=== PATIENT | female | born 1945 | race Caucasian/White ===

== ENCOUNTER 2017-08-26 16:10 | Inpatient (IN) | payer MEDICARE ==
[~2017-08-26] VITALS: Ht 165.1 cm; Wt 76.7 kg
[~2017-08-26 16:10] MED LIST: LATA0.00 EACH EYE; LEVO.025 PO; NIFE1TAB85 PO; VITA-13 PO
[2017-08-26 16:11] VITALS: BP 182/97; PULSE 111; RESP 18; TEMP 98.2; O2SAT 99
[2017-08-26] MEDS ORDERED: LEVO25TA4 PO (17:09)
[2017-08-26] MEDS ORDERED: NIFE30TA61 PO (17:10)
[2017-08-26] MEDS ORDERED: CHOL100025 CHEW (17:10)
[2017-08-26] MEDS ORDERED: LATA0.002 EACH EYE (17:10)
--- NOTE | 2017-08-26 17:45 | PD ---
HPI Chief Complaint: Abnormal Results Time Seen by Provider: 17:16 Travel History International Travel<30 days: No Contact w/Intl Traveler<30days: No Traveled to known affect area: No History of Present Illness HPI 72yo F with PMH of breast cancer said she was sent from her PMD DR. Herman to be admitted. Said she has been having headache for 3 weeks that is associated with expressive aphasia. Said she had a CT brain yesterday and then an MRI brain at [facility] today and it showed that she has a mass in her brain. Pt had double mastectomy in end of 2015 and had been cancer free until probably now. Denies any fever, chest pain, sob, n/v, abdominal pain, focal weakness or numbness. PFSH Past Medical History Arthritis: Yes Cancer: Yes (BILAT) Cardiovascular Problems: No High Cholesterol: Yes Diabetes: No Diminished Hearing: No Endocrine: Yes Glaucoma: No Genitourinary: No Hepatitis: No Hiatal Hernia: No Hypertension: Yes Immune Disorder: No Medical other: No Musculoskeletal: Yes (ARTHRITIS) Neurologic: No Psychiatric: No Reproductive: No Respiratory: No Radiation Therapy: Yes Thyroid Disease: Yes Tetanus Vaccination: < 5 Years Influenza Vaccination: No Menopausal: Yes : 3 Para: 2 Miscarriage: 1 : 0 Past Surgical History Abdominal Surgery: No AICD: No Cardiac Surgery: No Ear Surgery: No Endocrine Surgery: Yes (PARTIAL THYROIDECTOMY, PARATHYROIDECTOMY) Eye Surgery: Yes (BILAT EYE CATARACT) Genitourinary Surgery: No Gynecologic Surgery: Yes (LUMPECTOMY LEFT BREAST/HYSTERECTOMY) Hysterectomy: Yes Joint Replacement: No Oral Surgery: No Pacemaker: No Thoracic Surgery: No Social History Alcohol Use: No Tobacco Use: No Substance Use: No Allergies-Medications (Allergen,Severity, Reaction): Coded Allergies: No Known Allergies (Verified Allergy, Unknown, 08/26/17) Reported Meds & Prescriptions Reported Meds & Active Scripts Active Reported Latanoprost Opth Drops (Latanoprost) 0.005% Drops 1 Drop EACH EYE HS Refrigerate until opened. Vitamin D3 (Cholecalciferol) 1,000 Unit Chew 1,000 Units CHEW DAILY Nifedipine ER 24 HR (Nifedipine) 30 Mg Tab 30 Mg PO DAILY Levothyroxine (Levothyroxine Sodium) 25 Mcg Tab 25 Mcg PO DAILY Review of Systems Except as stated in HPI: all other systems reviewed are Neg Physical Exam Narrative GENERAL: 72yo F not in distress. SKIN: Focused skin assessment warm/dry. HEAD: Atraumatic. Normocephalic. EYES: Pupils equal and round at 3mm bilaterally. EOMI. ENT: No nasal bleeding or discharge. Mucous membranes pink and moist. NECK: Trachea midline. No JVD. CARDIOVASCULAR: Regular rate and rhythm. No murmur appreciated. RESPIRATORY: No accessory muscle use. Clear to auscultation. Breath sounds equal bilaterally. GASTROINTESTINAL: Abdomen soft, non-tender, nondistended. MUSCULOSKELETAL: No obvious deformities. No clubbing. No cyanosis. No edema. NEUROLOGICAL: Awake and alert. No obvious cranial nerve deficits. Motor grossly within normal limits. Sensation intact. Expressive aphasia. Data Data Last Documented VS Vital Signs Date Time Temp Pulse Resp B/P (MAP) Pulse Ox O2 Delivery O2 Flow Rate FiO2 08/26/17 18:50 74 18 188/86 (120) 97 Room Air 08/26/17 16:11 98.2 Orders Orders Complete Blood Count With Diff (08/26/17 17:41) Basic Metabolic Panel (Bmp) (08/26/17 17:41) Prothrombin Time / Inr (Pt) (08/26/17 17:41) Act Partial Throm Time (Ptt) (08/26/17 17:41) Type And Screen (08/26/17 17:41) Dexamethasone Inj (Decadron Inj) (08/27/17 00:00) Consult Neurosurgery (08/26/17 ) Consult Medical Oncology (08/26/17 ) (Hub Use Only)Inp Phy Cons/Ref (08/26/17 ) (Hub Use Only)In Phy Cons/Ref (08/26/17 ) Potassium Chloride (Kcl) (08/26/17 19:00) Admit Order (Ed Use Only) (08/26/17 18:53) Admit To Inpatient (08/26/17 ) Code Status (08/26/17 18:54) Vital Signs (Adult) MELISSA.Q1H (08/26/17 18:54) Activity Bed Rest (08/26/17 18:54) Elevate Head Of Bed (08/26/17 18:54) Neuro Checks . ORDERED (08/26/17 18:54) Intake + Output Q1H (08/26/17 18:54) Sodium Chlor 0.9% 1000 Ml Inj (Ns 1000 M (08/26/17 18:54) Sodium Chloride 0.9% Flush (Ns Flush) (08/26/17 19:00) Sodium Chloride 0.9% Flush (Ns Flush) (08/26/17 21:00) Acetaminophen (Tylenol) (08/26/17 19:00) Acetamin-Hydrocod 325-5 Mg ([place] 5-325 (08/26/17 19:00) Ondansetron Inj (Zofran Inj) (08/26/17 19:00) Albuterol Neb (Albuterol Neb) (08/26/17 19:00) Complete Blood Count With Diff (08/27/17 04:00) Comprehensive Metabolic Panel (08/27/17 04:00) Act Partial Throm Time (Ptt) (08/27/17 04:00) Prothrombin Time / Inr (Pt) (08/27/17 04:00) Magnesium (Mg) (08/27/17 04:00) Phosphorus (Po4) (08/27/17 04:00) Lactic Acid (08/27/17 04:00) Chest, Single Ap (08/27/17 ) Electrocardiogram (08/26/17 ) Resp Incentive Spirometry (08/26/17 ) Resp Oxygen Andre C Titrat 1-4 L (08/26/17 ) Pt Request For Service (08/26/17 18:54) [employer] Helper / Telemetry MELISSA.Q8H (08/26/17 18:54) Scd Bilateral/Knee High MELISSA.BID (08/26/17 18:54) Pharmacologic Contraindication (08/26/17 18:54) ^ Initiate Protocol (08/26/17 18:54) Instruction (08/26/17 18:54) [facility] Information (08/26/17 19:00) Chlorhexidine 2% Cloth (Chlorhexidine 2% (08/27/17 04:00) Chlorhexidine 2% Cloth (Chlorhexidine 2% (08/26/17 19:00) Mrsa Pcr Surveillance (08/26/17 18:54) Docusate Sodium-Senna (Renita-Colace) (08/26/17 21:00) Magnesium Hydroxide Liq (Milk Of Magnesi (08/26/17 19:00) Sennosides (Senokot) (08/26/17 19:00) Bisacodyl Supp (Dulcolax Supp) (08/26/17 19:00) Lactulose Liq (Lactulose Liq) (08/26/17 19:00) Inpatient Certification (08/26/17 ) Morphine Inj (Morphine Inj) (08/26/17 19:15) Labs Laboratory Tests Test 08/26/17 17:45 White Blood Count 8.1 TH/MM3 Red Blood Count 4.53 MIL/MM3 Hemoglobin 13.7 GM/DL Hematocrit 39.6 % Mean Corpuscular Volume 87.4 FL Mean Corpuscular Hemoglobin 30.2 PG Mean Corpuscular Hemoglobin Concent 34.6 % Red Cell Distribution Width 14.9 % Platelet Count 332 TH/MM3 Mean Platelet Volume 7.5 FL Neutrophils (%) (Auto) 74.5 % Lymphocytes (%) (Auto) 16.4 % Monocytes (%) (Auto) 7.9 % Eosinophils (%) (Auto) 0.8 % Basophils (%) (Auto) 0.4 % Neutrophils # (Auto) 6.0 TH/MM3 Lymphocytes # (Auto) 1.3 TH/MM3 Monocytes # (Auto) 0.6 TH/MM3 Eosinophils # (Auto) 0.1 TH/MM3 Basophils # (Auto) 0.0 TH/MM3 CBC Comment DIFF FINAL Differential Comment Prothrombin Time 9.8 SEC Prothromb Time International Ratio 1.0 RATIO Activated Partial Thromboplast Time 26.9 SEC Blood Urea Nitrogen 13 MG/DL Creatinine 0.79 MG/DL Random Glucose 108 MG/DL Calcium Level 9.2 MG/DL Sodium Level 138 MEQ/L Potassium Level 3.3 MEQ/L Chloride Level 102 MEQ/L Carbon Dioxide Level 27.0 MEQ/L Anion Gap 9 MEQ/L Estimat Glomerular Filtration Rate 72 ML/MIN [facility] Medical Decision Making Medical Screen Exam Complete: Yes Emergency Medical Condition: Yes Differential Diagnosis Metastatic disease vs. primary brain tumor Narrative Course 72yo F was sent here by PMD for admission after MRI brain today showed vasogenic edema and possible metastatic disease. Discussed with Dr. Mayorga, our neurosurgeon dental receptionist and he recommends decadron Q6hr, admission to [facility], and consult him and oncology. Decadron ordered as well as oncology consult and neurosurgery consult. Labs reviewed, unremarkable except mild hypokalemia which is replaced orally. Discussed with Dr. Arthur and accepted to his service. Critical Care Narrative Aggregate critical care was 35 minutes. Time to perform other separately billable procedures was not included in the critical care time. My time did not include minutes spent treating any other patients simultaneously or on activities that did not directly contribute to the patient's treatment. The services I provided to this patient were to treat and/or prevent clinically significant deterioration that could result in: cardiovascular collapse or . I provided critical care services requiring my management, as noted below: Chart data review, documentation time, medication orders and management, vital sign assessments/reviewing monitoring data, ordering and reviewing lab tests, ordering and interpreting/reviewing x-rays and diagnostic studies, care of the patient and discussion of the patient with the admitting physicians. Diagnosis Primary Impression: Mass of temporoparietal region of brain Admitting Information Admitting Physician Requests: Barbara Steinberg DO Aug 26, 2017 17:45
[2017-08-26 18:09] LABS: BASOPHIL % 0.4 % (0.0-2.0); EOSINOPHIL # 0.1 TH/MM3 (0-0.4); EOSINOPHIL % 0.8 % (0.0-4.0); HEMATOCRIT 39.6 % (35.0-46.0); HEMOGLOBIN 13.7 GM/DL (11.6-15.3); LYMPH % 16.4 % (9.0-44.0); LYMPHOCYTE # 1.3 TH/MM3 (1.0-4.8); MEAN CELL VOLUME 87.4 FL (80.0-100.0); MEAN CORPUSCULAR HEMOGLOBIN 30.2 PG (27.0-34.0); MEAN CORPUSCULAR HGB CONC 34.6 % (32.0-36.0); MEAN PLATELET VOLUME 7.5 FL (7.0-11.0); MONO % 7.9 % (0.0-8.0); MONOCYTE # 0.6 TH/MM3 (0-0.9); NEUT % 74.5 % (16.0-70.0); PLATELET COUNT 332 TH/MM3 (150-450); RED BLOOD COUNT 4.53 MIL/MM3 (4.00-5.30); RED CELL DISTRIBUTION WIDTH 14.9 % (11.6-17.2); WHITE BLOOD COUNT 8.1 TH/MM3 (4.0-11.0)
[2017-08-26 18:19] LABS: PROTHROMBIN TIME - PATIENT 9.8 SEC (9.8-11.6)
[2017-08-26 18:41] LABS: CALCIUM 9.2 MG/DL (8.5-10.1); CREATININE 0.79 MG/DL (0.50-1.00)
[2017-08-26 18:50] VITALS: BP 188/86; PULSE 74; RESP 18; O2SAT 97
[2017-08-26] MEDS ORDERED: RESP: ALBUTEROL 2.5 MG/3 ML NEB (PRN) INH (19:00)
[2017-08-26] MEDS ORDERED: LACTULOSE SYRUP 20 GM/30 ML CUP PO PRN (19:00)
[2017-08-26] MEDS ORDERED: GLUCAGON 1 MG/ML VIAL OTHER PRN (19:00)
[2017-08-26] MEDS ORDERED: SENNOSIDES 8.6 MG TAB PO PRN (19:00)
[2017-08-26] MEDS ORDERED: BISACODYL 10 MG SUPP RECTAL PRN (19:00)
[2017-08-26] MEDS ORDERED: SODIUM CHLORIDE 0.9% FLUSH 10 ML FLUSH IV FLUSH PRN (19:00)
[2017-08-26] MEDS ORDERED: POTASSIUM CHLORIDE 20 MEQ CONTROLLED RELEASE TAB PO ONE ×2 (19:00→21:00)
[2017-08-26] MEDS ORDERED: MAGNESIUM HYDROXIDE SUSP 30 ML CUP PO PRN (19:00)
[2017-08-26] MEDS ORDERED: DEXTROSE 50% IN WATER 50 ML VIAL(D50) IV PUSH PRN (19:00)
[2017-08-26] MEDS ORDERED: ONDANSETRON HCL 4 MG/2 ML VIAL IV PUSH PRN (19:00)
[2017-08-26] MEDS ORDERED: MISCELLANEOUS NURSING INFORMATION XX SCH (19:00)
[2017-08-26] MEDS ORDERED: CHLORHEXIDINE GLUCONATE 2 % 1 PACK (2 CLOTHS) TOP PRN (19:00)
--- NOTE | 2017-08-26 19:07 | HHI.HP ---
[facility] Service Critical Care Medicine Primary Care Physician Simeon Herrmann Jr, MD Admission Diagnosis Vasogenic edema Diagnosis: (1) Mass of temporoparietal region of brain Diagnosis: Principal (2) History of breast cancer in female Diagnosis: Principal (3) Hypothyroidism Diagnosis: Principal (4) Dyslipidemia Diagnosis: Secondary (5) Hypertension Diagnosis: Secondary (6) Hypokalemia Diagnosis: Principal (7) Elevated IOP Diagnosis: Secondary Chief Complaint: Presented from [place] via for brain mass Travel History International Travel<30 Days: No Contact w/Intl Traveler <30 Da: No Traveled to Known Affected Are: No History of Present Illness This is a 72-year-old female. Date of admission 08/26/2017. 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 She has a history of hypercalcemia status post partial parathyroidectomy. Patient presents to [facility] as a direct admit from doctor's office after an abnormal MRI. Patient has been experiencing headaches/occipitally based without vision changes for the past month. She has had gait imbalance disorder. She denies any seizure activity. She has not followed. She complains of headache as a 3 out of 10. Diffuse. Without radiation. Patient is CT yesterday without contrast and today had an MRI which I was able to review the report of. This revealed views a day continue with cortical enhancement and restricted diffusion in the left temporal occipital lobes. A smaller blister is seen in the left frontal and parietal lobes. Very small punctate hemorrhage in the left posterior parietal lobe. Dr. Mayorga/neurosurgery is contacted. Medicine oncology was consulted. We are asked to admit the patient. Patient received 4 mg dexamethasone IV is currently on levetiracetam 500 mill grams IV twice a day. Patient currently awake and alert with only significant neurological abnormality on examination abnormal finger to nose bilaterally. Review of Systems Constitutional: DENIES: Fatigue, Fever, Weight gain, Weight loss Endocrine: DENIES: Abnorml menstrual pattern Eyes: DENIES: Blurred vision, Double Vision Ears, nose, mouth, throat: DENIES: Throat pain Respiratory: DENIES: Apneas, Shortness of breath Cardiovascular: DENIES: Chest pain Gastrointestinal: DENIES: Nausea, Vomiting Genitourinary: DENIES: Urinary frequency Musculoskeletal: DENIES: Joint pain, Back pain Integumentary: DENIES: Pruritus, Rash Hematologic/lymphatic: DENIES: Bruising Immunologic/allergic: DENIES: Eczema Neurologic: COMPLAINS OF: Abnormal gait, Headache, DENIES: Localized weakness, Paresthesias Psychiatric: COMPLAINS OF: Anxiety, DENIES: Confusion, Mood changes Past Family Social History Allergies: Coded Allergies: No Known Allergies (Verified Adverse Reaction, Unknown, 08/26/17) Past Medical History Elevated IOC Hypertension Dyslipidemia Hypothyroidism History of papillary/intraductal mucinous rest carcinoma Past Surgical History Partial thyroidectomy Hysterectomy Parathyroidectomy Left breast lumpectomy Bilateral mastectomy with reconstruction and implants Reported Medications Latanoprost Opth Drops (Latanoprost) 0.005% Drops 1 Drop EACH EYE HS Refrigerate until opened. Vitamin D3 (Cholecalciferol) 1,000 Unit Chew 1,000 Units CHEW DAILY Nifedipine ER 24 HR (Nifedipine) 30 Mg Tab 30 Mg PO DAILY Levothyroxine (Levothyroxine Sodium) 25 Mcg Tab 25 Mcg PO DAILY Active Ordered Medications Reviewed in EMR Family History Father with colon cancer. Mother with NUCLE[employer] PLANT OPERATOR lymphoma. Social History Quit tobacco in her early 20s. No alcohol use. No illicit drug use. Physical Exam Vital Signs Vital Signs Date Time Temp Pulse Resp B/P (MAP) Pulse Ox O2 Delivery O2 Flow Rate FiO2 08/26/17 18:50 74 18 188/86 (120) 97 Room Air 08/26/17 17:04 Room Air 08/26/17 16:11 98.2 111 18 182/97 (125) 99 Room Air Physical Exam GENERAL: 72-year-old female currently resting in bed in no acute distress SKIN: Warm and dry. HEAD: Atraumatic. Normocephalic. EYES: Pupils equal and round. No scleral icterus. No injection or drainage. ENT: No nasal bleeding or discharge. Mucous membranes pink and moist. NECK: Trachea midline. No JVD. CARDIOVASCULAR: Regular rate and rhythm. S1, S2. No S4. Without murmur RESPIRATORY: No accessory muscle use. Clear to auscultation. Breath sounds equal bilaterally. GASTROINTESTINAL: Abdomen soft, non-tender, nondistended. Active bowel sounds appreciated. Positive Pfannenstiel scar in abdomen. MUSCULOSKELETAL: Extremities without noted in peripheral edema. No obvious deformities. NEUROLOGICAL: Awake and alert. Renal nerves II through XII grossly intact. Strength is equal symmetric bilaterally. Normal sensation. Abnormal finger- nose bilateral. Laboratory Laboratory Tests Test 08/26/17 17:45 White Blood Count 8.1 Red Blood Count 4.53 Hemoglobin 13.7 Hematocrit 39.6 Mean Corpuscular Volume 87.4 Mean Corpuscular Hemoglobin 30.2 Mean Corpuscular Hemoglobin Concent 34.6 Red Cell Distribution Width 14.9 Platelet Count 332 Mean Platelet Volume 7.5 Neutrophils (%) (Auto) 74.5 Lymphocytes (%) (Auto) 16.4 Monocytes (%) (Auto) 7.9 Eosinophils (%) (Auto) 0.8 Basophils (%) (Auto) 0.4 Neutrophils # (Auto) 6.0 Lymphocytes # (Auto) 1.3 Monocytes # (Auto) 0.6 Eosinophils # (Auto) 0.1 Basophils # (Auto) 0.0 CBC Comment DIFF FINAL Differential Comment Prothrombin Time 9.8 Prothromb Time International Ratio 1.0 Activated Partial Thromboplast Time 26.9 Blood Urea Nitrogen 13 Creatinine 0.79 Random Glucose 108 Calcium Level 9.2 Sodium Level 138 Potassium Level 3.3 Chloride Level 102 Carbon Dioxide Level 27.0 Anion Gap 9 Estimat Glomerular Filtration Rate 72 Result Diagram: 08/26/17 1745 08/26/17 1745 Imaging MRI brain - vasogenic edema associated with cortical enhancement and restricted diffusion identified in the left temporal occipital lobes. Smaller cortically based areas of enhancement seen in the left frontal and parietal lobes. Very small punctate hemorrhage in the left posterior parietal lobe. Septic Shock Reassessment Septic shock perfusion: reassessment completed Caprini VTE Risk Assessment Caprini VTE Risk Assessment: Mod/High Risk (score >= 2) VTE Pharm Contraindication: Active bleeding Caprini Risk Assessment Model Point Value = 1 Point Value = 2 Point Value = 3 Point Value = 5 Age 41-60 Minor surgery BMI > 25 kg/m2 Swollen legs Varicose veins or History of unexplained or recurrent spontaneous Oral contraceptives or hormone replacement Sepsis (< 1 month) Serious lung disease, including pneumonia (< 1 month) Abnormal pulmonary function Acute myocardial infarction Congestive heart failure (< 1 month) History of inflammatory bowel disease Medical patient at bed rest Age 61-74 Arthroscopic surgery Major open surgery (> 45 min) Laparoscopic surgery (> 45 min) Malignancy Confined to bed (> 72 hours) Immobilizing plaster cast Central venous access Age >= 75 History of VTE Family history of VTE Factor V Leiden Prothrombin [id number] Lupus anticoagulant Anticardiolipin antibodies Elevated serum homocysteine Heparin-induced thrombocytopenia Other congenital or acquired thrombophilia Stroke (< 1 month) Elective arthroplasty Hip, pelvis, or leg fracture Acute spinal cord injury (< 1 month) Prophylaxis Regimen Total Risk Factor Score Risk Level Prophylaxis Regimen 0-1 Low Early ambulation 2 Moderate Order ONE of the following: *Sequential Compression Device (SCD) *Heparin 5000 units SQ BID 3-4 Higher Order ONE of the following medications: *Heparin 5000 units SQ TID *Enoxaparin/Lovenox 40 mg SQ daily (WT < 150 kg, CrCl > 30 mL/min) *Enoxaparin/Lovenox 30 mg SQ daily (WT < 150 kg, CrCl > 10-29 mL/min) *Enoxaparin/Lovenox 30 mg SQ BID (WT < 150 kg, CrCl > 30 mL/min) AND/OR *Sequential Compression Device (SCD) 5 or more Highest Order ONE of the following medications: *Heparin 5000 units SQ TID (Preferred with Epidurals) *Enoxaparin/Lovenox 40 mg SQ daily (WT < 150 kg, CrCl > 30 mL/min) *Enoxaparin/Lovenox 30 mg SQ daily (WT < 150 kg, CrCl > 10-29 mL/min) *Enoxaparin/Lovenox 30 mg SQ BID (WT < 150 kg, CrCl > 30 mL/min) AND *Sequential Compression Device (SCD) Assessment and Plan Assessment and Plan Neuro/Psych: Left frontal parietal/temporal occipital lobe vasogenic edema/masses - likely breast cancer metastatic disease Small punctate hemorrhage left posterior parietal lobe p Elevated IOC MRI brain 08/26 at 20 mics revealed vasogenic edema associated with cortical has been restricted diffusion in the left temporal occipital. Small cortical-based areas of enhancement seen in the left frontal and parietal lobes. Very small punctate hemorrhage in the left posteroparietal lobe. Currently on dexamethasone 4 mg IV every 6 hours and levetiracetam 500 mill grams IV twice a day Seizure precautions Neurosurgery consultation - Dr. Mayorga Oncology consultation Continue latanoprost .005% 1 drop each eye at night CV: Hypertension Dyslipidemia Continue nifedipine 30 mg by mouth daily/home medication As needed labetalol 10 mg every hour/hydralazine 10 mg every hour to keep systolic blood pressure less than 160 Follow-up on EKG Currently not on lipid-lowering agents On normal saline at 84 cc an hour Resp: Nasal cannula if indicated for saturations greater than equal to 92% Incentive spirometry while awake Chest x-ray for a.m. ordered GI: Nothing by mouth after midnight. Pantoprazole 40 mg daily for GI prophylaxis Docusate sodium/senna 1 tablet twice a day for bowel regimen : No indication for Guerrero catheter Endo: Hypothyroidism History of parathyroidectomy 2009 Continue levothyroxine 25 mcg by mouth daily. Check a.m. TSH Sliding-scale insulin with Novulin R with Accu-Cheks to maintain euglycemia/low regimen before meals at bedtime Renal: Creatinine currently within normal limits Monitor urine output Accurate I's and O's Heme: History of intraductal/papillary and mucinous breast carcinoma status post bilateral mastectomy with reconstruction and implant placement CBC and coags within normal limits Oncology consultation ID: Monitor for infection MSK: Osteoarthritis Continue cholecalciferol 1000 units daily PT evaluate and treat FEN: Access - Utilize peripheral IV. Central line if indicated Prophylaxis - GI -pantoprazole 40 mg by mouth daily - DVT - SCDs/holding pharmacological prophylaxis the brain/small punctuate left posteroparietal lobe hemorrhage. Level II admission Code Status Full code Discussed Condition With Dr. Lopez/ED physician. Patient. Care plan discussed and all questions answered. Problem Qualifiers (1) Hypothyroidism: Qualified Codes: E03.9 - Hypothyroidism, unspecified (2) Hypertension: Qualified Codes: I10 - Essential (primary) hypertension (3) Elevated IOP: Qualified Codes: H40.053 - Ocular hypertension, bilateral BigPrudencio tavera MD Aug 26, 2017 19:07
[2017-08-26 19:23] VITALS: BP 178/87; PULSE 75; RESP 16; O2SAT 95
[2017-08-26] MEDS: SODIUM CHLOR 0.9% 1000 ML INJ 1,000 ML IV SCH (20:10)
[2017-08-26] MEDS: INSULIN NovoLIN REGULAR SUPPLEMENTAL SCALE SQ SCH (21:00)
[2017-08-26] MEDS: DOCUSATE SODIUM 50 MG/SENNA 8.6 MG TAB PO SCH (21:00)
[2017-08-26] MEDS: SODIUM CHLORIDE 0.9% FLUSH 10 ML FLUSH IV FLUSH SCH (21:00)
[2017-08-26 22:00] VITALS: BP 187/81; PULSE 81; RESP 20; TEMP 98.6; O2SAT 96
[2017-08-26] MEDS: levETIRAcetam INJ 500 MG in SODIUM CHLORIDE 0.9% INJ 100 ML IV SCH (22:13)
[2017-08-26] MEDS: hydrALAZINE HCL 20 MG/ML VIAL IV PUSH PRN (22:14)
--- NOTE | 2017-08-26 22:39 | PD.CONS ---
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 She presented with expressive aphasia and was snt to [facility] from doctor's office after an abnormal MRI. Patient has been experiencing headaches/occipitally based without vision changes for the past month. She has had gait imbalance disorder. She denies any seizure activity. No tongue bitting. No incontinence of stool or urine. She complains of headache as a 3 out of 10. Diffuse. Without radiation. Patient is CT yesterday without contrast and today had an MRI which showed cortical enhancement and restricted diffusion in the left temporal occipital lobes. A smaller blister is seen in the left frontal and parietal lobes. A small punctate hemorrhage in the left posterior parietal lobe. Neurosurgical consultation was requested Past Family Social History Allergies: Coded Allergies: No Known Allergies (Verified Allergy, Unknown, 08/26/17) Physical Exam Vital Signs Vital Signs Date Time Temp Pulse Resp B/P (MAP) Pulse Ox O2 Delivery O2 Flow Rate FiO2 08/26/17 21:16 08/26/17 19:24 81 17 95 Room Air 08/26/17 19:23 75 16 178/87 (117) 95 Room Air 08/26/17 18:50 74 18 188/86 (120) 97 Room Air 08/26/17 17:04 Room Air 08/26/17 16:11 98.2 111 18 182/97 (125) 99 Room Air Physical Exam The patient is alert, awake and oriented to time, place and person. Speech shows mild expressive aphasia. Higher cognitive functions are normal. Cranial nerve examination demonstrates the pupils to be equal, round, and reactive to light. Extra-ocular movements are intact. Facial motor and sensory function are normal and symmetrical. Gross hearing is intact, bilaterally. The uvula is midline and elevates symmetrically with the soft palate. Sternocleidomastoid and trapezius muscles have normal and symmetrical strength. Other cranial nerves are intact. Neck is soft and supple. Cervical spine has a full range of motion in anterior flexion, extension, lateral bending, and rotation without pain. There is no tenderness to palpation to the spinous processes or paraspinal muscles. Muscle testing reveals normal bulk and tone overall without rigidity, spasticity , fasciculations, or atrophy. Muscle strength is 5/5 in all muscle groups of both upper extremities including deltoid, biceps, triceps, brachioradialis, wrist extension and stained glass glazier helper. In the lower extremities, strength is 5/5 in both iliopsoas, quadriceps, hamstrings, plantar flexion, dorsiflexion, and extensor hallicus longus. Sensory examination is intact to light touch and sharp/dull discrimination in both the upper and lower extremities, symmetrically. Deep tendon reflexes are 2+ and symmetrical in the biceps, triceps, and brachioradialis, bilaterally, in the upper extremities. In the lower extremities , the patellar and Achilles are 2+, bilaterally. There is a bilateral plantar flexion response. Hoffmanns sign is negative. There is no clonus or other abnormal reflexes noted. Cerebellar examination is intact to [id number] test, rapid rhythmic alternating motion. There is no dysmetria, dysdiadochokinesia, truncal ataxia, or tremor. Laboratory Laboratory Tests Test 08/26/17 17:45 08/26/17 21:45 White Blood Count 8.1 Red Blood Count 4.53 Hemoglobin 13.7 Hematocrit 39.6 Mean Corpuscular Volume 87.4 Mean Corpuscular Hemoglobin 30.2 Mean Corpuscular Hemoglobin Concent 34.6 Red Cell Distribution Width 14.9 Platelet Count 332 Mean Platelet Volume 7.5 Neutrophils (%) (Auto) 74.5 Lymphocytes (%) (Auto) 16.4 Monocytes (%) (Auto) 7.9 Eosinophils (%) (Auto) 0.8 Basophils (%) (Auto) 0.4 Neutrophils # (Auto) 6.0 Lymphocytes # (Auto) 1.3 Monocytes # (Auto) 0.6 Eosinophils # (Auto) 0.1 Basophils # (Auto) 0.0 CBC Comment DIFF FINAL Differential Comment Prothrombin Time 9.8 Prothromb Time International Ratio 1.0 Activated Partial Thromboplast Time 26.9 Blood Urea Nitrogen 13 Creatinine 0.79 Random Glucose 108 Calcium Level 9.2 Sodium Level 138 Potassium Level 3.3 Chloride Level 102 Carbon Dioxide Level 27.0 Anion Gap 9 Estimat Glomerular Filtration Rate 72 Result Diagram: 08/26/17174408/26/171744 Assessment and Plan Assessment and Plan Caprini VTE Risk Assessment Caprini VTE Risk Assessment Caprini VTE Risk Assessment: Mod/High Risk (score >= 2) VTE Pharm Contraindication: Hemorrhage Caprini Risk Assessment Model Point Value = 1 Point Value = 2 Point Value = 3 Point Value = 5 Age 41-60 Minor surgery BMI > 25 kg/m2 Swollen legs Varicose veins or History of unexplained or recurrent spontaneous Oral contraceptives or hormone replacement Sepsis (< 1 month) Serious lung disease, including pneumonia (< 1 month) Abnormal pulmonary function Acute myocardial infarction Congestive heart failure (< 1 month) History of inflammatory bowel disease Medical patient at bed rest Age 61-74 Arthroscopic surgery Major open surgery (> 45 min) Laparoscopic surgery (> 45 min) Malignancy Confined to bed (> 72 hours) Immobilizing plaster cast Central venous access Age >= 75 History of VTE Family history of VTE Factor V Leiden Prothrombin [id number] Lupus anticoagulant Anticardiolipin antibodies Elevated serum homocysteine Heparin-induced thrombocytopenia Other congenital or acquired thrombophilia Stroke (< 1 month) Elective arthroplasty Hip, pelvis, or leg fracture Acute spinal cord injury (< 1 month) Prophylaxis Regimen Total Risk Factor Score Risk Level Prophylaxis Regimen 0-1 Low Early ambulation 2 Moderate Order ONE of the following: *Sequential Compression Device (SCD) *Heparin 5000 units SQ BID 3-4 Higher Order ONE of the following medications: *Heparin 5000 units SQ TID *Enoxaparin/Lovenox 40 mg SQ daily (WT < 150 kg, CrCl > 30 mL/min) *Enoxaparin/Lovenox 30 mg SQ daily (WT < 150 kg, CrCl > 10-29 mL/min) *Enoxaparin/Lovenox 30 mg SQ BID (WT < 150 kg, CrCl > 30 mL/min) AND/OR *Sequential Compression Device (SCD) 5 or more Highest Order ONE of the following medications: *Heparin 5000 units SQ TID (Preferred with Epidurals) *Enoxaparin/Lovenox 40 mg SQ daily (WT < 150 kg, CrCl > 30 mL/min) *Enoxaparin/Lovenox 30 mg SQ daily (WT < 150 kg, CrCl > 10-29 mL/min) *Enoxaparin/Lovenox 30 mg SQ BID (WT < 150 kg, CrCl > 30 mL/min) AND *Sequential Compression Device (SCD) Attending Statement Continue neuro checks in a serial fashion. Cannot rule out meningeal carcinomatosis/lymphomatosis/fungal infection. Recommend to obtain a lumbar puncture. Send cerebrospinal fluid for routine analysis as well as cytology Hypertension Continue nifedipine 30 mg by mouth daily/home medication As needed labetalol 10 mg every hour/hydralazine 10 mg every hour to keep systolic blood pressure less than 160 Follow-up on EKG Dyslipidemia. Currently not on lipid-lowering agents. Monitor Hypothyroidism History of parathyroidectomy 2009 Continue levothyroxine 25 mcg by mouth daily. Check a.m. TSH History of intraductal/papillary and mucinous breast carcinoma status post bilateral mastectomy with reconstruction and implant placement Consult oncology's. Her prior oncologist, has retired acetaminophen/cooling blanket as needed for temperature greater than 100.4 Pulmonary. Nasal cannula if indicated for saturations greater than equal to 92% Incentive spirometry while awake, aggressive pulmonary toilette, nasotracheal suction, and breathing treatments with nebulizers. Nutrition. NPO Renal. monitor closely urine output, BUN and creatinine Guerrero. Monitor intake and output. Monitor electrolytes and replace as indicated per ICU electrolyte replacement protocol. ENDO: Monitor bedside glucose and initiate low-dose insulin sliding scale as indicated for glucose greater than 180 central venous line Protonix for stress ulcer prophylaxis Caleb alcocer and SCD's for DVT prophylaxis. Johann Mayorga MD Aug 26, 2017 22:39
[2017-08-26] MEDS ORDERED: NIFEdipine 30 MG SUSTAINED RELEASE TAB PO ONE (23:00)
[2017-08-26] MEDS: LATANOPROST 0.005% OPHT SOLN 2.5 ML BTL EACH EYE SCH (23:00)
[2017-08-26] MEDS: DEXAMETHASONE SOD PHOS 4 MG/ML VIAL IV PUSH SCH (23:01)
[2017-08-27] VITALS (11 sets, daily range): BP systolic 117–139; BP diastolic 59–66; PULSE 68–105; RESP 15–17; TEMP 98.1–98.7; O2SAT 90–96
[2017-08-27] MEDS: CHLORHEXIDINE GLUCONATE 2 % 1 PACK (2 CLOTHS) TOP SCH (04:00)
[2017-08-27] MEDS: ACETAMINOPHEN/HYDROcodone 325 MG/5 MG TAB PO PRN (04:35)
--- NOTE | 2017-08-27 05:32 | RADRPT ---
EXAM DATE/TIME: 08/27/2017 04:12 [place] COMPARISON: No previous studies available for comparison. INDICATIONS : Short of breath. MEDICAL HISTORY : Hypertension. SURGICAL HISTORY : Hysterectomy. ENCOUNTER: Initial ACUITY: 1 day PAIN SCORE: Non-responsive. LOCATION: Bilateral chest FINDINGS: Single AP view of the chest. The lungs are clear. Cardiomediastinal silhouette within normal limits. No evidence of pleural effusion or pneumothorax. CONCLUSION: No acute cardiopulmonary disease identified. Rajan Holcomb MD on August 27, 2017 at 5:26 Board Certified Radiologist. This report was verified electronically.
[2017-08-27] MEDS: LEVOTHYROXINE SODIUM 25 MCG TAB PO SCH (05:37)
[2017-08-27] MEDS: DEXAMETHASONE SOD PHOS 4 MG/ML VIAL IV PUSH SCH ×3 (05:37→17:34)
[2017-08-27 05:54] LABS: AUTOMATED NEUTROPHIL # 6.7 TH/MM3 (1.8-7.7); BASOPHIL % 0.2 % (0.0-2.0); HEMOGLOBIN 12.3 GM/DL (11.6-15.3); LYMPH % 6.4 % (9.0-44.0); LYMPHOCYTE # 0.5 TH/MM3 (1.0-4.8); MEAN CORPUSCULAR HGB CONC 33.3 % (32.0-36.0); MEAN PLATELET VOLUME 7.1 FL (7.0-11.0); MONO % 1.1 % (0.0-8.0); MONOCYTE # 0.1 TH/MM3 (0-0.9); NEUT % 92.3 % (16.0-70.0); PLATELET COUNT 317 TH/MM3 (150-450); RED BLOOD COUNT 4.25 MIL/MM3 (4.00-5.30); RED CELL DISTRIBUTION WIDTH 14.8 % (11.6-17.2); WHITE BLOOD COUNT 7.3 TH/MM3 (4.0-11.0)
[2017-08-27 06:43] LABS: ALBUMIN 3.8 GM/DL (3.4-5.0); ALKALINE PHOSPHATASE 95 U/L (45-117); ALT (GPT) 18 U/L (10-53); AST (GOT) 12 U/L (15-37); BICARBONATE 26.9 MEQ/L (21.0-32.0); BLOOD UREA NITROGEN 14 MG/DL (7-18); CALCIUM 9.1 MG/DL (8.5-10.1); CHLORIDE 107 MEQ/L (98-107); CREATININE 0.87 MG/DL (0.50-1.00); GLOMERULAR FILTRATION RATE 64 ML/MIN (>89); GLUCOSE,RANDOM 152 MG/DL (74-106); MAGNESIUM 2.3 MG/DL (1.5-2.5); PHOSPHORUS 2.2 MG/DL (2.5-4.9); SODIUM (NA) 140 MEQ/L (136-145); TOTAL BILIRUBIN ADULT 0.5 MG/DL (0.2-1.0); TOTAL PROTEIN 7.6 GM/DL (6.4-8.2)
[2017-08-27] MEDS: INSULIN NovoLIN REGULAR SUPPLEMENTAL SCALE SQ SCH ×4 (08:00→20:33)
[2017-08-27] MEDS: SODIUM CHLOR 0.9% 1000 ML INJ 1,000 ML IV SCH ×2 (09:00→09:02)
[2017-08-27] MEDS ORDERED: NIFEdipine 30 MG SUSTAINED RELEASE TAB PO SCH ×2 (09:00→21:00)
[2017-08-27] MEDS: SODIUM CHLORIDE 0.9% FLUSH 10 ML FLUSH IV FLUSH SCH ×2 (09:00→20:03)
[2017-08-27] MEDS: CHOLECALCIFEROL (VIT D3) 1000 UNIT TAB PO SCH (09:04)
[2017-08-27] MEDS: levETIRAcetam INJ 500 MG in SODIUM CHLORIDE 0.9% INJ 100 ML IV SCH ×2 (09:04→20:01)
[2017-08-27] MEDS: PANTOPRAZOLE SOD 40 MG DELAYED RELEASE TAB PO SCH (09:04)
[2017-08-27] MEDS: DOCUSATE SODIUM 50 MG/SENNA 8.6 MG TAB PO SCH ×2 (09:04→20:01)
[2017-08-27] MEDS: MORPHINE SULFATE 2 MG/ML INJ IV PUSH PRN ×2 (10:09→12:09)
[2017-08-27] MEDS: LABETALOL HCL 100 MG/20 ML VIAL IV PUSH PRN (10:26)
[2017-08-27] MEDS: hydrALAZINE HCL 20 MG/ML VIAL IV PUSH PRN (10:41)
[2017-08-27] MEDS ORDERED: LORazepam 2 MG/ML VIAL ONE (10:55)
[2017-08-27] MEDS ORDERED: MORPHINE SULFATE 2 MG/ML INJ IV PUSH SCH (11:00)
[2017-08-27] MEDS ORDERED: LORazepam 2 MG/ML VIAL IV PUSH SCH (11:00)
--- NOTE | 2017-08-27 11:32 | PD.PROCEDR ---
Procedure Note Procedure After the risks and benefits were discussed the following procedure was performed: LUMBAR PUNCTURE: The patient was placed in the left lateral decubitus position. The lumbar area of the back was prepped with Chlorhexidine. The L3 -- L4 interspace was infiltrated with 1% lidocaine plain. LP needle was placed in the interspace. Opening pressure 24. Total 16 milliliters of clear CSF were obtained. 10 ml will be send for cytology per Dr. Mayorga request. Patient tolerated procedure well. Blood loss <1ml Ct Acevedo MD Aug 27, 2017 11:32
--- NOTE | 2017-08-27 11:41 | HHI.CCPN ---
Subjective Remarks/Hospital Course This is a 72-year-old female. Date of admission 08/26/2017. 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 She has a history of hypercalcemia status post partial parathyroidectomy. Patient presents to [facility] as a direct admit from doctor's office after an abnormal MRI. Patient has been experiencing headaches/occipitally based without vision changes for the past month. She has had gait imbalance disorder. She denies any seizure activity. She has not followed. She complains of headache as a 3 out of 10. Diffuse. Without radiation. Patient is CT yesterday without contrast and today had an MRI which I was able to review the report of. This revealed cortical enhancement and restricted diffusion in the left temporal occipital lobes. A smaller blister is seen in the left frontal and parietal lobes. Very small punctate hemorrhage in the left posterior parietal lobe. Dr. Mayorga/neurosurgery is contacted. Medicine oncology was consulted. We are asked to admit the patient. Patient received 4 mg dexamethasone IV is currently on levetiracetam 500 mill grams IV twice a day. Patient currently awake and alert with only significant neurological abnormality on examination abnormal finger to nose bilaterally. SUBJ 08/27/17: Patient lying in bed no acute distress. Slightly slurred speech, mild left facial droop, no other focal deficits. Discussed with Dr. Mayorga. He requested lumbar puncture which are performed CSF is clear. Opening pressure is 24. Cytology and further studies requested Objective Vital Signs Date Time Temp Pulse Resp B/P (MAP) Pulse Ox O2 Delivery O2 Flow Rate FiO2 08/27/17 08:27 96 21 08/27/17 06:00 68 08/27/17 05:35 15 08/27/17 04:00 98.4 117/59 (78) 08/26/17 19:24 Room Air Intake and Output 08/27/17 08/27/17 08/28/17 08:00 16:00 00:00 Output Total 900 ml Balance -900 ml Result Diagram: 08/27/17 0544 08/27/17 0544 Imaging MRI brain - vasogenic edema associated with cortical enhancement and restricted diffusion identified in the left temporal occipital lobes. Smaller cortically based areas of enhancement seen in the left frontal and parietal lobes. Very small punctate hemorrhage in the left posterior parietal lobe. Objective Remarks GENERAL: 72-year-old female currently resting in bed in no acute distress SKIN: Warm and dry. HEAD: Atraumatic. Normocephalic. EYES: Pupils equal and round. No scleral icterus. No injection or drainage. ENT: No nasal bleeding or discharge. Mucous membranes pink and moist. NECK: Trachea midline. No JVD. CARDIOVASCULAR: Regular rate and rhythm. S1, S2. No S4. Without murmur RESPIRATORY: No accessory muscle use. Clear to auscultation. Breath sounds equal bilaterally. GASTROINTESTINAL: Abdomen soft, non-tender, nondistended. Active bowel sounds appreciated. Positive Pfannenstiel scar in abdomen. MUSCULOSKELETAL: Extremities without noted in peripheral edema. No obvious deformities. NEUROLOGICAL: Awake and alert. Cranial nerves II through XII grossly intact. Mild R facial droop, slightly slurred speech with some word finding difficulty. Strength is equal symmetric bilaterally. Normal sensation. Abnormal finger- nose bilateral. A/P Assessment and Plan Neuro/Psych: Left frontal parietal/temporal occipital lobe vasogenic edema/masses - likely breast cancer metastatic disease Small punctate hemorrhage left posterior parietal lobe p Elevated C MRI brain 08/26/2017 revealed vasogenic edema associated with cortical has been restricted diffusion in the left temporal occipital. Small cortical-based areas of enhancement seen in the left frontal and parietal lobes. Very small punctate hemorrhage in the left posteroparietal lobe. Currently on dexamethasone 4 mg IV every 6 hours and levetiracetam 500 mill grams IV twice a day Seizure precautions Neurosurgery consultation - Dr. Mukesh BERRY performed -opening pressure 24, cytology and routine studies pending Oncology consultation-Dr. villanueva Continue latanoprost .005% 1 drop each eye at night CV: Hypertension Dyslipidemia Continue nifedipine 30 mg by mouth daily/home medication As needed labetalol 10 mg every hour/hydralazine 10 mg every hour to keep systolic blood pressure less than 160 Follow-up on EKG Currently not on lipid-lowering agents On normal saline at 84 cc an hour Resp: Nasal cannula if indicated for saturations greater than equal to 92% Incentive spirometry while awake Chest x-ray for a.m. ordered GI: Nothing by mouth after midnight. Pantoprazole 40 mg daily for GI prophylaxis Docusate sodium/senna 1 tablet twice a day for bowel regimen : No indication for Guerrero catheter Endo: Hypothyroidism History of parathyroidectomy 2009 Continue levothyroxine 25 mcg by mouth daily. Check a.m. TSH Sliding-scale insulin with Novulin R with Accu-Cheks to maintain euglycemia/low regimen before meals at bedtime Renal: Creatinine currently within normal limits Monitor urine output Accurate I's and O's Heme: History of intraductal/papillary and mucinous breast carcinoma status post bilateral mastectomy with reconstruction and implant placement CBC and coags within normal limits Oncology consultation ID: Monitor for infection MSK: Osteoarthritis Continue cholecalciferol 1000 units daily PT evaluate and treat FEN: Access - Utilize peripheral IV. Central line if indicated Prophylaxis - GI -pantoprazole 40 mg by mouth daily - DVT - SCDs/holding pharmacological prophylaxis the brain/small punctuate left posteroparietal lobe hemorrhage. Level II admission Ct Acevedo MD Aug 27, 2017 11:41
[2017-08-27 12:11] LABS: TOTAL PROTEIN,CSF 58.7 MG/DL (15.0-45.0)
[2017-08-27 12:43] LABS: SUPERNATE COLOR TUBE #1 CLEAR (CLEAR)
[2017-08-27 12:44] LABS: CSF LYMPHOCYTES 0 %; CSF NEUTROPHILS 0 %; RBC TUBE #4 5 /MM3; WBC TUBE #4 0 /MM3 (0-10)
--- NOTE | 2017-08-27 13:05 | EKG ---
Date Performed: 08/26/2017 Time Performed: 19:35:10 PTAGE: 72 years EKG: POOR INITIAL ANTERIOR FORCES, MAY BE NORMAL VARIANT FIRST DEGREE AV BLOCK MINOR NONSPECIFIC SEPTAL T-WAVE CHANGE Compared to previous tracing, the loss of septal force in V2 is new, but may be due to lead placement. T-wave change slightly more prominent in V2, but nonspecific. ABNORMAL ECG PREVIOUS TRACING : 09/22/2013 12.47 DOCTOR: Fernie Corey Interpretating Date/Time 08/27/2017 13:05:11
--- NOTE | 2017-08-27 13:33 | MB ---
cc: JUAN R TAYLOR MD, CAREN MCCOLLUM, JR,VICK BURNS DATE OF CONSULTATION: 08/27/2017 REASON FOR CONSULTATION: Patient with MRI brain findings concerning for multifocal metastatic disease involving the left temporal and occipital lobes of the brain associated with subacute infarcts. PRIMARY CARE PHYSICIAN: Dr. Vick Felix with [facility]. REQUESTING PHYSICIAN: Consult requested by the critical care service. 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 She was recommended followup and observation. She had relapsed disease in January of 2016 when she was found to have left breast well-differentiated ductal carcinoma. On both occasions, her disease was strongly estrogen and progesterone receptor positive and [id number]. CHIEF COMPLAINT: Ms. Holcomb reports having developed increasing difficulty speaking over the past three weeks. She also reports having some pain involving her left cheek and facial bones. She reported the symptoms to her primary care physician and was recommended MRI of the brain with contrast, this was performed on 08/26/2017. Imaging studies revealed vasogenic edema associated with cortical enhancement and restricted diffusion involving the left temporal and occipital lobes. Additional smaller cortical-based areas of enhancement were seen involving the left frontal and parietal lobes. Given the patient's history of breast carcinoma, metastatic disease was thought to be the likely etiology. The patient was referred to [facility] for admission and evaluation by neurosurgery. She was seen by Dr. Mayorga who has requested the patient be evaluated by radiation oncology and medical oncology. PAST MEDICAL HISTORY: 1. Papillary carcinoma involving the left breast diagnosed in 2010. 2. 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 3. Glaucoma. 4. Hypertension. 5. Hypothyroidism. 6. Parathyroid adenoma. PAST SURGICAL HISTORY: 1. Multiple breast biopsies. 2. Lumpectomy with sentinel lymph node biopsy in 2010. 3. Bilateral mastectomy and breast reconstruction in 2015. 4. Parathyroid gland resection in 2009. FAMILY HISTORY: Mother of metastatic malignancy, she describes her mother has having "brain cancer". Her father of colon cancer. SOCIAL HISTORY: The patient is single. She lives at home alone. She has a son who lives in [facility]. She has a daughter who lives in [place]. The daughter is a nurse. The patient is a lifelong nonsmoker. The patient recalls, but is unable to express what her profession was. ALLERGIES: NO KNOWN DRUG ALLERGIES. CURRENT INPATIENT MEDICATIONS: 1. Keppra 500 milligrams IV q. 12 hours. 2. Normal saline 84 mL/hour. 3. Hydrocodone / acetaminophen 5/325 one tablet p.o. q. 4 hours. 4. Tylenol 650 milligrams p.o. q. 6 hours. 5. Vitamin D3 1000 units p.o. daily. 6. Dexamethasone 4 milligrams IV q. 6 hours. 7. Senna / Colace one tablet p.o. twice a day. 8. Hydralazine 10 milligrams IV q. 1 hour as needed for hypertension. 9. Labetalol 10 milligrams IV q. 1 hour as needed for hypertension with systolic over 160 or diastolic over 90. 10. Lactulose 30 mL daily. 11. Latanoprost 0.005% one drop each eye at night. 12. Levothyroxine 25 micrograms p.o. daily. 13. Morphine 2 milligrams IV q. 3 hours as needed for pain. 14. Nifedipine SR 30 mL p.o. daily. 15. Zofran 4 milligrams IV q. 6 hours as needed for nausea and vomiting. 16. Pantoprazole 40 milligrams p.o. daily. REVIEW OF SYSTEMS: A thirteen point review of systems was obtained: CONSTITUTIONAL: Ms. Holcomb reports fatigue, difficulty speaking over the past three weeks. She denies other constitutional complaints; specifically, fevers, chills, night sweats or loss of appetite. HEAD, EYES, EARS, NOSE, THROAT: Denies blurry vision, denies soreness in the throat, denies difficulty swallowing, she reports difficulty expressing her thoughts. She reports left-sided cheek pain / left-sided sinus pain. RESPIRATORY: Denies exertional dyspnea, cough, hemoptysis, pleuritic chest pain CARDIOVASCULAR: Denies angina-like chest pain, PND, orthopnea or palpitations. GI: Denies nausea, vomiting, diarrhea hematochezia, melena. : Denies dysuria, hematuria, urinary incontinence. CODE ENFORCEMENT OFFICER: Please see HPI, the only complaint she reports is difficulty expressing her thoughts and hesitancy in her speech. PHYSICAL EXAMINATION: VITAL SIGNS: Temperature 98.4 degrees Fahrenheit, heart rate ranging between 92-68 beats per minute, blood pressure 117/59, O2 sats 96% on room air. GENERAL APPEARANCE: Ms. Holcomb is an elderly female, she is laying in bed, she appears to be no acute distress, she has obvious expressive aphasia with hesitancy and some frustration at her inability to express herself. HEAD, EYES, EARS, NOSE, THROAT: Head is atraumatic, normocephalic, conjunctive are not pale. The sclerae are anicteric, extraocular muscles intact. Pupils equal, round and reactive to light and accommodation. Oral exam - no pharyngeal erythema. Moist mucous membranes. NECK: No palpable cervical or supraclavicular adenopathy. RESPIRATORY EXAM: Good air movement bilaterally without any added breath sounds. CARDIOVASCULAR: Regular rate and rhythm, S1-S2. No obvious murmurs, gallops. BREAST EXAMINATION: (Performed in the presence of a female nurse cell attendant helper): She is status post bilateral mastectomy with bilateral breast reconstruction. There are no skin changes suggestive of her malignancy and no soft tissue or subcutaneous masses noted. In the left axilla, she does have a 2.5 cm rounded, smooth surfaced and movable mass and this is nontender. ABDOMINAL EXAM: Thin, soft and nontender, nondistended palpable organ enlargement; specifically, no hepatosplenomegaly. Positive bowel sounds. LOWER EXTREMITIES: No pretibial edema. No calf tenderness. CODE ENFORCEMENT OFFICER: She has 5/5 strength over her upper and lower extremities. She does have expressive aphasia. SKIN: No abnormalities appreciated. LABORATORY FINDINGS: Blood work dated 08/27/2017: WBC count 7.3, hemoglobin 12.3 gm/dl, hematocrit 37%, MCV 87, platelet count 317,000, absolute neutrophil count 6.7. Chemistries: Sodium 140, potassium 4.6, chloride 107, bicarb 27, BUN 14, creatinine 0.87, EGFR is 64, random glucose is 152, phosphorus is 2.2, calcium 9.1, magnesium 2.3, total bilirubin 0.5, AST 12, ALT 18, alkaline phosphatase 95, albumin is 3.8 TSH 1.2. Coags dated 08/27/2017: PT 10, INR 1, PTT 27. IMAGING STUDIES: MRI of the brain with IV contrast performed on 08/26/2017 at [facility] indicates vasogenic edema associated with cortical enhancement and restricted diffusion in the left temporal and occipital lobes. Additional smaller cortical-based areas of enhancement are seen in the left frontal and parietal lobes. Considering the patient's history of breast carcinoma, metastatic disease is a primary consideration. The radiographic findings are less likely to represent a subacute infarct with enhancement. Neurosurgical evaluation and short-term follow-up was recommended. Very small punctate hemorrhage in the left posterior parietal lobe. ASSESSMENT: Ms. Holcomb is a very pleasant 72-year-old lady with a history of relapsing left breast invasive ductal carcinoma as well as a history of left breast invasive mucin-producing papillary carcinoma, these were diagnosed in 2015 and 2010, respectively. She underwent primary surgical resection for each of the episodes of recurrence, and after her second recurrence, she underwent bilateral mastectomy with immediate reconstruction using latissimus dorsi flaps. She had not been recommended adjuvant endocrine therapy, and from speaking to the patient it is apparent that she had no routine follow-up with a medical oncologist. She now presents with symptoms of expressive aphasia and has findings involving the left temporal and left occipital lobe of the brain concerning for possible metastatic disease. Infarct or vascular insufficiency is thought to be less likely. I did review the scans personally and found there to be no evidence of a distinct ring-enhancing lesion which would classically be associated with metastatic disease to the brain. If this is metastatic disease, I would suspect this to be a leptomeningeal spread type of presentation. I did talk to the neurosurgical team and reviewed the scans with them. I will await their final recommendations. It would be reasonable to consider a biopsy of the involved area of the temporal / occipital lobes to confirm a diagnosis of metastatic disease. RECOMMENDATIONS: 1. History of breast carcinoma; stage I papillary carcinoma of the left breast in 2010 and a stage I invasive ductal carcinoma (well differentiated) of the left breast diagnosed in 2015. Both lesions were strongly estrogen and progesterone receptor positive and HER-2 non-amplified. She underwent primary surgical resection for each respective episode. She has not been on systemic therapy, i.e., either cytotoxic or endocrine therapy for her breast carcinoma. I would like to stage her systemically with a CT scan of the thorax and abdomen to rule out systemic disease burden or to rule out any other possible primary sites of malignancy which may explain her intracranial findings better. The oncology service will follow along with you. MD KERWIN Oconnor /8:53 AM /12:56 PM
[2017-08-27] MEDS: LATANOPROST 0.005% OPHT SOLN 2.5 ML BTL EACH EYE SCH (20:03)
[2017-08-28] VITALS (11 sets, daily range): BP systolic 113–161; BP diastolic 55–74; PULSE 72–101; RESP 14–18; TEMP 98–98.7; O2SAT 92–97
[2017-08-28] MEDS: DEXAMETHASONE SOD PHOS 4 MG/ML VIAL IV PUSH SCH ×5 (00:38→23:54)
[2017-08-28] MEDS: ACETAMINOPHEN/HYDROcodone 325 MG/5 MG TAB PO PRN (03:44)
[2017-08-28] MEDS: CHLORHEXIDINE GLUCONATE 2 % 1 PACK (2 CLOTHS) TOP SCH (04:00)
[2017-08-28] MEDS: LEVOTHYROXINE SODIUM 25 MCG TAB PO SCH (05:23)
[2017-08-28] MEDS: INSULIN NovoLIN REGULAR SUPPLEMENTAL SCALE SQ SCH ×4 (08:00→21:53)
[2017-08-28] MEDS: levETIRAcetam INJ 500 MG in SODIUM CHLORIDE 0.9% INJ 100 ML IV SCH ×2 (08:17→21:38)
[2017-08-28] MEDS: DOCUSATE SODIUM 50 MG/SENNA 8.6 MG TAB PO SCH ×2 (08:17→21:38)
[2017-08-28] MEDS: CHOLECALCIFEROL (VIT D3) 1000 UNIT TAB PO SCH (08:17)
[2017-08-28] MEDS: PANTOPRAZOLE SOD 40 MG DELAYED RELEASE TAB PO SCH (08:17)
--- NOTE | 2017-08-28 08:51 | PD.ONC.PN ---
Subjective Subjective Remarks Afebrile overnight. Patient eating breakfast next to bed. +expressive aphasia. tells me in broken speech she feels ok today. per nurse, patient is a bit more quiet today then she was yesterday. Objective Data Date Time Temp Pulse Resp B/P (MAP) Pulse Ox O2 Delivery O2 Flow Rate FiO2 08/28/17 08:06 97 21 08/28/17 08:00 94 Room Air 08/28/17 08:00 72 08/28/17 08:00 98.2 72 14 157/74 (101) 94 08/28/17 06:00 78 08/28/17 04:44 15 08/28/17 04:00 98.4 87 16 117/55 (75) 93 08/28/17 04:00 78 08/28/17 02:00 81 08/28/17 00:00 98.7 81 15 113/59 (77) 92 08/28/17 00:00 81 08/27/17 22:00 71 08/27/17 20:00 98.1 93 17 137/65 (89) 92 08/27/17 20:00 93 08/27/17 19:49 90 21 08/27/17 19:00 93 Room Air 08/27/17 16:00 98.4 105 16 139/66 (90) 96 08/27/17 16:00 105 08/27/17 12:14 16 08/27/17 12:00 98.7 97 15 137/62 (87) 93 08/27/17 12:00 97 Result Diagram: 08/27/17 0544 08/27/17 0544 Laboratory Results Laboratory Tests Test 08/27/17 11:21 CSF Volume (Tube 1) 8.0 ML CSF Supernatant Color (tube 1) CLEAR CSF Gross Blood (Tube 1) 0 CSF Volume (Tube 2) 2.0 ML CSF Supernatant Color (tube 2) CLEAR CSF Gross Blood (Tube 2) 0 CSF Volume (Tube 3) 2.1 ML CSF Supernatant Color (tube 3) CLEAR CSF Gross Blood (Tube 3) 0 CSF Volume (Tube 4) 2.2 ML CSF Supernatant Color (tube 4) CLEAR CSF Gross Blood (Tube 4) 0 CSF WBC (Tube 4) 0 /MM3 CSF RBC (Tube 4) 5 /MM3 CSF Neutrophils 0 % CSF Lymphocytes 0 % CSF Glucose 89 MG/DL CSF Lactate Dehydrogenase 30 U/L CSF Lactic Acid 2.2 MMOL/L CSF Total Protein 58.7 MG/DL Culture Results Microbiology Date/Time Source Procedure Growth Status 08/27/17 11:21 Cerebral Spinal Fluid Lumbar Puncture Fungal Smear - Final NO FUNGAL ELEMENTS SEEN. Resulted 08/27/17 11:21 Cerebral Spinal Fluid Lumbar Puncture Fungal Culture Pending Resulted 08/27/17 11:21 Cerebral Spinal Fluid Lumbar Puncture Acid Fast Stain Pending Received 08/27/17 11:21 Cerebral Spinal Fluid Lumbar Puncture Mycobacterial Culture Pending Received 08/27/17 11:21 Cerebral Spinal Fluid Lumbar Puncture Gram Stain - Final Resulted 08/27/17 11:21 Cerebral Spinal Fluid Lumbar Puncture CSF Culture - Preliminary NO GROWTH IN 24 HOURS. Resulted Imaging Studies Last Impressions Chest X-Ray 08/27/17 0000 Signed Impressions: Service Date/Time: Sunday, August 27, 2017 04:12 - CONCLUSION: No acute cardiopulmonary disease identified. Rajan Holcomb MD Administered Medications Medications (Trade) Dose Ordered Sig/Kristal Route PRN Reason Start Time Stop Time Status Last Admin Dose Admin Dexamethasone Sodium Phosphate (Decadron Inj) 4 mg Q6HR IV PUSH 08/27/17 00:00 08/28/17 05:23 Sodium Chloride 1,000 ml @ 84 mls/hr [id number] IV 08/26/17 18:54 08/27/17 09:02 Sodium Chloride (NS Flush) 2 ml BID IV FLUSH 08/26/17 21:00 08/27/17 20:03 Acetaminophen/ Hydrocodone Bitart (Grady 5-325 Mg) 1 tab Q4H PRN PO PAIN SCALE 1 TO 5 08/26/17 19:00 08/28/17 03:44 Morphine Sulfate (Morphine Inj) 2 mg Q3H PRN IV PUSH PAIN SCALE 6 TO 10 08/26/17 19:15 08/27/17 12:09 Ondansetron HCl (Zofran Inj) 4 mg Q6H PRN IV PUSH NAUSEA OR VOMITING 08/26/17 19:00 08/26/17 22:15 Senna/Docusate Sodium (Renita-Colace) 1 tab BID PO 08/26/17 21:00 08/28/17 08:17 Cholecalciferol (Vitamin D3) 1,000 units DAILY PO 08/27/17 09:00 08/28/17 08:17 Latanoprost (Xalatan 0.005% Opth Soln) 1 drop HS EACH EYE 08/26/17 21:00 08/27/17 20:03 Levothyroxine Sodium (Synthroid) 25 mcg DAILY@0600 PO 08/27/17 06:00 08/28/17 05:23 Labetalol HCl (Trandate Inj) 10 mg Q1HR PRN IV PUSH SBP>160, DBP>90, HR>65 08/26/17 19:00 08/27/17 10:26 Hydralazine HCl (Apresoline Inj) 10 mg Q1HR PRN IV PUSH SBP>160, DBP>90 08/26/17 19:00 08/27/17 10:41 Insulin Human Regular (NovoLIN R SUPPLEMENTAL SCALE) 1 ACHS SLIDING SCALE SQ 08/26/17 21:00 08/27/17 20:33 Levetriacetam 500 mg/Sodium Chloride 105 ml @ 420 mls/hr Q12HR IV 08/26/17 21:00 08/28/17 08:17 Pantoprazole Sodium (Protonix) 40 mg DAILY PO 08/27/17 09:00 08/28/17 08:17 Nifedipine (Procardia Xl) 30 mg DAILY@2100 PO 08/27/17 21:00 08/27/17 20:02 Objective Remarks GENERAL: Pleasant elderly female, sitting up in chair next to bed in hospital gown. Half eaten tray of breakfast food in front of her. She appears comfortable and in nad. SKIN: Warm and dry. HEAD: Normocephalic. EYES: No injection or drainage. NECK: Supple, trachea midline. CARDIOVASCULAR: Regular rate and rhythm RESPIRATORY: Breath sounds equal bilaterally. No accessory muscle use. GASTROINTESTINAL: Abdomen soft, non-tender, nondistended. EXTREMITIES: No cyanosis NEUROLOGICAL: awake, alert. able to move all extremities. +expressive aphasia. 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 then followup and observation. --relapsed disease in January of 2016 when she was found to have left breast well- differentiated ductal carcinoma. --On both occasions, her disease was strongly estrogen and progesterone receptor positive and [id number]. --has not been on systemic therapy, i.e., either cytotoxic or endocrine therapy for her breast carcinoma. --will need CT C/A/P for staging and to look for other possible primary lesion Assessment 72y/o female admitted with expressive aphasia x 3 weeks. MRI shows possible brain mets. h/o Papillary carcinoma involving the left breast diagnosed in 2010. invasive well-differentiated ductal carcinoma of the left breast diagnosed in January of 2016. Glaucoma. Hypertension. Hypothyroidism. Parathyroid adenoma. h/o Lumpectomy with sentinel lymph node biopsy in 2010. Bilateral mastectomy and breast reconstruction in 2015. Parathyroid gland resection in 2009. Plan 1. obtain staging CT C/A/P today 2. await LP findings Attending Statement The exam, history, and the medical decision-making described in the above note were completed with the assistance of the mid-level provider. I reviewed and agree with the findings presented. I attest that I had a [id number] encounter with the patient on the same day, and personally performed and documented my assessment and findings in the medical record. Patient seen and examined, vital signs, labs, medications and CT scan chest and abdomen pelvis reviewed independently. Today the patient is able to move her left upper and lower extremity as well as right upper and lower extremity is equally. The family notices some more hesitancy when it comes to speech. They are curious to know the results of her lumbar puncture which was performed on 08/27/2016. Additionally they would like to know the results of the CT chest abdomen and pelvis as soon as the scans have been performed. Subjectively the patient is not able to verbalize any significant complaints. Recommendation: Patient with history of papillary carcinoma of the left breast diagnosed in 2010 , well-differentiated ductal carcinoma of the left breast diagnosed in 2016. Both lesions were stage I and both of them were strongly estrogen and progesterone receptor positive and HER-2 nonamplified. She now has what appears to be leptomeningeal thickening involving the left temporal and left occipital lobes with resultant expressive aphasia. No definite area of metastatic disease identified on imaging scans. Neurosurgery's involved to help identify the etiology of the abnormal radiographic findings. Certainly metastatic malignancy is on the differential diagnosis list though it would be unusual for an individual with a personal history of stage I breast carcinoma on 2 occasions by about 6 years. On independent review of her CT scan chest abdomen and pelvis is no evidence of metastatic disease burden involving the lungs, mediastinum, bony structures or intra-abdominal organs. Etiology other than malignant neoplasm need to be entertained in this situation. She may require an open biopsy. Await results of lumbar puncture cytology. Tere Elizalde Aug 28, 2017 08:51 Bucky Pyle MD Aug 28, 2017 16:16
[2017-08-28] MEDS: SODIUM CHLORIDE 0.9% FLUSH 10 ML FLUSH IV FLUSH SCH ×2 (09:00→21:39)
[2017-08-28] MEDS: hydrALAZINE HCL 20 MG/ML VIAL IV PUSH PRN (09:06)
[2017-08-28] MEDS: LABETALOL HCL 100 MG/20 ML VIAL IV PUSH PRN (09:30)
[2017-08-28] MEDS ORDERED: DIATRIZOATE MEGLUM/DIATRIZOATE SOD 9 ML CUP PO ONE (12:15)
--- NOTE | 2017-08-28 13:07 | HHI.NSPN ---
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 She presented with expressive aphasia and was snt to [facility] from doctor's office after an abnormal MRI. Patient has been experiencing headaches/occipitally based without vision changes for the past month. She has had gait imbalance disorder. She denies any seizure activity. No tongue bitting. No incontinence of stool or urine. She complains of headache as a 3 out of 10. Diffuse. Without radiation. Patient is CT yesterday without contrast and today had an MRI which showed cortical enhancement and restricted diffusion in the left temporal occipital lobes. A smaller blister is seen in the left frontal and parietal lobes. A small punctate hemorrhage in the left posterior parietal lobe. Neurosurgical consultation was requested Labs, Micro, & Vital Signs Results Date Time Temp Pulse Resp B/P (MAP) Pulse Ox O2 Delivery O2 Flow Rate FiO2 08/28/17 12:00 101 08/28/17 08:06 97 21 08/28/17 08:00 94 Room Air 08/28/17 08:00 72 08/28/17 08:00 98.2 72 14 157/74 (101) 94 08/28/17 06:00 78 08/28/17 04:44 15 08/28/17 04:00 98.4 87 16 117/55 (75) 93 08/28/17 04:00 78 08/28/17 02:00 81 08/28/17 00:00 98.7 81 15 113/59 (77) 92 08/28/17 00:00 81 08/27/17 22:00 71 08/27/17 20:00 98.1 93 17 137/65 (89) 92 08/27/17 20:00 93 08/27/17 19:49 90 21 08/27/17 19:00 93 Room Air 08/27/17 16:00 98.4 105 16 139/66 (90) 96 08/27/17 16:00 105 Constitutional Vital Signs Date Time Temp Pulse Resp B/P (MAP) Pulse Ox O2 Delivery O2 Flow Rate FiO2 08/28/17 12:00 101 08/28/17 08:06 97 21 08/28/17 08:00 94 Room Air 08/28/17 08:00 72 08/28/17 08:00 98.2 72 14 157/74 (101) 94 08/28/17 06:00 78 08/28/17 04:44 15 08/28/17 04:00 98.4 87 16 117/55 (75) 93 08/28/17 04:00 78 08/28/17 02:00 81 08/28/17 00:00 98.7 81 15 113/59 (77) 92 08/28/17 00:00 81 08/27/17 22:00 71 08/27/17 20:00 98.1 93 17 137/65 (89) 92 08/27/17 20:00 93 08/27/17 19:49 90 21 08/27/17 19:00 93 Room Air 08/27/17 16:00 98.4 105 16 139/66 (90) 96 08/27/17 16:00 105 Physical Exam Ms Holcomb is alert, awake and oriented to time, place and person. Speech shows mild expressive aphasia. Higher cognitive functions are normal. Cranial nerve examination demonstrates the pupils to be equal, round, and reactive to light. Extra-ocular movements are intact. Facial motor and sensory function are normal and symmetrical. Gross hearing is intact, bilaterally. The uvula is midline and elevates symmetrically with the soft palate. Sternocleidomastoid and trapezius muscles have normal and symmetrical strength. Other cranial nerves are intact. Neck is soft and supple. Cervical spine has a full range of motion in anterior flexion, extension, lateral bending, and rotation without pain. There is no tenderness to palpation to the spinous processes or paraspinal muscles. Muscle testing reveals normal bulk and tone overall without rigidity, spasticity , fasciculations, or atrophy. Muscle strength is 5/5 in all muscle groups of both upper extremities including deltoid, biceps, triceps, brachioradialis, wrist extension and space officer. In the lower extremities, strength is 5/5 in both iliopsoas, quadriceps, hamstrings, plantar flexion, dorsiflexion, and extensor hallicus longus. Sensory examination is intact to light touch and sharp/dull discrimination in both the upper and lower extremities, symmetrically. Deep tendon reflexes are 2+ and symmetrical in the biceps, triceps, and brachioradialis, bilaterally, in the upper extremities. In the lower extremities , the patellar and Achilles are 2+, bilaterally. There is a bilateral plantar flexion response. Hoffmanns sign is negative. There is no clonus or other abnormal reflexes noted. Cerebellar examination is intact to [id number] test, rapid rhythmic alternating motion. There is no dysmetria, dysdiadochokinesia, truncal ataxia, Medications Current Medications Current Medications Dexamethasone Sodium Phosphate (Decadron Inj) 4 mg Q6HR IV PUSH Last administered on 08/28/17 11:42; Start 08/27/17 at 00:00 Potassium Chloride (KCl) 20 meq ONCE ONCE PO Last administered on 08/26/17 20: 10; Start 08/26/17 at 19:00; Stop 08/26/17 at 19:01; Status DC Sodium Chloride 1,000 ml @ 84 mls/hr [id number] IV Last administered on 08/27/17 09:00; Start 08/26/17 at 18:54 Sodium Chloride (NS Flush) 2 ml UNSCH PRN IV FLUSH FLUSH AFTER USING IV ACCESS ; Start 08/26/17 at 19:00 Sodium Chloride (NS Flush) 2 ml BID IV FLUSH Last administered on 08/27/17at 20: 03; Start 08/26/17 at 21:00 Acetaminophen (Tylenol) 650 mg Q6H PRN PO FOR FEVER >101F; Start 08/26/17 at 19: 00 Acetaminophen/ Hydrocodone Bitart (Jefferson 5-325 Mg) 1 tab Q4H PRN PO PAIN SCALE 1 TO 5 Last administered on 08/28/17 03:44; Start 08/26/17 at 19:00 Morphine Sulfate (Morphine Inj) 2 mg Q3H PRN IV PUSH PAIN SCALE 6 TO 10 Last administered on 08/27/17at 12:09; Start 08/26/17 at 19:15 Ondansetron HCl (Zofran Inj) 4 mg Q6H PRN IV PUSH NAUSEA OR VOMITING Last administered on 08/26/17at 22:15; Start 08/26/17 at 19:00 Albuterol Sulfate (Albuterol Neb) 2.5 mg Q2HR NEB PRN INH SOB/WHEEZING; Start 08/26/17 at 19:00 Miscellaneous Information 1 [id number] XX ; Start 08/26/17 at 19:00 Chlorhexidine Gluconate (Chlorhexidine 2% Cloth) 3 pack Taper DAILY@04 TOP ; Start 08/27/17 at 04:00; Stop 08/23/18 at 03:59 Chlorhexidine Gluconate (Chlorhexidine 2% Cloth) 3 pack UNSCH PRN TOP HYGIENIC CARE; Start 08/26/17 at 19:00 Senna/Docusate Sodium (Renita-Colace) 1 tab BID PO Last administered on 08/28/17at 08:17; Start 08/26/17 at 21:00 Magnesium Hydroxide (Milk Of Magnesia Liq) 30 ml Q12H PRN PO Mild constipation ; Start 08/26/17 at 19:00 Sennosides (Senokot) 17.2 mg Q12H PRN PO Moderate constipation; Start 08/26/17 at 19:00 Bisacodyl (Dulcolax Supp) 10 mg DAILY PRN RECTAL SEVERE CONSITIPATION; Start at 19:00 Lactulose (Lactulose Liq) 30 ml DAILY PRN PO SEVERE CONSITIPATION; Start at 19:00 Cholecalciferol (Vitamin D3) 1,000 units DAILY PO Last administered on at 08:17; Start 08/27/17 at 09:00 Latanoprost (Xalatan 0.005% Opt Soln) 1 drop HS EACH EYE Last administered on 08/27/17at 20:03; Start 08/26/17 at 21:00 Levothyroxine Sodium (Synthroid) 25 mcg DAILY@0600 PO Last administered on at 05:23; Start 08/27/17 at 06:00 Nifedipine (Procardia Xl) 30 mg DAILY PO ; Start 08/27/17 at 09:00; Stop 08/27/17 at 09:00; Status DC Labetalol HCl (Trandate Inj) 10 mg Q1HR PRN IV PUSH SBP>160, DBP>90, HR>65 Last administered on 08/27/17at 10:26; Start 08/26/17 at 19:00 Hydralazine HCl (Apresoline Inj) 10 mg Q1HR PRN IV PUSH SBP>160, DBP>90 Last administered on 08/28/17at 09:06; Start 08/26/17 at 19:00 Dextrose (D50w (Vial) Inj) 50 ml UNSCH PRN IV PUSH HYPOGLYCEMIA-SEE COMMENTS; Start 08/26/17 at 19:00 Glucagon (Glucagon Inj) 1 mg UNSCH PRN OTHER HYPOGLYCEMIA-SEE COMMENTS; Start 08/26/17 at 19:00 Insulin Human Regular (NovoLIN R SUPPLEMENTAL SCALE) 1 ACHS SLIDING SCALE SQ Last administered on 08/28/17at 11:39; Start 08/26/17 at 21:00 Potassium Chloride (KCl) 20 meq ONCE ONCE PO Last administered on 08/26/17at 22: 14; Start 08/26/17 at 21:00; Stop 08/26/17 at 21:01; Status DC Levetriacetam 500 mg/Sodium Chloride 105 ml @ 420 mls/hr Q12HR IV Last administered on 08/28/17at 08:17; Start 08/26/17 at 21:00 Pantoprazole Sodium (Protonix) 40 mg DAILY PO Last administered on 08/28/17at 08: 17; Start 08/27/17 at 09:00 Nifedipine (Procardia Xl) 30 mg DAILY@2100 PO Last administered on 08/27/17at 20: 02; Start 08/27/17 at 21:00 Nifedipine (Procardia Xl) 30 mg NOW ONCE PO Last administered on 08/26/17at 23: 03; Start 08/26/17 at 23:00; Stop 08/26/17 at 23:04; Status DC Lorazepam (Ativan Inj) 2 mg STK-MED ONCE .ROUTE ; Start 08/27/17 at 10:55; Stop 08/27/17 at 10:56; Status DC Lorazepam (Ativan Inj) 2 mg UNSCH X1 IV PUSH Last administered on 08/27/17at 10: 09; Start 08/27/17 at 11:00; Stop 08/27/17 at 18:00; Status DC Morphine Sulfate (Morphine Inj) 4 mg UNSCH X1 IV PUSH ; Start 08/27/17 at 11:00 ; Stop 08/27/17 at 18:00; Status DC Diatrizoate Meglum/ Diatrizoate Sod ( Gastrocheryl Liq) 18 ml ONCE ONCE PO Last administered on 08/28/17at 12:05; Start 08/28/17 at 12:15; Stop 08/28/17 at 12: 16; Status DC Medical Decision Making MDM Remarks Last 48 hours Impressions Chest X-Ray 08/27/17 0000 Signed Impressions: Service Date/Time: Sunday, August 27, 2017 04:12 - CONCLUSION: No acute cardiopulmonary disease identified. Rajan Holcomb MD Plan Plan Remarks Caprini VTE Risk Assessment Caprini VTE Risk Assessment Caprini VTE Risk Assessment: Mod/High Risk (score >= 2) VTE Pharm Contraindication: Hemorrhage Caprini Risk Assessment Model Point Value = 1 Point Value = 2 Point Value = 3 Point Value = 5 Age 41-60 Minor surgery BMI > 25 kg/m2 Swollen legs Varicose veins or History of unexplained or recurrent spontaneous Oral contraceptives or hormone replacement Sepsis (< 1 month) Serious lung disease, including pneumonia (< 1 month) Abnormal pulmonary function Acute myocardial infarction Congestive heart failure (< 1 month) History of inflammatory bowel disease Medical patient at bed rest Age 61-74 Arthroscopic surgery Major open surgery (> 45 min) Laparoscopic surgery (> 45 min) Malignancy Confined to bed (> 72 hours) Immobilizing plaster cast Central venous access Age >= 75 History of VTE Family history of VTE Factor V Leiden Prothrombin [id number] Lupus anticoagulant Anticardiolipin antibodies Elevated serum homocysteine Heparin-induced thrombocytopenia Other congenital or acquired thrombophilia Stroke (< 1 month) Elective arthroplasty Hip, pelvis, or leg fracture Acute spinal cord injury (< 1 month) Prophylaxis Regimen Total Risk Factor Score Risk Level Prophylaxis Regimen 0-1 Low Early ambulation 2 Moderate Order ONE of the following: *Sequential Compression Device (SCD) *Heparin 5000 units SQ BID 3-4 Higher Order ONE of the following medications: *Heparin 5000 units SQ TID *Enoxaparin/Lovenox 40 mg SQ daily (WT < 150 kg, CrCl > 30 mL/min) *Enoxaparin/Lovenox 30 mg SQ daily (WT < 150 kg, CrCl > 10-29 mL/min) *Enoxaparin/Lovenox 30 mg SQ BID (WT < 150 kg, CrCl > 30 mL/min) AND/OR *Sequential Compression Device (SCD) 5 or more Highest Order ONE of the following medications: *Heparin 5000 units SQ TID (Preferred with Epidurals) *Enoxaparin/Lovenox 40 mg SQ daily (WT < 150 kg, CrCl > 30 mL/min) *Enoxaparin/Lovenox 30 mg SQ daily (WT < 150 kg, CrCl > 10-29 mL/min) *Enoxaparin/Lovenox 30 mg SQ BID (WT < 150 kg, CrCl > 30 mL/min) AND *Sequential Compression Device (SCD) Attending Statement Continue neuro checks in a serial fashion. Cannot rule out meningeal carcinomatosis/lymphomatosis/fungal infection. Status post lumbar puncture. cytology is pending CT of the chest abdomen and pelvis today Hypertension. Continue nifedipine 30 mg by mouth daily/home medication As needed labetalol 10 mg every hour/hydralazine 10 mg every hour to keep systolic blood pressure less than 160 Follow-up on EKG Dyslipidemia. Currently not on lipid-lowering agents. Monitor Hypothyroidism History of parathyroidectomy 2009 Continue levothyroxine 25 mcg by mouth daily. Check a.m. TSH History of intraductal/papillary and mucinous breast carcinoma status post bilateral mastectomy with reconstruction and implant placement Consult oncology's. Her prior oncologist, has retired acetaminophen/cooling blanket as needed for temperature greater than 100.4 Pulmonary. Nasal cannula if indicated for saturations greater than equal to 92% Incentive spirometry while awake, aggressive pulmonary toilette, nasotracheal suction, and breathing treatments with nebulizers. Nutrition. Oral diet Renal. Continue to monitor closely urine output, BUN and creatinine ENDO: Continue to Monitor bedside glucose and initiate low-dose insulin sliding scale as indicated for glucose greater than 180 Continue Protonix for stress ulcer prophylaxis Continue Caleb alcocer and SCD's for DVT prophylaxis. Johann Mayorga MD Aug 28, 2017 13:07
[2017-08-28] MEDS ORDERED: IOHEXOL 350 MG/ML 10 ML VIAL (for RAD DIAG) IVCONTRAST ONE (15:59)
--- NOTE | 2017-08-28 16:47 | RADRPT ---
EXAM DATE/TIME: 08/28/2017 15:34 [facility] COMPARISON: CT ABDOMEN & PELVIS W CONTRAST, August 28, 2017, 15:38. CT THORAX W CONTRAST, August 28, 2017, 15: 38. CT BRAIN W/O CONTRAST, September 22, 2013, 10:29. INDICATIONS : Altered mental status. Evaluate for hemorrhage. RADIATION DOSE: 49.49 CTDIvol (mGy) ; Tabletop CT Head MEDICAL HISTORY : Hypertension. Carcinoma, breast. SURGICAL HISTORY : None. ENCOUNTER: Initial ACUITY: 1 day PAIN SCALE: 3/10 LOCATION: cranial TECHNIQUE: Multiple contiguous axial images were obtained of the head. Using automated exposure control and adj ustment of the mA and/or kV according to patient size, radiation dose was kept as low as reasonably a chievable to obtain optimal diagnostic quality images. DICOM format image data is available electro nically for review and comparison. FINDINGS: There is decreased density in the left frontal lobe as well as in the left occipital lobe and left te mporal lobe a wedge-shaped fashion though this is not contiguous. This may reflect infarct no under l tarun metastatic disease cannot be splinted considering the history of breast carcinoma. Contrast enha nced MRI is recommended. No other mouth is identified in the right hemisphere. Posterior fossa struct ures are unremarkable. CONCLUSION: 1. Multiple areas of decreased density in the left cerebral hemisphere which may reflect vasogenic ed mike associated with metastatic disease or infarction possibly embolic. Contrast enhanced MRI is recom mended. Galen Melgar MD on August 28, 2017 at 16:42 Board Certified Radiologist. This report was verified electronically.
[2017-08-28] MEDS: ACETAMINOPHEN 325 MG TAB PO PRN (17:26)
--- NOTE | 2017-08-28 17:32 | RADRPT ---
EXAM DATE/TIME: 08/28/2017 15:38 [facility] COMPARISON: No previous studies available for comparison. INDICATIONS : Abdominal pain, evaluate for metastatic disease. IV CONTRAST: 95 cc Omnipaque 350 (iohexol) IV ; Cumulative dose for multiple exams. ORAL CONTRAST: Prescribed oral contrast ingested. RADIATION DOSE: 15.21 CTDIvol (mGy) ; Combined studies - Thorax/Abdomen/Pelvis MEDICAL HISTORY : Hypertension. Carcinoma, breast. SURGICAL HISTORY : Hysterectomy. Left lumpectomy. ENCOUNTER: Initial ACUITY: 1 day PAIN SCALE: 3/10 LOCATION: Abdomen. TECHNIQUE: Volumetric scanning of the abdomen and pelvis was performed. Using automated exposure control and ad justment of the mA and/or kV according to patient size, radiation dose was kept as low as reasonably achievable to obtain optimal diagnostic quality images. DICOM format image data is available electro nically for review and comparison. FINDINGS: Examination of the lung bases demonstrates no abnormality. No pleural fluid is identified. No pulmona ry nodules are present. The liver and spleen are free of focal defects. The gallbladder and pancreas demonstrate no abnormality. The adrenal glands are normal. The kidneys demonstrate no evidence of elvia id renal mass or hydronephrosis. No free fluid or abdominal masses are identified. No para-aortic cristo nopathy is seen. Examination of the right lower quadrant demonstrates no abnormality. The appendix is identified and appears normal. Examination of the pelvis demonstrates no evidence of free fluid or pelvic mass. No abnormally enlarg ed inguinal or retroperitoneal lymph nodes are present. The bladder is unremarkable. There is diverti culosis without evidence of diverticulitis. CONCLUSION: 1. No evidence of acute abdominal or pelvic process. No masses are identified. 2. Diverticulosis without evidence of diverticulitis. Galen Melgar MD on August 28, 2017 at 17:28 Board Certified Radiologist. This report was verified electronically.
--- NOTE | 2017-08-28 17:33 | RADRPT ---
EXAM DATE/TIME: 08/28/2017 15:38 [facility] COMPARISON: No previous studies available for comparison. INDICATIONS : Shortness of breath, evaluate for metastatic disease. IV CONTRAST: 95 cc Omnipaque 350 (iohexol) IV ; Cumulative dose for multiple exams. RADIATION DOSE: 15.21 CTDIvol (mGy) ; Combined studies - Thorax/Abdomen/Pelvis MEDICAL HISTORY : Hypertension. Carcinoma, breast. SURGICAL HISTORY : Hysterectomy. Left lumpectomy. ENCOUNTER: Initial ACUITY: 1 day PAIN SCALE: 0/10 LOCATION: chest TECHNIQUE: Volumetric scanning of the chest was performed. Using automated exposure control and adjustment of t he mA and/or kV according to patient size, radiation dose was kept as low as reasonably achievable to obtain optimal diagnostic quality images. DICOM format image data is available electronically for review and comparison. Follow-up recommendations for detected pulmonary nodules are based at a minimum on nodule size and pa tient risk factors according to Fleischner Society Guidelines. FINDINGS: LUNGS: There is no consolidation or pneumothorax. No concerning pulmonary nodule is visualized. PLEURA: There is no pleural thickening or pleural effusion. MEDIASTINUM: The heart and great vessels demonstrate no acute abnormality. There is no mediastinal or hilar lymph adenopathy. AXILLAE: Within normal limits. No lymphadenopathy. SKELETAL: Within normal limits for patient age. MISCELLANEOUS: The visualized upper abdominal organs demonstrate no acute abnormality. CONCLUSION: 1. No evidence of acute thoracic abnormality. No masses are identified. No evidence of metastatic dis ease. Galen Melgar MD on August 28, 2017 at 17:30 Board Certified Radiologist. This report was verified electronically.
--- NOTE | 2017-08-28 18:24 | HHI.CCPN ---
Subjective Remarks/Hospital Course This is a 72-year-old female. Date of admission 08/26/2017. 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 She has a history of hypercalcemia status post partial parathyroidectomy. Patient presents to [facility] as a direct admit from doctor's office after an abnormal MRI. Patient has been experiencing headaches/occipitally based without vision changes for the past month. She has had gait imbalance disorder. She denies any seizure activity. She has not followed. She complains of headache as a 3 out of 10. Diffuse. Without radiation. Patient is CT yesterday without contrast and today had an MRI which I was able to review the report of. This revealed cortical enhancement and restricted diffusion in the left temporal occipital lobes. A smaller area is seen in the left frontal and parietal lobes. Very small punctate hemorrhage in the left posterior parietal lobe. Dr. Mayorga/neurosurgery is contacted. Medicine oncology was consulted. We are asked to admit the patient. Patient received 4 mg dexamethasone IV is currently on levetiracetam 500 mill grams IV twice a day. Patient currently awake and alert with only significant neurological abnormality on examination abnormal finger to nose bilaterally. 08/27/17: Patient lying in bed no acute distress. Slightly slurred speech, mild left facial droop, no other focal deficits. Discussed with Dr. Mayorga. He requested lumbar puncture which are performed CSF is clear. Opening pressure is 24. Cytology and further studies requested Subjective 08/28 -worsening expressive aphasia, slurred speech today. Left facial droop is more pronounced. Pronator Drift is present currently bilaterally. Unable to do finger to nose bilaterally. Tolerated diet. Repeat CT brain today revealed no changes Objective Vital Signs Date Time Temp Pulse Resp B/P (MAP) Pulse Ox O2 Delivery O2 Flow Rate FiO2 08/28/17 16:00 98 08/28/17 16:00 98.4 16 161/72 (101) 95 08/28/17 08:06 21 08/28/17 08:00 Room Air Result Diagram: 08/27/17 0544 08/27/17 0544 Other Results Microbiology Date/Time Source Procedure Growth Status 08/27/17 11:21 Cerebral Spinal Fluid Lumbar Puncture Fungal Smear - Final NO FUNGAL ELEMENTS SEEN. Resulted 08/27/17 11:21 Cerebral Spinal Fluid Lumbar Puncture Fungal Culture Pending Resulted Imaging Last Impressions Head CT 08/28/17 0000 Signed Impressions: Service Date/Time: Monday, August 28, 2017 15:34 - CONCLUSION: 1. Multiple areas of decreased density in the left cerebral hemisphere which may reflect vasogenic edema associated with metastatic disease or infarction possibly embolic. Contrast enhanced MRI is recommended. Galen Melgar MD Chest CT 08/28/17 0000 Signed Impressions: Service Date/Time: Monday, August 28, 2017 15:38 - CONCLUSION: 1. No evidence of acute thoracic abnormality. No masses are identified. No evidence of metastatic disease. Galen Melgar MD Abdomen/Pelvis CT 08/28/17 0000 Signed Impressions: Service Date/Time: Monday, August 28, 2017 15:38 - CONCLUSION: 1. No evidence of acute abdominal or pelvic process. No masses are identified. 2. Diverticulosis without evidence of diverticulitis. Galen Melgar MD Chest X-Ray 08/27/17 0000 Signed Impressions: Service Date/Time: Sunday, August 27, 2017 04:12 - CONCLUSION: No acute cardiopulmonary disease identified. Rajan Holcomb MD Objective Remarks GENERAL: 72-year-old female currently resting in bed in no acute distress SKIN: Warm and dry. HEAD: Atraumatic. Normocephalic. EYES: Pupils equal and round. No scleral icterus. No injection or drainage. ENT: No nasal bleeding or discharge. Mucous membranes pink and moist. NECK: Trachea midline. No JVD. CARDIOVASCULAR: Regular rate and rhythm. S1, S2. No S4. Without murmur RESPIRATORY: No accessory muscle use. Clear to auscultation. Breath sounds equal bilaterally. GASTROINTESTINAL: Abdomen soft, non-tender, nondistended. Active bowel sounds appreciated. Positive Pfannenstiel scar in abdomen. MUSCULOSKELETAL: Extremities without noted in peripheral edema. No obvious deformities. NEUROLOGICAL: Awake and alert. Cranial nerves II through XII grossly intact. Bilateral pronator drift. Right facial droop. Strength 4-5 bilateral upper extremity's. 5 out of 5 bilateral lower extremities. Abnormal finger-nose bilateral. Expressive aphasia Urinary Catheter: No Assessment to: Continue Vascular Central Line Catheter: No Assessment to: Continue A/P Assessment and Plan Neuro/Psych: Left frontal parietal/temporal occipital lobe vasogenic edema/masses - differential includes metastatic disease, lymphoproliferative, infectious versus vascular Small punctate hemorrhage left posterior parietal lobe Elevated IOC MRI brain 08/26/2017 revealed vasogenic edema associated with cortical has been restricted diffusion in the left temporal occipital. Small cortical-based areas of enhancement seen in the left frontal and parietal lobes. Very small punctate hemorrhage in the left posteroparietal lobe. Currently on dexamethasone 4 mg IV every 6 hours and levetiracetam 500 mill grams IV twice a day Seizure precautions Neurosurgery consultation - Dr. Mukesh BERRY performed -opening pressure 24, cytology and routine studies pending. Glucose 89. Protein elevated 54. Oncology consultation-Dr. pyle Continue latanoprost .005% 1 drop each eye at night CT brain today essentially stable. Will check MRI brain with and without contrast and with MRA brain and neck CV: Hypertension Dyslipidemia Continue nifedipine 30 mg by mouth daily/home medication As needed labetalol 10 mg every hour/hydralazine 10 mg every hour to keep systolic blood pressure less than 160 Currently not on lipid-lowering agents On normal saline at 84 cc an hour Resp: Nasal cannula if indicated for saturations greater than equal to 92% Incentive spirometry while awake Chest x-ray for a.m. ordered GI: Advance diet per speech therapy Pantoprazole 40 mg daily for GI prophylaxis Docusate sodium/senna 1 tablet twice a day for bowel regimen : No indication for Guerrero catheter Endo: Hypothyroidism History of parathyroidectomy 2009 Continue levothyroxine 25 mcg by mouth daily. 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 Pyle ID: Monitor for infection MSK: Osteoarthritis Continue cholecalciferol 1000 units daily PT/OT evaluate and treat FEN: Access - Utilize peripheral IV. Central line if indicated Prophylaxis - GI -pantoprazole 40 mg by mouth daily - DVT - SCDs/holding pharmacological prophylaxis the brain/small punctuate left posteroparietal lobe hemorrhage. Level II follow-up Prudencio Arthur MD Aug 28, 2017 18:24
[2017-08-28] MEDS ORDERED: GADODIAMIDE PF 287 MG/ML 20 ML VIAL (for RAD MRI) IVCONTRAST ONE (20:27)
--- NOTE | 2017-08-28 20:36 | RADRPT ---
EXAM DATE/TIME: 08/28/2017 20:12 [facility] COMPARISON: CT BRAIN W/O CONTRAST, August 28, 2017, 15:34. INDICATIONS : CVA. MEDICAL HISTORY : Hypertension. Carcinoma, breast. SURGICAL HISTORY : Mastectomy, bilateral. Hysterectomy. Thyroidectomy. ENCOUNTER: Initial ACUITY: 3 day PAIN SCORE: 0/10 LOCATION: cranial Please note a normal MRA of the brain does not entirely exclude the possibility of a small aneurysm, nor the possibility of distal intracranial vessel disease. TECHNIQUE: 3D time of flight MRA was performed. Source images, multiplanar STS MIP, and 3D volume MIP reconstru ctions were reviewed. FINDINGS: There is excellent visualization of the major intracranial arteries out to the second-order branch ve ssels. Markedly decreased flow is identified in the left middle cerebral artery. There is high grade stenosis with possible visual field defect in the M1 segment of the left MCA. Markedly diminished margo w is identified in the left MCA branches. The right cerebral circulation the vertebrobasilar circulation are intact without significant stenoti c or occlusive disease. There is no evidence of focal aneurysm. CONCLUSION: 1. Markedly restricted flow in the left middle cerebral artery with high-grade stenosis and possible intraluminal filling defect in the M1 segment. 2. Intact right cerebral and vertebral basilar circulation. Ladarius Perez MD on August 28, 2017 at 20:29 Board Certified Radiologist. This report was verified electronically.
--- NOTE | 2017-08-28 20:50 | RADRPT ---
EXAM DATE/TIME: 08/28/2017 20:12 [facility] COMPARISON: No previous studies available for comparison. INDICATIONS : Confusion. CONTRAST: 16 cc Omniscan (gadodiamide) IV MEDICAL HISTORY : Hypertension. Carcinoma, breast. SURGICAL HISTORY : Mastectomy, bilateral. Hysterectomy. Thyroidectomy. ENCOUNTER: Initial ACUITY: 3 day PAIN SCORE: 0/10 LOCATION: cranial TECHNIQUE: Multiplanar, multisequence MRI of the brain was performed both prior to and following the administrat ion of paramagnetic contrast. FINDINGS: Prominent areas of T2 hyperintensity with restricted diffusion are identified in the left frontal, le ft temporal and left parietal lobes. Magnetic susceptibility weighted imaging demonstrates small conchita chial hemorrhage in the left frontal and parietal lobes. Gyriform enhancement is identified in the le ft temporal lobe. There are no discrete nodular enhancing lesions with surrounding edema. The right cerebral hemisphere, brainstem and cerebellum appear normal. CONCLUSION: Abnormal T2 hyperintensity with restricted diffusion in the left cerebral hemisphere as described abo ve characteristic of acute to subacute cerebral infarct. Small foci of magnetic susceptibility in the left frontal and parietal lobes characteristic of minima l petechial hemorrhage. No conclusive findings of metastatic disease. Ladarius Perez MD on August 28, 2017 at 20:42 Board Certified Radiologist. This report was verified electronically.
--- NOTE | 2017-08-28 20:55 | RADRPT ---
EXAM DATE/TIME: 08/28/2017 20:12 [facility] COMPARISON: No previous studies available for comparison. INDICATIONS : Altered mental status. CONTRAST: 16 cc Omniscan (gadodiamide) IV MEDICAL HISTORY : Hypertension. Carcinoma, breast. SURGICAL HISTORY : Thyroidectomy. Mastectomy, bilateral. Hysterectomy. ENCOUNTER: Initial ACUITY: 3 day PAIN SCORE: 0/10 LOCATION: cranial Percent stenosis is calculated using the diameter of the stenotic region over the diameter of the nor mal distal internal carotid artery. TECHNIQUE: Bolus infused MRA of the extracranial circulation was performed using a neurovascular coil. Post pro cessing was performed including rotating subvolume maximum intensity projections of each carotid mike ry, rotating full volume maximum intensity projections of both carotid arteries, sagittal and coronal sliding thin slab reformations of each carotid artery, and left oblique sliding thin slab reformatio n through the aortic arch to include the origin of the arch branch vessels. FINDINGS: AORTIC ARCH: There is a three vessel origin of the great vessels from the aorta. No evidence of ostial narrowing. RIGHT CAROTID: The common carotid artery is intact. The carotid bulb has a normal configuration without ulceration or narrowing. The internal carotid artery lumen is smooth without stenosis. The external carotid ar fortino is intact. LEFT CAROTID: The common carotid artery is intact. The carotid bulb has a normal configuration without ulceration or narrowing. The internal carotid artery lumen is smooth without stenosis. The external carotid ar fortino is intact. VERTEBRALS: The left vertebral artery is dominant. The right vertebral artery is small and terminates in PICA. CONCLUSION: No evidence of significant atherosclerotic vascular disease or hemodynamically significant stenotic o r occlusive lesions. Dominant left vertebral. Small right vertebral terminating in PICA Ladarius Perez MD on August 28, 2017 at 20:51 Board Certified Radiologist. This report was verified electronically.
[2017-08-28] MEDS ORDERED: ASPIRIN 300 MG SUPP RECTAL ONE (21:15)
[2017-08-28] MEDS ORDERED: SODIUM CHLORIDE 0.9% FLUSH 10 ML FLUSH IV FLUSH PRN (21:15)
[2017-08-28] MEDS: LATANOPROST 0.005% OPHT SOLN 2.5 ML BTL EACH EYE SCH (21:43)
[2017-08-28] MEDS: SODIUM CHLOR 0.9% 1000 ML INJ 1,000 ML IV SCH (21:44)
[2017-08-29] VITALS (14 sets, daily range): BP systolic 157–175; BP diastolic 59–79; PULSE 48–67; RESP 17–21; TEMP 98.1–98.6; O2SAT 93–98
[2017-08-29] MEDS: CHLORHEXIDINE GLUCONATE 2 % 1 PACK (2 CLOTHS) TOP SCH (04:00)
[2017-08-29 05:34] LABS: AUTOMATED NEUTROPHIL # 10.1 TH/MM3 (1.8-7.7); BASOPHIL % 0.1 % (0.0-2.0); HEMATOCRIT 30.4 % (35.0-46.0); HEMOGLOBIN 10.4 GM/DL (11.6-15.3); LYMPH % 5.6 % (9.0-44.0); LYMPHOCYTE # 0.6 TH/MM3 (1.0-4.8); MEAN CELL VOLUME 87.8 FL (80.0-100.0); MEAN CORPUSCULAR HGB CONC 34.2 % (32.0-36.0); MEAN PLATELET VOLUME 7.6 FL (7.0-11.0); MONO % 2.7 % (0.0-8.0); MONOCYTE # 0.3 TH/MM3 (0-0.9); NEUT % 91.6 % (16.0-70.0); PLATELET COUNT 289 TH/MM3 (150-450); RED BLOOD COUNT 3.46 MIL/MM3 (4.00-5.30); RED CELL DISTRIBUTION WIDTH 15.1 % (11.6-17.2); WHITE BLOOD COUNT 11.1 TH/MM3 (4.0-11.0)
[2017-08-29] MEDS: DEXAMETHASONE SOD PHOS 4 MG/ML VIAL IV PUSH SCH ×4 (05:58→23:12)
[2017-08-29] MEDS: LEVOTHYROXINE SODIUM 25 MCG TAB PO SCH (05:58)
[2017-08-29 06:15] LABS: ALBUMIN 3.1 GM/DL (3.4-5.0); ALKALINE PHOSPHATASE 67 U/L (45-117); ALT (GPT) 15 U/L (10-53); AST (GOT) 9 U/L (15-37); BLOOD UREA NITROGEN 27 MG/DL (7-18); CALCIUM 8.3 MG/DL (8.5-10.1); CHLORIDE 109 MEQ/L (98-107); CHOLESTEROL 201 MG/DL (120-200); CHOLESTEROL/ HDL RATIO 4.24 RATIO; CREATININE 0.89 MG/DL (0.50-1.00); GLOMERULAR FILTRATION RATE 63 ML/MIN (>89); GLUCOSE,RANDOM 161 MG/DL (74-106); HDL CHOLESTEROL 47.4 MG/DL (40.0-60.0); LDL CHOLESTEROL 141 MG/DL (0-99); MAGNESIUM 2.1 MG/DL (1.5-2.5); PHOSPHORUS 4.2 MG/DL (2.5-4.9); SODIUM (NA) 142 MEQ/L (136-145); TOTAL BILIRUBIN ADULT 0.3 MG/DL (0.2-1.0); TOTAL PROTEIN 6.3 GM/DL (6.4-8.2); TRIGLYCERIDES 63 MG/DL (42-150)
[2017-08-29] MEDS: SODIUM CHLOR 0.9% 1000 ML INJ 1,000 ML IV SCH (06:29)
--- NOTE | 2017-08-29 07:12 | HHI.CCPN ---
Subjective Remarks/Hospital Course This is a 72-year-old female. Date of admission 08/26/2017. 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 She has a history of hypercalcemia status post partial parathyroidectomy. Patient presents to [facility] as a direct admit from doctor's office after an abnormal MRI. Patient has been experiencing headaches/occipitally based without vision changes for the past month. She has had gait imbalance disorder. She denies any seizure activity. She has not followed. She complains of headache as a 3 out of 10. Diffuse. Without radiation. Patient is CT yesterday without contrast and today had an MRI which I was able to review the report of. This revealed cortical enhancement and restricted diffusion in the left temporal occipital lobes. A smaller area is seen in the left frontal and parietal lobes. Very small punctate hemorrhage in the left posterior parietal lobe. Dr. Mayorga/neurosurgery is contacted. Medicine oncology was consulted. We are asked to admit the patient. Patient received 4 mg dexamethasone IV is currently on levetiracetam 500 mill grams IV twice a day. Patient currently awake and alert with only significant neurological abnormality on examination abnormal finger to nose bilaterally. 08/27 - Patient lying in bed no acute distress. Slightly slurred speech, mild left facial droop, no other focal deficits. Discussed with Dr. Mayorga. He requested lumbar puncture which are performed CSF is clear. Opening pressure is 24. Cytology and further studies requested 08/28 -worsening expressive aphasia, slurred speech today. Left facial droop is more pronounced. Pronator Drift is present currently bilaterally. Unable to do finger to nose bilaterally. Tolerated diet. Repeat CT brain today revealed no changes Subjective 08/29: Remains on room air. Discussed with Dr. Victoria overnight. Started on aspirin. Head of bed at 0. Neurologically appears stabilized. Pronator drift slightly improved. Able to do finger to nose inconsistently today. Yesterday unable to perform. Allowing passive hypertension currently. Objective Vital Signs Date Time Temp Pulse Resp B/P (MAP) Pulse Ox O2 Delivery O2 Flow Rate FiO2 08/29/17 06:29 61 08/29/17 04:11 98.5 20 157/59 (91) 94 08/28/17 19:54 Room Air 08/28/17 19:54 21 Intake and Output 1/8/18 1/8/18 1/9/18 08:00 16:00 00:00 Intake Total 637 ml Output Total 300 ml Balance 337 ml Result Diagram: 08/29/17 0511 08/29/17 0511 Other Results Microbiology Date/Time Source Procedure Growth Status 08/28/17 21:30 Blood Peripheral Aerobic Blood Culture Pending Received 08/28/17 21:30 Blood Peripheral Anaerobic Blood Culture Pending Received 08/27/17 11:21 Cerebral Spinal Fluid Lumbar Puncture Fungal Smear - Final NO FUNGAL ELEMENTS SEEN. Resulted 08/27/17 11:21 Cerebral Spinal Fluid Lumbar Puncture Fungal Culture Pending Resulted 08/28/17 18:44 Nasal Aspirate Influenza Types A,B Antigen (IRENE) - Final NEGATIVE FOR FLU A AND B ANTIGEN.... Complete Imaging Last Impressions Neck Magnetic Resonance Angiography 08/28/17 0000 Signed Impressions: Service Date/Time: Monday, August 28, 2017 20:12 - CONCLUSION: No evidence of significant atherosclerotic vascular disease or hemodynamically significant stenotic or occlusive lesions. Dominant left vertebral. Small right vertebral terminating in PICA Ladarius Perez MD Head Magnetic Resonance Angiography 08/28/17 0000 Signed Impressions: Service Date/Time: Monday, August 28, 2017 20:12 - CONCLUSION: 1. Markedly restricted flow in the left middle cerebral artery with high-grade stenosis and possible intraluminal filling defect in the M1 segment. 2. Intact right cerebral and vertebral basilar circulation. Ladarius Perez MD Head CT 08/28/17 0000 Signed Impressions: Service Date/Time: Monday, August 28, 2017 15:34 - CONCLUSION: 1. Multiple areas of decreased density in the left cerebral hemisphere which may reflect vasogenic edema associated with metastatic disease or infarction possibly embolic. Contrast enhanced MRI is recommended. Galen Melgar MD Chest CT 08/28/17 0000 Signed Impressions: Service Date/Time: Monday, August 28, 2017 15:38 - CONCLUSION: 1. No evidence of acute thoracic abnormality. No masses are identified. No evidence of metastatic disease. Galen Melgar MD Brain MRI 08/28/17 0000 Signed Impressions: Service Date/Time: Monday, August 28, 2017 20:12 - CONCLUSION: Abnormal T2 hyperintensity with restricted diffusion in the left cerebral hemisphere as described above characteristic of acute to subacute cerebral infarct. Small foci of magnetic susceptibility in the left frontal and parietal lobes characteristic of minimal petechial hemorrhage. No conclusive findings of metastatic disease. Ladarius Perez MD Abdomen/Pelvis CT 08/28/17 0000 Signed Impressions: Service Date/Time: Monday, August 28, 2017 15:38 - CONCLUSION: 1. No evidence of acute abdominal or pelvic process. No masses are identified. 2. Diverticulosis without evidence of diverticulitis. Galen Melgar MD Chest X-Ray 08/27/17 0000 Signed Impressions: Service Date/Time: Sunday, August 27, 2017 04:12 - CONCLUSION: No acute cardiopulmonary disease identified. Rajan Holcomb MD Objective Remarks GENERAL: 72-year-old female currently resting in bed at 0 in no acute distress SKIN: Warm and dry. HEAD: Atraumatic. Normocephalic. EYES: Pupils equal and round. No scleral icterus. No injection or drainage. ENT: No nasal bleeding or discharge. Mucous membranes pink and moist. NECK: Trachea midline. No JVD. CARDIOVASCULAR: Regular rate and rhythm. S1, S2. No S4. Without murmur RESPIRATORY: No accessory muscle use. Clear to auscultation. Breath sounds equal bilaterally. GASTROINTESTINAL: Abdomen soft, non-tender, nondistended. Active bowel sounds appreciated. Positive Pfannenstiel scar in abdomen. MUSCULOSKELETAL: Extremities without significant peripheral edema. No obvious deformities. NEUROLOGICAL: Awake and alert. Bilateral pronator drift. Right facial droop. Strength 4-5 bilateral upper extremities. 5 out of 5 bilateral lower extremities. Abnormal finger-nose bilateral. Expressive aphasia A/P Assessment and Plan Neuro/Psych: Left frontal parietal/temporal occipital lobe vasogenic edema/masses - differential includes metastatic disease, lymphoproliferative, infectious versus vascular CVA Small punctate hemorrhage left posterior parietal lobe Elevated IOC MRI brain 09/07 revealed left frontal/temporal/parietal petechial hyperdensity with diminished effusion likely indicative of acute to subacute CVA. Left frontal/parietal petechial hemorrhage. Gyriform enhancement of the left temporal lobe. MRA brain 08/28 - decreased blood flow left MCA specifically M1 segment MRA neck 08/28 -dominant left vertebral. Right vertebral small. Currently on aspirin 300 mg per rectum daily. Discussed with Dr. Victoria/neurology overnight. Head of bed flat at 0. Aspirin as above. No systemic anticoagulation due to risk of bleeding with petechial hemorrhage. Consultation placed to further evaluate. MRI brain 08/26/2017 revealed vasogenic edema associated with cortical has been restricted diffusion in the left temporal occipital. Small cortical-based areas of enhancement seen in the left frontal and parietal lobes. Very small punctate hemorrhage in the left posteroparietal lobe. Currently on dexamethasone 4 mg IV every 6 hours and levetiracetam 500 mill grams IV twice a day Seizure precautions Neurosurgery consultation - Dr. Mukesh BERRY performed -opening pressure 24, cytology and routine studies pending. Glucose 89. Protein elevated 59. Oncology consultation-Dr. Pyle Continue latanoprost .005% 1 drop each eye at night CV: Hypertension Dyslipidemia Last night held nifedipine 30 mg by mouth daily/home medication to allow permissive hypertension As needed labetalol 10 mg every hour/hydralazine 10 mg every hour to keep systolic blood pressure less than 170 Total cholesterol 201. LDL 141. Started on pravastatin 40 mg daily On normal saline at 50 cc an hour Resp: Nasal cannula if indicated for saturations greater than equal to 92% Incentive spirometry while awake CT thorax 08/28 reveals no signs of metastatic disease. No acute cardiopulmonary findings GI: Diverticulosis Advance diet per speech therapy Pantoprazole 40 mg daily for GI prophylaxis Docusate sodium/senna 1 tablet twice a day for bowel regimen CT abdomen/pelvis revealed diverticulosis : No indication for Guerrero catheter Endo: Hypothyroidism History of parathyroidectomy 2009 Continue levothyroxine 25 mcg by mouth daily. 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 Pyle Cytology from CSF pending ID: Monitor for infection Blood cultures 2 08/28 pending UA 06/27 pending CSF 06/27 pending HSV 1/2 pending Influenza negative MSK: Osteoarthritis Continue cholecalciferol 1000 units daily PT/OT evaluate and treat FEN: Replace electrolytes as clinically indicated Access - Utilize peripheral IV. Central line if indicated Prophylaxis - GI -pantoprazole 40 mg by mouth daily - DVT - SCDs/holding pharmacological prophylaxis the brain/small punctuate left posteroparietal lobe hemorrhage. Level II follow-up Prudencio Arthur MD Aug 29, 2017 07:12
[2017-08-29] MEDS ORDERED: POTASSIUM CHLORIDE 10 MEQ CONTROLLED RELEASE TAB PO ONE (07:15)
[2017-08-29 07:25] LABS: BILIRUBIN, URINE NEG (NEG); BLOOD, URINE NEG (NEG); GLUCOSE,URINE NEG (NEG); KETONE, URINE NEG (NEG); MUCUS URINE FEW /lpf (OCC); NITRITE,URINE NEG (NEG); SQUAMOUS EPITHELIAL CELL URINE 1 /hpf (0-5); URINE COLOR YELLOW (YELLW/STRAW); URINE LEUKOCYTE ESTERASE NEG (NEG)
[2017-08-29] MEDS ORDERED: ASPIRIN 300 MG SUPP RECTAL SCH (09:00)
--- NOTE | 2017-08-29 09:14 | PD.ONC.PN ---
Subjective Subjective Remarks This note reflects patient encounter at 8:15 AM on 08/29/2017. Patient seen and examined, vital signs, labs and medications reviewed. CT scan of the chest, abdomen and pelvis reviewed as well as MRI of the brain. Subjectively; Ms. Holcomb denies worsening symptoms. Per the nursing staff the patient continues to have significant expressive aphasia. Patient's [id number] is at bedside to discuss findings of the MRI scan and CT imaging of the brain. Objective Data Date Time Temp Pulse Resp B/P (MAP) Pulse Ox O2 Delivery O2 Flow Rate FiO2 08/29/17 07:39 98 21 08/29/17 06:29 61 08/29/17 04:11 64 08/29/17 04:11 98.5 64 20 157/59 (91) 94 08/29/17 02:23 53 08/29/17 00:10 98.5 65 17 158/72 (100) 93 08/29/17 00:10 66 08/28/17 22:00 74 08/28/17 20:00 98.4 80 18 159/74 (102) 94 08/28/17 20:00 80 08/28/17 19:54 94 Room Air 08/28/17 19:54 94 21 08/28/17 18:26 16 08/28/17 16:00 98 08/28/17 16:00 98.4 98 16 161/72 (101) 95 08/28/17 12:00 98.0 101 18 150/67 (94) 93 08/28/17 12:00 101 08/29/17 08/29/17 08/29/17 07:00 15:00 23:00 Intake Total 637 ml Output Total 300 ml Balance 337 ml Result Diagram: 08/29/17 0511 08/29/17 0511 Laboratory Results Laboratory Tests Test 08/28/17 21:20 08/29/17 05:11 08/29/17 06:15 Erythrocyte Sedimentation Rate 25 mm/hr C-Reactive Protein LESS THAN 0.29 MG/DL White Blood Count 11.1 TH/MM3 Red Blood Count 3.46 MIL/MM3 Hemoglobin 10.4 GM/DL Hematocrit 30.4 % Mean Corpuscular Volume 87.8 FL Mean Corpuscular Hemoglobin 30.0 PG Mean Corpuscular Hemoglobin Concent 34.2 % Red Cell Distribution Width 15.1 % Platelet Count 289 TH/MM3 Mean Platelet Volume 7.6 FL Neutrophils (%) (Auto) 91.6 % Lymphocytes (%) (Auto) 5.6 % Monocytes (%) (Auto) 2.7 % Eosinophils (%) (Auto) 0.0 % Basophils (%) (Auto) 0.1 % Neutrophils # (Auto) 10.1 TH/MM3 Lymphocytes # (Auto) 0.6 TH/MM3 Monocytes # (Auto) 0.3 TH/MM3 Eosinophils # (Auto) 0.0 TH/MM3 Basophils # (Auto) 0.0 TH/MM3 CBC Comment DIFF FINAL Differential Comment Blood Urea Nitrogen 27 MG/DL Creatinine 0.89 MG/DL Random Glucose 161 MG/DL Total Protein 6.3 GM/DL Albumin 3.1 GM/DL Calcium Level 8.3 MG/DL Phosphorus Level 4.2 MG/DL Magnesium Level 2.1 MG/DL Alkaline Phosphatase 67 U/L Aspartate Amino Transf (AST/SGOT) 9 U/L Alanine Aminotransferase (ALT/SGPT) 15 U/L Total Bilirubin 0.3 MG/DL Sodium Level 142 MEQ/L Potassium Level 3.6 MEQ/L Chloride Level 109 MEQ/L Carbon Dioxide Level 23.0 MEQ/L Anion Gap 10 MEQ/L Estimat Glomerular Filtration Rate 63 ML/MIN Total Creatine Kinase 51 U/L Triglycerides Level 63 MG/DL Cholesterol Level 201 MG/DL LDL Cholesterol 141 MG/DL HDL Cholesterol 47.4 MG/DL Cholesterol/HDL Ratio 4.24 RATIO Urine Color YELLOW Urine Turbidity CLEAR Urine pH 6.0 Urine Specific [place] 1.031 Urine Protein TRACE mg/dL Urine Glucose (UA) NEG mg/dL Urine Ketones NEG mg/dL Urine Occult Blood NEG Urine Nitrite NEG Urine Bilirubin NEG Urine Urobilinogen LESS THAN 2.0 MG/DL Urine Leukocyte Esterase NEG Urine RBC LESS THAN 1 /hpf Urine WBC 1 /hpf Urine Squamous Epithelial Cells 1 /hpf Urine Mucus FEW /lpf Microscopic Urinalysis Comment CULT NOT INDICATED Culture Results Microbiology Date/Time Source Procedure Growth Status 08/28/17 21:30 Blood Peripheral Aerobic Blood Culture Pending Received 08/28/17 21:30 Blood Peripheral Anaerobic Blood Culture Pending Received 08/28/17 21:20 Blood Peripheral Aerobic Blood Culture Pending Received 08/28/17 21:20 Blood Peripheral Anaerobic Blood Culture Pending Received 08/28/17 21:20 Blood Peripheral Blood Fungal Culture Pending Received 08/28/17 21:20 Blood Peripheral Blood Fungal Culture Pending Received 08/27/17 11:21 Cerebral Spinal Fluid Lumbar Puncture Fungal Smear - Final NO FUNGAL ELEMENTS SEEN. Resulted 08/27/17 11:21 Cerebral Spinal Fluid Lumbar Puncture Fungal Culture Pending Resulted 08/27/17 11:21 Cerebral Spinal Fluid Lumbar Puncture Acid Fast Stain Pending Received 08/27/17 11:21 Cerebral Spinal Fluid Lumbar Puncture Mycobacterial Culture Pending Received 08/27/17 11:21 Cerebral Spinal Fluid Lumbar Puncture Gram Stain - Final Complete 08/27/17 11:21 Cerebral Spinal Fluid Lumbar Puncture CSF Culture - Final No growth. Complete 08/28/17 18:44 Nasal Aspirate Influenza Types A,B Antigen (IRENE) - Final NEGATIVE FOR FLU A AND B ANTIGEN.... Complete Administered Medications Medications (Trade) Dose Ordered Sig/Kristal Route PRN Reason Start Time Stop Time Status Last Admin Dose Admin Dexamethasone Sodium Phosphate (Decadron Inj) 4 mg Q6HR IV PUSH 08/27/17 00:00 08/29/17 05:58 Sodium Chloride 1,000 ml @ 50 mls/hr Q20H IV 08/26/17 18:54 08/28/17 21:44 Sodium Chloride (NS Flush) 2 ml BID IV FLUSH 08/26/17 21:00 08/28/17 21:39 Acetaminophen (Tylenol) 650 mg Q6H PRN PO FOR FEVER >101F 08/26/17 19:00 08/28/17 17:26 Acetaminophen/ Hydrocodone Bitart ([place] 5-325 Mg) 1 tab Q4H PRN PO PAIN SCALE 1 TO 5 08/26/17 19:00 08/28/17 03:44 Morphine Sulfate (Morphine Inj) 2 mg Q3H PRN IV PUSH PAIN SCALE 6 TO 10 08/26/17 19:15 08/27/17 12:09 Ondansetron HCl (Zofran Inj) 4 mg Q6H PRN IV PUSH NAUSEA OR VOMITING 08/26/17 19:00 08/26/17 22:15 Senna/Docusate Sodium (Renita-Colace) 1 tab BID PO 08/26/17 21:00 08/28/17 21:38 Cholecalciferol (Vitamin D3) 1,000 units DAILY PO 08/27/17 09:00 08/28/17 08:17 Latanoprost (Xalatan 0.005% Opth Soln) 1 drop HS EACH EYE 08/26/17 21:00 08/28/17 21:43 Levothyroxine Sodium (Synthroid) 25 mcg DAILY@0600 PO 08/27/17 06:00 08/29/17 05:58 Labetalol HCl (Trandate Inj) 10 mg Q1HR PRN IV PUSH SBP>170, DBP>90, HR>65 08/26/17 19:00 08/28/17 09:30 Hydralazine HCl (Apresoline Inj) 10 mg Q1HR PRN IV PUSH SBP>170, DBP>90 08/26/17 19:00 08/28/17 09:06 Insulin Human Regular (NovoLIN R SUPPLEMENTAL SCALE) 1 ACHS SLIDING SCALE SQ 08/26/17 21:00 08/28/17 21:53 Levetriacetam 500 mg/Sodium Chloride 105 ml @ 420 mls/hr Q12HR IV 08/26/17 21:00 08/28/17 21:38 Pantoprazole Sodium (Protonix) 40 mg DAILY PO 08/27/17 09:00 08/28/17 08:17 Nifedipine (Procardia Xl) 30 mg DAILY@2100 PO 08/27/17 21:00 Future Hold 08/27/17 20:02 Objective Remarks GENERAL: Pleasant elderly female, sitting up in chair next to bed in hospital gown. Half eaten tray of breakfast food in front of her. She appears comfortable and in nad. SKIN: Warm and dry. HEAD: Normocephalic. EYES: No injection or drainage. NECK: Supple, trachea midline. CARDIOVASCULAR: Regular rate and rhythm RESPIRATORY: Breath sounds equal bilaterally. No accessory muscle use. GASTROINTESTINAL: Abdomen soft, non-tender, nondistended. EXTREMITIES: No cyanosis NEUROLOGICAL: awake, alert. able to move all extremities. +expressive aphasia. 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 then followup and observation. --relapsed disease in January of 2016 when she was found to have left breast well- differentiated ductal carcinoma. --On both occasions, her disease was strongly estrogen and progesterone receptor positive and [id number]. --has not been on systemic therapy, i.e., either cytotoxic or endocrine therapy for her breast carcinoma. --will need CT C/A/P for staging and to look for other possible primary lesion Assessment 72y/o female admitted with expressive aphasia x 3 weeks. MRI indicates multifocal hemorrhagic changes involving the left temporal and occipital lobes as well as deeper cortical and brain parenchymal matter. Stage I Papillary carcinoma involving the left breast diagnosed in 2010; ER/MA positive, HER-2 nonamplified. Stage I Invasive well-differentiated ductal carcinoma of the left breast diagnosed in January of 2016; ER/MA positive, HER-2 nonamplified. Glaucoma. Hypertension. Hypothyroidism. Parathyroid adenoma. h/o Lumpectomy with sentinel lymph node biopsy in 2010. Bilateral mastectomy and breast reconstruction in 2015. Parathyroid gland resection in 2009; parathyroid hyperplasia noted on pathology.. Plan 1. Previous history of breast carcinoma: CT scans chest abdomen and pelvis indicate no definite evidence of disease recurrence, MRI of the brain is inconclusive for metastatic disease burden. 2. Abnormal findings on MRI brain dated 08/26/2017 and subsequent scan performed on 08/28/2017: Await lumbar puncture cytology. I will defer to neurology and neurosurgery to help us determine whether these radiographic findings and clinical signs represent metastatic disease to the brain. Oncology will follow along with you. At this point it is uncertain whether an oncologic etiology is playing a role in her current neurologic issues. I did explain this to the patient and her [id number] at bedside. Bucky Pyle MD Aug 29, 2017 09:14
[2017-08-29] MEDS: PANTOPRAZOLE SOD 40 MG DELAYED RELEASE TAB PO SCH (09:31)
[2017-08-29] MEDS: levETIRAcetam INJ 500 MG in SODIUM CHLORIDE 0.9% INJ 100 ML IV SCH ×2 (09:32→20:47)
[2017-08-29] MEDS: CHOLECALCIFEROL (VIT D3) 1000 UNIT TAB PO SCH (09:32)
[2017-08-29] MEDS: DOCUSATE SODIUM 50 MG/SENNA 8.6 MG TAB PO SCH ×2 (09:32→20:48)
[2017-08-29] MEDS: INSULIN NovoLIN REGULAR SUPPLEMENTAL SCALE SQ SCH ×4 (09:33→21:00)
[2017-08-29] MEDS: SODIUM CHLORIDE 0.9% FLUSH 10 ML FLUSH IV FLUSH SCH ×4 (09:34→21:00)
--- NOTE | 2017-08-29 12:30 | ECHRPT ---
Indication: cva/tia CONCLUSIONS Normal left ventricular size. Mild mitral valve regurgitation. Normal left ventricular size. The left ventricular systolic function is normal with an estimated ejection fraction in the range of 60-65%. There is mild tricuspid valve regurgitation. The estimated pulmonary arterial pressure is 33.8 mmHg. BP: / HR: Rhythm: MEASUREMENTS (Male / Female) Normal Values Technical Quality:Technically difficult study 2D ECHO LV Diastolic Diameter PLAX 4.3 cm 4.2 - 5.9 / 3.9 - 5.3 cm LV Systolic Diameter PLAX 3.1 cm IVS Diastolic Thickness 1.4 cm 0.6 - 1.0 / 0.6 - 0.9 cm LVPW Diastolic Thickness 1.3 cm 0.6 - 1.0 / 0.6 - 0.9 cm LV Relative Wall Thickness 0.6 RV Internal Dim ED PLAX 2.7 cm M-MODE Aortic Root Diameter MM 2.8 cm LA Systolic Diameter MM 2.6 cm LA Ao Ratio MM 0.9 AV Cusp Separation MM 2.1 cm DOPPLER Mitral E Point Velocity 60.2 cm/s Mitral A Point Velocity 73.5 cm/s Mitral E to A Ratio 0.8 LV E' Lateral Velocity 8.0 cm/s Mitral E to LV E' Lateral Ratio 7.5 LV E' Septal Velocity 7.8 cm/s Mitral E to LV E' Septal Ratio 7.7 TR Peak Velocity 244.0 cm/s TR Peak Gradient 23.8 mmHg Right Atrial Pressure 10.0 mmHg Pulmonary Artery Systolic Pressu 33.8 mmHg Right Ventricular Systolic Press 33.8 mmHg FINDINGS LEFT VENTRICLE Normal left ventricular size. The left ventricular systolic function is normal with an estimated ejection fraction in the range of 60-65%. RIGHT VENTRICLE Normal right ventricular size and systolic function. LEFT ATRIUM The left atrial size is normal. RIGHT ATRIUM The right atrial size is normal. ATRIAL SEPTUM Normal atrial septal thickness without atrial level shunting by limited color doppler interrogation. AORTA The aortic root and proximal ascending aorta are normal in size on limited imaging. MITRAL VALVE Structurally normal mitral valve. Mild mitral valve regurgitation. AORTIC VALVE Trileaflet aortic valve. No aortic valve stenosis or regurgitation. TRICUSPID VALVE Structurally normal tricuspid valve. There is mild tricuspid valve regurgitation. The estimated pulmonary arterial pressure is 33.8 mmHg. PULMONARY VALVE No pulmonary valve regurgitation or stenosis. VESSELS The inferior vena cava is normal in size. PERICARDIUM No pericardial effusion. Bassem Sorenson MD, FACC (Electronically Signed) Final Date:29 August 2017 12:30
[2017-08-29] MEDS ORDERED: ACETAMINOPHEN 1000 MG/100 ML 100 ML IV ONE (12:45)
--- NOTE | 2017-08-29 14:41 | HHI.NSPN ---
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 She presented with expressive aphasia and was snt to [facility] from doctor's office after an abnormal MRI. Patient has been experiencing headaches/occipitally based without vision changes for the past month. She has had gait imbalance disorder. She denies any seizure activity. No tongue bitting. No incontinence of stool or urine. She complains of headache as a 3 out of 10. Diffuse. Without radiation. Patient is CT yesterday without contrast and today had an MRI which showed cortical enhancement and restricted diffusion in the left temporal occipital lobes. A smaller blister is seen in the left frontal and parietal lobes. A small punctate hemorrhage in the left posterior parietal lobe. Neurosurgical consultation was requested 08/29: pt was seen this morning during rounds, currently undergoing EEG testing. MRI Brain yesterday with acute infarcts. Labs, Micro, & Vital Signs Results Date Time Temp Pulse Resp B/P (MAP) Pulse Ox O2 Delivery O2 Flow Rate FiO2 08/29/17 07:39 98 21 08/29/17 06:29 61 08/29/17 04:11 64 08/29/17 04:11 98.5 64 20 157/59 (91) 94 08/29/17 02:23 53 08/29/17 00:10 98.5 65 17 158/72 (100) 93 08/29/17 00:10 66 08/28/17 22:00 74 08/28/17 20:00 98.4 80 18 159/74 (102) 94 08/28/17 20:00 80 08/28/17 19:54 94 Room Air 08/28/17 19:54 94 21 08/28/17 18:26 16 08/28/17 16:00 98 08/28/17 16:00 98.4 98 16 161/72 (101) 95 Constitutional Vital Signs Date Time Temp Pulse Resp B/P (MAP) Pulse Ox O2 Delivery O2 Flow Rate FiO2 08/29/17 07:39 98 21 08/29/17 06:29 61 08/29/17 04:11 64 08/29/17 04:11 98.5 64 20 157/59 (91) 94 08/29/17 02:23 53 08/29/17 00:10 98.5 65 17 158/72 (100) 93 08/29/17 00:10 66 08/28/17 22:00 74 08/28/17 20:00 98.4 80 18 159/74 (102) 94 08/28/17 20:00 80 08/28/17 19:54 94 Room Air 08/28/17 19:54 94 21 08/28/17 18:26 16 08/28/17 16:00 98 08/28/17 16:00 98.4 98 16 161/72 (101) 95 Physical Exam Currently obtaining EEG Medications Current Medications Current Medications Medications (Trade) Dose Ordered Sig/Kristal Route PRN Reason Start Time Stop Time Status Last Admin Dose Admin Dexamethasone Sodium Phosphate (Decadron Inj) 4 mg Q6HR IV PUSH 08/27/17 00:00 08/29/17 12:41 Sodium Chloride 1,000 ml @ 50 mls/hr Q20H IV 08/26/17 18:54 08/28/17 21:44 Sodium Chloride (NS Flush) 2 ml UNSCH PRN IV FLUSH FLUSH AFTER USING IV ACCESS 08/26/17 19:00 Sodium Chloride (NS Flush) 2 ml BID IV FLUSH 08/26/17 21:00 08/29/17 09:34 Acetaminophen (Tylenol) 650 mg Q6H PRN PO FOR FEVER >101F 08/26/17 19:00 08/28/17 17:26 Acetaminophen/ Hydrocodone Bitart ([place] 5-325 Mg) 1 tab Q4H PRN PO PAIN SCALE 1 TO 5 08/26/17 19:00 08/28/17 03:44 Morphine Sulfate (Morphine Inj) 2 mg Q3H PRN IV PUSH PAIN SCALE 6 TO 10 08/26/17 19:15 08/27/17 12:09 Ondansetron HCl (Zofran Inj) 4 mg Q6H PRN IV PUSH NAUSEA OR VOMITING 08/26/17 19:00 08/26/17 22:15 Albuterol Sulfate (Albuterol Neb) 2.5 mg Q2HR NEB PRN INH SOB/WHEEZING 08/26/17 19:00 Miscellaneous Information 1 Q361D XX 08/26/17 19:00 Chlorhexidine Gluconate (Chlorhexidine 2% Cloth) 3 pack Taper DAILY@04 TOP 08/27/17 04:00 08/23/18 03:59 Chlorhexidine Gluconate (Chlorhexidine 2% Cloth) 3 pack UNSCH PRN TOP HYGIENIC CARE 08/26/17 19:00 Senna/Docusate Sodium (Renita-Colace) 1 tab BID PO 08/26/17 21:00 08/29/17 09:32 Magnesium Hydroxide (Milk Of Magnesia Liq) 30 ml Q12H PRN PO Mild constipation 08/26/17 19:00 Sennosides (Senokot) 17.2 mg Q12H PRN PO Moderate constipation 08/26/17 19:00 Bisacodyl (Dulcolax Supp) 10 mg DAILY PRN RECTAL SEVERE CONSITIPATION 08/26/17 19:00 Lactulose (Lactulose Liq) 30 ml DAILY PRN PO SEVERE CONSITIPATION 08/26/17 19:00 Cholecalciferol (Vitamin D3) 1,000 units DAILY PO 08/27/17 09:00 08/29/17 09:32 Latanoprost (Xalatan 0.005% Opth Soln) 1 drop HS EACH EYE 08/26/17 21:00 08/28/17 21:43 Levothyroxine Sodium (Synthroid) 25 mcg DAILY@0600 PO 08/27/17 06:00 08/29/17 05:58 Labetalol HCl (Trandate Inj) 10 mg Q1HR PRN IV PUSH SBP>170, DBP>90, HR>65 08/26/17 19:00 08/28/17 09:30 Hydralazine HCl (Apresoline Inj) 10 mg Q1HR PRN IV PUSH SBP>170, DBP>90 08/26/17 19:00 08/28/17 09:06 Dextrose (D50w (Vial) Inj) 50 ml UNSCH PRN IV PUSH HYPOGLYCEMIA-SEE COMMENTS 08/26/17 19:00 Glucagon (Glucagon Inj) 1 mg UNSCH PRN OTHER HYPOGLYCEMIA-SEE COMMENTS 08/26/17 19:00 Insulin Human Regular (NovoLIN R SUPPLEMENTAL SCALE) 1 ACHS SLIDING SCALE SQ 08/26/17 21:00 08/29/17 12:42 Levetriacetam 500 mg/Sodium Chloride 105 ml @ 420 mls/hr Q12HR IV 08/26/17 21:00 08/29/17 09:32 Pantoprazole Sodium (Protonix) 40 mg DAILY PO 08/27/17 09:00 08/29/17 09:31 Nifedipine (Procardia Xl) 30 mg DAILY@2100 PO 08/27/17 21:00 Future Hold 08/27/17 20:02 Sodium Chloride (NS Flush) 2 ml BID IV FLUSH 08/29/17 09:00 08/29/17 09:34 Sodium Chloride (NS Flush) 2 ml UNSCH PRN IV FLUSH FLUSH AFTER USING IV ACCESS 08/28/17 21:15 Pravastatin Sodium (Pravachol) 40 mg HS PO 08/29/17 21:00 Aspirin (Aspirin Chew) 324 mg DAILY CHEW 08/29/17 21:00 Medical Decision Making MDM Remarks 72 y/o female abnormal brain lesion found on MRI 08/26/17 [facility], unknown etiology , however not typical of breast metastases, s/p lumbar puncture for CSF cytology worsened aphasia - acute infarct on MRI Brain with small petechial hemorrhage 08/28/17 Plan Plan Remarks Neurology consultation for acute CVA ok for ASA EEG now follow up LP cytology and cultures Karen Boles Aug 29, 2017 14:41
[2017-08-29] MEDS: ASPIRIN 81 MG CHEW TAB CHEW SCH (20:46)
[2017-08-29] MEDS: LATANOPROST 0.005% OPHT SOLN 2.5 ML BTL EACH EYE SCH (20:47)
[2017-08-29] MEDS: PRAVASTATIN SOD 40 MG TAB PO SCH (20:47)
--- NOTE | 2017-08-29 23:04 | MB ---
cc: SARAH PHILLIPS MD DATE OF CONSULTATION: 08/29/2017 REASON FOR CONSULTATION: Stroke. HISTORY OF PRESENT ILLNESS Ms. Holcomb is a 72-year-old female with past medical history of poorly- differentiated ductal cancer, papillary cancer of the breast with mucinous carcinoma, status post bilateral mastectomy with reconstruction and implants, history of hypertension, hyperlipidemia, hypothyroidism and hypercalcemia status post partial parathyroidectomy. The patient presented to [facility] as a direct admit from a doctor's office after an abnormal MRI was found. Reportedly the patient has been experiencing headaches without vision changes for the past month, with some gait disorder. No reported seizure activity. During the encounter the patient was comfortably in bed with her best friend, Sis, at the bedside. REVIEW OF SYSTEMS: A 12-point review of systems is negative except for what is stated in the HPI. PAST MEDICAL HISTORY 1. Hypertension. 2. Hyperlipidemia. 3. Hyperthyroidism. 4. Papillary intraductal mucinous breast carcinoma. PAST SURGICAL HISTORY 1. Partial thyroidectomy. 2. Hysterectomy. 3. Parathyroidectomy. 4. Left breast lumpectomy. 5. Bilateral mastectomy with reconstruction and implants. MEDICATIONS 1. Latanoprost. 2. Vitamin D3. 3. Nifedipine. 4. Levothyroxine. FAMILY HISTORY: Father with colon cancer, mother with [employer] lymphoma. SOCIAL HISTORY: Quit tobacco in her early 20s, no alcohol use or illicit drug use. PHYSICAL EXAMINATION: General: Awake, alert, poor historian due to dysphasia, pleasant, not in acute distress. HEENT: Atraumatic, normocephalic. Intact hearing. Intact vision. Neck: Supple. Trachea in the midline. No signs of meningeal irritation. Cardiovascular: Regular rate and rhythm. Respiratory: Clear to auscultation, no wheezes. Gastrointestinal: Soft abdomen, nontender Neurological: Awake, alert, expressive dysphasia with abnormal naming, abnormal comprehension, abnormal repetition. Right facial palsy. No nystagmus. No ptosis. The patient is right-handed, however, during the encounter there is preference to use the left upper extremity. Intact sensation throughout. [id number] is intact. No abnormal movements. Reflexes 1+ bilateral symmetrical. Plantars are bilaterally downgoing. Psychiatric: Cooperative, given her dysphasic symptoms, not agitated. No hallucinations, LABORATORY DATA White blood cells 11.1, hemoglobin 10.4, MCV 87.8, platelet 289, sodium 142, potassium 3.6, anion gap 23, BUN 27, creatinine 0.89, A1c 6, lactic acid 1.5, calcium 8.3, INR 1. CSF clear, RBC 5, glucose 89, protein 58.7, lactic acid 2.2. White blood cells zero. DIAGNOSTIC IMAGING - Head CT scan without contrast revealed multiple areas of decreased density in the left cerebral hemisphere which may reflect vasogenic edema associated with metastatic disease or infarction, possibly embolic. - Brain MRI with and without contrast revealed abnormal T2 hyperintensity with restricted diffusion at the left cerebral hemisphere characteristic of acute to subacute cerebral infarct, small foci of magnetic susceptibility in the left frontal and parietal lobes, characteristic of minimal petechial hemorrhage. No conclusive finding of metastatic disease. - Head MRA without contrast markedly restricted flow in the left MCA with high- grade stenosis and possible intraluminal filling defect of the M1 segment, intact right cerebral and vertebrobasilar circulation. - Neck MRA with contrast revealed no evidence of significant atherosclerotic vascular disease or hemodynamically significant stenotic or occlusive lesion, dominant left vertebral artery, small right vertebral artery terminating in PICA. ASSESSMENT/PLAN - The patient's neurologic assessment revealed receptive dysphasia with abnormal repetition, naming, comprehension, right facial palsy and right-sided hemiparesis with an MRI that revealed evidence of multiple restricted diffusion areas in the left frontal parietal lobe, unlikely to be related to metastatic lesions in the brain. In the SWI sequence there is punctate petechial hemorrhages in the posterior parietal lobe of the left side. - There is left MCA narrowing at the M1 segment likely thromboembolic in nature. I explained at length to the patient and the "best friend" who was at the bedside, the possible diagnosis and future prognosis of dysphagia that will need prolonged speech therapy. At this time there is no role of anticoagulation given the petechial hemorrhage. There is strong evidence that with high doses of antiplatelets and anticoagulants should be used with caution because of risk of extensive bleeding. - Possible etiological factors that I discussed with the patient and her friend would be patient with history of cancer may show evidence of a hypercoagulable status or another more likely etiology is paroxysmal atrial fibrillation. The patient needs telemonitoring and if no events are captured, event monitoring, Holter monitoring as an outpatient to capture possible paroxysmal atrial fibrillation episode. - Consider speech therapy, physical and occupational therapy consultations, recommendations are appreciated. -DVT prophylaxis. - Follow up on results of CSF cytology. Thank you for the opportunity to participate in the care of your patient. MD GEORGE Portillo/MELINA /9:18 PM /10:21 PM ELYSE
--- NOTE | 2017-08-29 23:30 | MG ---
cc: SARAH JAMIL MD Sex: F DATE OF [address] Arthur MEDICAL HISTORY Thyroid disease. Anxiety. Bilateral cataract. Hypertension. Lumpectomy. Gait. Hypercholesterinemia. Bilateral mastectomy. Breast cancer. Parathyroidectomy. Headache. Arthritis. MEDICATIONS 1. Aspirin. 2. Vitamin D3. 3. Protonix. 4. Synthroid. 5. Nifedipine. 6. Keppra DESCRIPTION The background activity is 8-9 Hz alpha superimposed by beta activity. During the recording there is some slowing on the left hemisphere. There is theta activity. Photic stimulation did not elicit a driving response. Hyperventilation was omitted. There were no electrographic seizures or epileptiform discharges noted during the recording. There is excessive movement artifact. INTERPRETATION This is an awake EEG. Mild slowing of the left side may indicate a structural lesion. There were no electrographic seizures or epileptiform discharges. Beta activity is a nonspecific finding that may be related to medication effect like benzos and barbiturates. Clinical correlation is recommended. Sarah Jamil MD RGO/MELINA /10:17 PM /11:07 PM MTDD
[2017-08-30] VITALS (14 sets, daily range): BP systolic 151–193; BP diastolic 69–130; PULSE 40–90; RESP 14–21; TEMP 97.6–98.7; O2SAT 93–99
[2017-08-30] MEDS: SODIUM CHLOR 0.9% 1000 ML INJ 1,000 ML IV SCH ×2 (02:04→08:00)
[2017-08-30] MEDS: CHLORHEXIDINE GLUCONATE 2 % 1 PACK (2 CLOTHS) TOP SCH (04:00)
[2017-08-30 05:33] LABS: HEMATOCRIT 32.4 % (35.0-46.0); HEMOGLOBIN 10.7 GM/DL (11.6-15.3); MEAN CELL VOLUME 87.2 FL (80.0-100.0); MEAN CORPUSCULAR HEMOGLOBIN 28.8 PG (27.0-34.0); MEAN PLATELET VOLUME 7.6 FL (7.0-11.0); PLATELET COUNT 275 TH/MM3 (150-450); RED BLOOD COUNT 3.71 MIL/MM3 (4.00-5.30); RED CELL DISTRIBUTION WIDTH 14.9 % (11.6-17.2); WHITE BLOOD COUNT 8.7 TH/MM3 (4.0-11.0)
[2017-08-30] MEDS: DEXAMETHASONE SOD PHOS 4 MG/ML VIAL IV PUSH SCH ×2 (05:48→20:00)
[2017-08-30] MEDS: LEVOTHYROXINE SODIUM 25 MCG TAB PO SCH (05:48)
[2017-08-30 06:18] LABS: BICARBONATE 26.1 MEQ/L (21.0-32.0); CALCIUM 8.4 MG/DL (8.5-10.1); CREATININE 0.85 MG/DL (0.50-1.00)
[2017-08-30] MEDS: INSULIN NovoLIN REGULAR SUPPLEMENTAL SCALE SQ SCH ×4 (08:00→20:06)
--- NOTE | 2017-08-30 08:09 | HHI.CCPN ---
Subjective Remarks/Hospital Course This is a 72-year-old female. Date of admission 08/26/2017. 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 She has a history of hypercalcemia status post partial parathyroidectomy. Patient presents to [facility] as a direct admit from doctor's office after an abnormal MRI. Patient has been experiencing headaches/occipitally based without vision changes for the past month. She has had gait imbalance disorder. She denies any seizure activity. She has not followed. She complains of headache as a 3 out of 10. Diffuse. Without radiation. Patient is CT yesterday without contrast and today had an MRI which I was able to review the report of. This revealed cortical enhancement and restricted diffusion in the left temporal occipital lobes. A smaller area is seen in the left frontal and parietal lobes. Very small punctate hemorrhage in the left posterior parietal lobe. Dr. Mayorga/neurosurgery is contacted. Medicine oncology was consulted. We are asked to admit the patient. Patient received 4 mg dexamethasone IV is currently on levetiracetam 500 mill grams IV twice a day. Patient currently awake and alert with only significant neurological abnormality on examination abnormal finger to nose bilaterally. 08/27 - Patient lying in bed no acute distress. Slightly slurred speech, mild left facial droop, no other focal deficits. Discussed with Dr. Mayorga. He requested lumbar puncture which are performed CSF is clear. Opening pressure is 24. Cytology and further studies requested 08/28 -worsening expressive aphasia, slurred speech today. Left facial droop is more pronounced. Pronator Drift is present currently bilaterally. Unable to do finger to nose bilaterally. Tolerated diet. Repeat CT brain today revealed no changes 08/29: Remains on room air. Discussed with Dr. Victoria overnight. Started on aspirin. Head of bed at 0. Neurologically appears stabilized. Pronator drift slightly improved. Able to do finger to nose inconsistently today. Yesterday unable to perform. Allowing passive hypertension currently. Subjective 08/30: Remains on room air. Head of bed at 0. Neurologically improved. Aphasia and right facial droop improved. Remains in permissive hypertension Objective Vital Signs Date Time Temp Pulse Resp B/P (MAP) Pulse Ox O2 Delivery O2 Flow Rate FiO2 08/30/17 07:44 95 21 08/30/17 06:00 52 1/9/18 04:00 98.7 15 151/69 (96) 08/29/17 20:00 Room Air Intake and Output 08/30/17 08/30/17 08/31/17 08:00 16:00 00:00 Output Total 1500 ml Balance -1500 ml Result Diagram: 08/30/17 0503 08/30/17 0503 Imaging Last Impressions Neck Magnetic Resonance Angiography 08/28/17 0000 Signed Impressions: Service Date/Time: Monday, August 28, 2017 20:12 - CONCLUSION: No evidence of significant atherosclerotic vascular disease or hemodynamically significant stenotic or occlusive lesions. Dominant left vertebral. Small right vertebral terminating in PICA Ladarius Perez MD Head Magnetic Resonance Angiography 08/28/17 0000 Signed Impressions: Service Date/Time: Monday, August 28, 2017 20:12 - CONCLUSION: 1. Markedly restricted flow in the left middle cerebral artery with high-grade stenosis and possible intraluminal filling defect in the M1 segment. 2. Intact right cerebral and vertebral basilar circulation. Ladarius Perez MD Head CT 08/28/17 0000 Signed Impressions: Service Date/Time: Monday, August 28, 2017 15:34 - CONCLUSION: 1. Multiple areas of decreased density in the left cerebral hemisphere which may reflect vasogenic edema associated with metastatic disease or infarction possibly embolic. Contrast enhanced MRI is recommended. Galen Melgar MD Chest CT 08/28/17 0000 Signed Impressions: Service Date/Time: Monday, August 28, 2017 15:38 - CONCLUSION: 1. No evidence of acute thoracic abnormality. No masses are identified. No evidence of metastatic disease. Galen Melgar MD Brain MRI 08/28/17 0000 Signed Impressions: Service Date/Time: Monday, August 28, 2017 20:12 - CONCLUSION: Abnormal T2 hyperintensity with restricted diffusion in the left cerebral hemisphere as described above characteristic of acute to subacute cerebral infarct. Small foci of magnetic susceptibility in the left frontal and parietal lobes characteristic of minimal petechial hemorrhage. No conclusive findings of metastatic disease. Ladarius Perez MD Abdomen/Pelvis CT 08/28/17 0000 Signed Impressions: Service Date/Time: Monday, August 28, 2017 15:38 - CONCLUSION: 1. No evidence of acute abdominal or pelvic process. No masses are identified. 2. Diverticulosis without evidence of diverticulitis. Galen Melgar MD Chest X-Ray 08/27/17 0000 Signed Impressions: Service Date/Time: Sunday, August 27, 2017 04:12 - CONCLUSION: No acute cardiopulmonary disease identified. Rajan Holcomb MD Objective Remarks GENERAL: 72-year-old female currently resting in bed at 0 in no acute distress SKIN: Warm and dry. HEAD: Atraumatic. Normocephalic. EYES: Pupils equal and round. No scleral icterus. No injection or drainage. ENT: No nasal bleeding or discharge. Mucous membranes pink and moist. NECK: Trachea midline. No JVD. CARDIOVASCULAR: Dimitri, IR. S1, S2. No S4. Without murmur RESPIRATORY: No accessory muscle use. Clear to auscultation. Breath sounds equal bilaterally. GASTROINTESTINAL: Abdomen soft, non-tender, nondistended. Active bowel sounds appreciated. Positive Pfannenstiel scar in abdomen. MUSCULOSKELETAL: Extremities without significant peripheral edema. No obvious deformities. NEUROLOGICAL: Awake and alert. Bilateral pronator drift but improved. Right facial droop improved. Strength 4-5 bilateral upper extremities. 5 out of 5 bilateral lower extremities. Abnormal finger-nose bilateral but improved. Expressive aphasia but improved. A/P Assessment and Plan Neuro/Psych: Left frontal parietal/temporal occipital lobe vasogenic edema/masses - differential includes likely thrombotic versus vascular CVA Small punctate hemorrhage left posterior parietal lobe Elevated IOC MRI brain 09/07 revealed left frontal/temporal/parietal petechial hyperdensity with diminished effusion likely indicative of acute to subacute CVA. Left frontal/parietal petechial hemorrhage. Gyriform enhancement of the left temporal lobe. MRA brain 08/28 - decreased blood flow left MCA specifically M1 segment MRA neck 08/28 -dominant left vertebral. Right vertebral small. Currently on aspirin 300 mg per rectum daily.- 324 mg by mouth daily Discussed with Dr. Victoria/neurology overnight 08/28. Head of bed flat at 0. Aspirin as above. No systemic anticoagulation due to risk of bleeding with petechial hemorrhage. Consultation placed to further evaluate. Dr. Jamil /neurology currently following MRI brain 08/26/2017 revealed vasogenic edema associated with cortical has been restricted diffusion in the left temporal occipital. Small cortical-based areas of enhancement seen in the left frontal and parietal lobes. Very small punctate hemorrhage in the left posteroparietal lobe. Currently on dexamethasone 4 mg IV every 6 hours and levetiracetam 500 mill grams IV twice a day will be weaned to starting today Seizure precautions Neurosurgery consultation - Dr. Mukesh BERRY performed -opening pressure 24, cytology and routine studies pending. Glucose 89. Protein elevated 59. Oncology consultation-Dr. Pyle Continue latanoprost 0.005% 1 drop each eye at night CV: Hypertension Dyslipidemia Last night held nifedipine 30 mg by mouth daily/home medication to allow permissive hypertension - Start low-dose amlodipine 2.5 mg by mouth daily today. As needed labetalol 10 mg every hour/hydralazine 10 mg every hour and Vaseretic 1.25 mg every 6 hours when necessary to keep systolic blood pressure less than 170 Total cholesterol 201. LDL 141. Started on pravastatin 40 mg daily On normal saline at 50 cc an hour Resp: Nasal cannula if indicated for saturations greater than equal to 92% Incentive spirometry while awake CT thorax 08/28 reveals no signs of metastatic disease. No acute cardiopulmonary findings GI: Diverticulosis Advance diet per speech therapy Pantoprazole 40 mg daily for GI prophylaxis Docusate sodium/senna 1 tablet twice a day for bowel regimen CT abdomen/pelvis revealed diverticulosis : No indication for Guerrero catheter Endo: Hypothyroidism History of parathyroidectomy 2009 Continue levothyroxine 25 mcg by mouth daily. 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 Pyle Cytology from CSF pending ID: Monitor for infection Blood cultures 2 08/28 no growth UA 06/27 no growth CSF 06/27 no growth to date HSV 1/2 pending Influenza negative MSK: Osteoarthritis Continue cholecalciferol 1000 units daily PT/OT evaluate and treat FEN: Replace electrolytes as clinically indicated Access - Utilize peripheral IV. Central line if indicated Prophylaxis - GI -pantoprazole 40 mg by mouth daily - DVT - SCDs/holding pharmacological prophylaxis the brain/small punctuate left posteroparietal lobe hemorrhage. Level II follow-up Prudencio Arthur MD Aug 30, 2017 08:09
[2017-08-30] MEDS: DOCUSATE SODIUM 50 MG/SENNA 8.6 MG TAB PO SCH ×2 (08:33→20:01)
[2017-08-30] MEDS: ASPIRIN 81 MG CHEW TAB CHEW SCH (08:33)
[2017-08-30] MEDS: levETIRAcetam INJ 500 MG in SODIUM CHLORIDE 0.9% INJ 100 ML IV SCH ×2 (08:33→23:21)
[2017-08-30] MEDS: CHOLECALCIFEROL (VIT D3) 1000 UNIT TAB PO SCH (08:34)
[2017-08-30] MEDS: hydrALAZINE HCL 20 MG/ML VIAL IV PUSH PRN ×2 (08:34→14:04)
[2017-08-30] MEDS: PANTOPRAZOLE SOD 40 MG DELAYED RELEASE TAB PO SCH (08:34)
[2017-08-30] MEDS: SODIUM CHLORIDE 0.9% FLUSH 10 ML FLUSH IV FLUSH SCH ×4 (08:34→21:00)
[2017-08-30 09:30] LABS: HSV 1,PCR Negative (Negative)
[2017-08-30] MEDS ORDERED: ENALAPRILAT 1.25 MG/ML VIAL IV PUSH PRN (10:30)
[2017-08-30] MEDS ORDERED: amLODIPine BESYLATE 5 MG TAB PO ONE (10:45)
[2017-08-30 11:46] LABS: CSF CRYPTOCOCCUS AG CONF ND (NOT DETECTD)
[2017-08-30] MEDS: ACETAMINOPHEN 325 MG TAB PO PRN (12:30)
--- NOTE | 2017-08-30 15:12 | HHI.PR ---
Review/Management Diagnosis ASSESSMENT/PLAN - The patient's neurologic assessment revealed receptive dysphasia with abnormal repetition, naming, comprehension, right facial palsy and subtle right-sided hemiparesis with an MRI that revealed evidence of multiple restricted diffusion areas in the left frontal parietal lobe, unlikely to be related to metastatic lesions in the brain. In the SWI sequence there is punctate petechial hemorrhages in the posterior parietal lobe of the left side. - There is left MCA narrowing at the M1 segment likely thromboembolic in nature. - I explained at length to the patient, her sister and daughter in law, the likely diagnosis and future prognosis of dysphasia that will need intensive speech therapy. At this time there is no role of anticoagulation given the petechial hemorrhage. There is strong evidence that antiplatelets and anticoagulants should be used with caution because of risk of extensive bleeding. - Another possible etiological factors that I discussed with the patient and her friend would be patient with history of cancer may show evidence of a hypercoagulable status or another more likely etiology is paroxysmal atrial fibrillation. - Another less likely but possible etiology is seedling of malignant cells in the brain parenchyma or intracranial blood vessels causing stroke like symptoms and clinical picture, I explained this possibility the patient and family - The patient will need telemonitoring and if no events are captured, event monitoring, Holter monitoring as an outpatient to capture possible paroxysmal atrial fibrillation episode. - Consider consult to speech therapy, physical and occupational therapy, recommendations are appreciated. - DVT prophylaxis. - Follow up on results of CSF cytology. - A lengthy family meeting with daughter in law, and sister was done at the bed side. Diagnosis/Plan: Subjective Subjective Comments Patient lays in bed with no new complaints Speech has improved compared to yesterday Sister and daughter in law at bed side EEG with no evidence of an ictal activity Active Medications Current Medications Medications (Trade) Dose Ordered Sig/Kristal Route Start Time Stop Time Status Last Admin Sodium Chloride 1,000 ml @ 50 mls/hr Q20H IV 08/26/17 18:54 08/28/17 21:44 (NS Flush) 2 ml UNSCH PRN IV FLUSH 08/26/17 19:00 (NS Flush) 2 ml BID IV FLUSH 08/26/17 21:00 08/30/17 08:34 (Tylenol) 650 mg Q6H PRN PO 08/26/17 19:00 08/30/17 12:30 ([place] 5-325 Mg) 1 tab Q4H PRN PO 08/26/17 19:00 08/28/17 03:44 (Morphine Inj) 2 mg Q3H PRN IV PUSH 08/26/17 19:15 08/27/17 12:09 (Zofran Inj) 4 mg Q6H PRN IV PUSH 08/26/17 19:00 08/26/17 22:15 (Albuterol Neb) 2.5 mg Q2HR NEB PRN INH 08/26/17 19:00 Miscellaneous Information 1 Q361D XX 08/26/17 19:00 (Chlorhexidine 2% Cloth) 3 pack Taper DAILY@04 TOP 08/27/17 04:00 08/23/18 03:59 (Chlorhexidine 2% Cloth) 3 pack UNSCH PRN TOP 08/26/17 19:00 (Renita-Colace) 1 tab BID PO 08/26/17 21:00 08/30/17 08:33 (Milk Of Magnesia Liq) 30 ml Q12H PRN PO 08/26/17 19:00 (Senokot) 17.2 mg Q12H PRN PO 08/26/17 19:00 (Dulcolax Supp) 10 mg DAILY PRN RECTAL 08/26/17 19:00 (Lactulose Liq) 30 ml DAILY PRN PO 08/26/17 19:00 (Vitamin D3) 1,000 units DAILY PO 08/27/17 09:00 08/30/17 08:34 (Xalatan 0.005% Opth Soln) 1 drop HS EACH EYE 08/26/17 21:00 08/29/17 20:47 (Synthroid) 25 mcg DAILY@0600 PO 08/27/17 06:00 08/30/17 05:48 (Trandate Inj) 10 mg Q1HR PRN IV PUSH 08/26/17 19:00 08/28/17 09:30 (Apresoline Inj) 10 mg Q1HR PRN IV PUSH 08/26/17 19:00 08/30/17 14:04 (D50w (Vial) Inj) 50 ml UNSCH PRN IV PUSH 08/26/17 19:00 (Glucagon Inj) 1 mg UNSCH PRN OTHER 08/26/17 19:00 (NovoLIN R SUPPLEMENTAL SCALE) 1 ACHS SLIDING SCALE SQ 08/26/17 21:00 08/30/17 12:00 Levetriacetam 500 mg/Sodium Chloride 105 ml @ 420 mls/hr Q12HR IV 08/26/17 21:00 08/30/17 08:33 (Protonix) 40 mg DAILY PO 08/27/17 09:00 08/30/17 08:34 (Procardia Xl) 30 mg DAILY@2100 PO 08/27/17 21:00 Future Hold 08/27/17 20:02 (NS Flush) 2 ml BID IV FLUSH 08/29/17 09:00 08/30/17 08:34 (NS Flush) 2 ml UNSCH PRN IV FLUSH 08/28/17 21:15 (Pravachol) 40 mg HS PO 08/29/17 21:00 08/29/17 20:47 (Aspirin Chew) 324 mg DAILY CHEW 08/29/17 21:00 08/30/17 08:33 (Decadron Inj) 4 mg BID IV PUSH 08/30/17 21:00 (Norvasc) 2.5 mg DAILY PO 08/31/17 09:00 (Vasotec Inj) 1.25 mg Q6H PRN IV PUSH 08/30/17 10:30 Allergies Allergies Coded Allergies No Known Allergies (Verified Allergy, Unknown, 08/26/17) Review of Systems All other ROS: ROS reviewed as documented in chart Exam I&O / VS Vital Signs Date Time Temp Pulse Resp B/P (MAP) Pulse Ox O2 Delivery O2 Flow Rate FiO2 08/30/17 12:00 56 08/30/17 12:00 98.0 56 19 173/78 (109) 96 08/30/17 10:00 47 08/30/17 08:00 98.4 48 18 193/130 (151) 93 08/30/17 08:00 45 08/30/17 07:44 95 21 08/30/17 07:00 94 Room Air 08/30/17 06:00 52 08/30/17 04:00 98.7 43 15 151/69 (96) 95 08/30/17 04:00 43 08/30/17 02:00 40 08/30/17 00:00 45 08/30/17 00:00 98.6 48 14 164/72 (102) 95 08/29/17 22:00 55 08/29/17 20:00 93 Room Air 08/29/17 20:00 98.6 48 20 171/77 (108) 97 08/29/17 19:26 95 21 08/29/17 18:00 57 08/29/17 16:00 58 08/29/17 16:00 98.1 58 21 162/71 (101) 97 Exam Comments General: Awake, alert, dysphasia, pleasant, not in acute distress. HEENT: Atraumatic, normocephalic. Intact hearing. Intact vision. Neck: Supple. Trachea in the midline. No signs of meningeal irritation. Cardiovascular: Regular rate and rhythm. Respiratory: Clear to auscultation, no wheezes. Gastrointestinal: Soft abdomen, nontender Neurological: Awake, alert, expressive dysphasia with abnormal naming [pen as pencil as opposed to yesterday, unable to identify/ watch named as time machine as opposed to yesterday unable to name] abnormal comprehension, abnormal repetition [ fragmented repetition as opposed to inability to repeat yesterday] . Right facial palsy [ milder than yesterday] . No nystagmus. No ptosis. The patient is right-handed, however, during the encounter there is preference to use the left upper extremity. Intact sensation throughout. [place] is intact. No abnormal movements. Reflexes 1+ bilateral symmetrical. Plantars are bilaterally downgoing. Psychiatric: Cooperative, given her dysphasic symptoms, not agitated. No hallucinations, Objective Radiology Results Last 72 hours Impressions Neck Magnetic Resonance Angiography 08/28/17 0000 Signed Impressions: Service Date/Time: Monday, August 28, 2017 20:12 - CONCLUSION: No evidence of significant atherosclerotic vascular disease or hemodynamically significant stenotic or occlusive lesions. Dominant left vertebral. Small right vertebral terminating in PICA Ladarius Perez MD Head Magnetic Resonance Angiography 08/28/17 0000 Signed Impressions: Service Date/Time: Monday, August 28, 2017 20:12 - CONCLUSION: 1. Markedly restricted flow in the left middle cerebral artery with high-grade stenosis and possible intraluminal filling defect in the M1 segment. 2. Intact right cerebral and vertebral basilar circulation. Ladarius Perez MD Head CT 08/28/17 0000 Signed Impressions: Service Date/Time: Monday, August 28, 2017 15:34 - CONCLUSION: 1. Multiple areas of decreased density in the left cerebral hemisphere which may reflect vasogenic edema associated with metastatic disease or infarction possibly embolic. Contrast enhanced MRI is recommended. Galen Melgar MD Chest CT 08/28/17 0000 Signed Impressions: Service Date/Time: Monday, August 28, 2017 15:38 - CONCLUSION: 1. No evidence of acute thoracic abnormality. No masses are identified. No evidence of metastatic disease. Galen Melgar MD Brain MRI 08/28/17 0000 Signed Impressions: Service Date/Time: Monday, August 28, 2017 20:12 - CONCLUSION: Abnormal T2 hyperintensity with restricted diffusion in the left cerebral hemisphere as described above characteristic of acute to subacute cerebral infarct. Small foci of magnetic susceptibility in the left frontal and parietal lobes characteristic of minimal petechial hemorrhage. No conclusive findings of metastatic disease. Ladarius Perez MD Abdomen/Pelvis CT 08/28/17 0000 Signed Impressions: Service Date/Time: Monday, August 28, 2017 15:38 - CONCLUSION: 1. No evidence of acute abdominal or pelvic process. No masses are identified. 2. Diverticulosis without evidence of diverticulitis. Galen Melgar MD Micro and Labs Laboratory Tests Test 08/30/17 05:03 08/30/17 13:00 White Blood Count 8.7 Red Blood Count 3.71 Hemoglobin 10.7 Hematocrit 32.4 Mean Corpuscular Volume 87.2 Mean Corpuscular Hemoglobin 28.8 Mean Corpuscular Hemoglobin Concent 33.0 Red Cell Distribution Width 14.9 Platelet Count 275 Mean Platelet Volume 7.6 Blood Urea Nitrogen 25 Creatinine 0.85 Random Glucose 145 Calcium Level 8.4 Sodium Level 143 Potassium Level 3.8 Chloride Level 108 Carbon Dioxide Level 26.1 Anion Gap 9 Estimat Glomerular Filtration Rate 66 Date/Time Source Procedure Growth Status 08/28/17 21:30 Blood Peripheral Aerobic Blood Culture - Preliminary NO GROWTH IN 2 DAYS Resulted 08/28/17 21:30 Blood Peripheral Anaerobic Blood Culture - Preliminary NO GROWTH IN 2 DAYS Resulted 08/27/17 11:21 Cerebral Spinal Fluid Lumbar Puncture Fungal Smear - Final NO FUNGAL ELEMENTS SEEN. Resulted 08/27/17 11:21 Cerebral Spinal Fluid Lumbar Puncture Fungal Culture Pending Resulted 08/28/17 18:44 Nasal Aspirate Influenza Types A,B Antigen (IRENE) - Final NEGATIVE FOR FLU A AND B ANTIGEN.... Complete Ossi,Raid G. MD Aug 30, 2017 15:12
--- NOTE | 2017-08-30 15:49 | HHI.NSPN ---
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 She presented with expressive aphasia and was snt to [facility] from doctor's office after an abnormal MRI. Patient has been experiencing headaches/occipitally based without vision changes for the past month. She has had gait imbalance disorder. She denies any seizure activity. No tongue bitting. No incontinence of stool or urine. She complains of headache as a 3 out of 10. Diffuse. Without radiation. Patient is CT yesterday without contrast and today had an MRI which showed cortical enhancement and restricted diffusion in the left temporal occipital lobes. A smaller blister is seen in the left frontal and parietal lobes. A small punctate hemorrhage in the left posterior parietal lobe. Neurosurgical consultation was requested 08/29: pt was seen this morning during rounds, currently undergoing EEG testing. MRI Brain yesterday with acute infarcts. 08/30: speech a bit better today, moving ext with mild R side weakness, eating breakfast. EEG neg for seizures. Echo with normal EF, 60-65%, no report of embolus. (Karen Boles) Labs, Micro, & Vital Signs Results Date Time Temp Pulse Resp B/P (MAP) Pulse Ox O2 Delivery O2 Flow Rate FiO2 08/30/17 12:00 56 08/30/17 12:00 98.0 56 19 173/78 (109) 96 08/30/17 10:00 47 08/30/17 08:00 98.4 48 18 193/130 (151) 93 08/30/17 08:00 45 08/30/17 07:44 95 21 08/30/17 07:00 94 Room Air 08/30/17 06:00 52 08/30/17 04:00 98.7 43 15 151/69 (96) 95 08/30/17 04:00 43 08/30/17 02:00 40 08/30/17 00:00 45 08/30/17 00:00 98.6 48 14 164/72 (102) 95 08/29/17 22:00 55 08/29/17 20:00 93 Room Air 08/29/17 20:00 98.6 48 20 171/77 (108) 97 08/29/17 19:26 95 21 08/29/17 18:00 57 08/29/17 16:00 58 08/29/17 16:00 98.1 58 21 162/71 (101) 97 Constitutional Vital Signs Date Time Temp Pulse Resp B/P (MAP) Pulse Ox O2 Delivery O2 Flow Rate FiO2 08/30/17 12:00 56 08/30/17 12:00 98.0 56 19 173/78 (109) 96 08/30/17 10:00 47 08/30/17 08:00 98.4 48 18 193/130 (151) 93 08/30/17 08:00 45 08/30/17 07:44 95 21 08/30/17 07:00 94 Room Air 08/30/17 06:00 52 08/30/17 04:00 98.7 43 15 151/69 (96) 95 08/30/17 04:00 43 08/30/17 02:00 40 08/30/17 00:00 45 08/30/17 00:00 98.6 48 14 164/72 (102) 95 08/29/17 22:00 55 08/29/17 20:00 93 Room Air 08/29/17 20:00 98.6 48 20 171/77 (108) 97 08/29/17 19:26 95 21 08/29/17 18:00 57 08/29/17 16:00 58 08/29/17 16:00 98.1 58 21 162/71 (101) 97 (Karen Boles) Physical Exam Ms. Holcomb alert, awake and oriented to time, place and person. Speech is dysarthric. Follows commands, mild to mod expressive aphasia. Cranial nerve examination: pupils to be equal, round and reactive to light. Extra-ocular movements are intact. Right supranuclear weakness Neck is soft and supple with a good range of motion without pain. Motor: moves ext with mild R hemiparesis SKIN: Warm and dry. CARDIOVASCULAR: regular RESPIRATORY: Clear, nonlabored breathing (Karen Boles) Ms. Holcomb alert, awake and oriented to time, place and person. Speech is dysarthric. Follows commands, mild to mod expressive aphasia. Cranial nerve examination: pupils to be equal, round and reactive to light. Extra-ocular movements are intact. Right supranuclear weakness Neck is soft and supple with a good range of motion without pain. Motor: moves ext with mild R hemiparesis SKIN: Warm and dry. CARDIOVASCULAR: regular RESPIRATORY: Clear, nonlabored breathing (Johann Mayorga MD) Medications Current Medications Current Medications Medications (Trade) Dose Ordered Sig/Kristal Route PRN Reason Start Time Stop Time Status Last Admin Dose Admin Sodium Chloride 1,000 ml @ 50 mls/hr Q20H IV 08/26/17 18:54 08/28/17 21:44 Sodium Chloride (NS Flush) 2 ml UNSCH PRN IV FLUSH FLUSH AFTER USING IV ACCESS 08/26/17 19:00 Sodium Chloride (NS Flush) 2 ml BID IV FLUSH 08/26/17 21:00 08/30/17 08:34 Acetaminophen (Tylenol) 650 mg Q6H PRN PO headache, fever 08/26/17 19:00 08/30/17 12:30 Acetaminophen/ Hydrocodone Bitart ([place] 5-325 Mg) 1 tab Q4H PRN PO PAIN SCALE 1 TO 5 08/26/17 19:00 08/28/17 03:44 Morphine Sulfate (Morphine Inj) 2 mg Q3H PRN IV PUSH PAIN SCALE 6 TO 10 08/26/17 19:15 08/27/17 12:09 Ondansetron HCl (Zofran Inj) 4 mg Q6H PRN IV PUSH NAUSEA OR VOMITING 08/26/17 19:00 08/26/17 22:15 Albuterol Sulfate (Albuterol Neb) 2.5 mg Q2HR NEB PRN INH SOB/WHEEZING 08/26/17 19:00 Miscellaneous Information 1 Q361D XX 08/26/17 19:00 Chlorhexidine Gluconate (Chlorhexidine 2% Cloth) 3 pack Taper DAILY@04 TOP 08/27/17 04:00 08/23/18 03:59 Chlorhexidine Gluconate (Chlorhexidine 2% Cloth) 3 pack UNSCH PRN TOP HYGIENIC CARE 08/26/17 19:00 Senna/Docusate Sodium (Renita-Colace) 1 tab BID PO 08/26/17 21:00 08/30/17 08:33 Magnesium Hydroxide (Milk Of Magnesia Liq) 30 ml Q12H PRN PO Mild constipation 08/26/17 19:00 Sennosides (Senokot) 17.2 mg Q12H PRN PO Moderate constipation 08/26/17 19:00 Bisacodyl (Dulcolax Supp) 10 mg DAILY PRN RECTAL SEVERE CONSITIPATION 08/26/17 19:00 Lactulose (Lactulose Liq) 30 ml DAILY PRN PO SEVERE CONSITIPATION 08/26/17 19:00 Cholecalciferol (Vitamin D3) 1,000 units DAILY PO 08/27/17 09:00 08/30/17 08:34 Latanoprost (Xalatan 0.005% Opth Soln) 1 drop HS EACH EYE 08/26/17 21:00 08/29/17 20:47 Levothyroxine Sodium (Synthroid) 25 mcg DAILY@0600 PO 08/27/17 06:00 08/30/17 05:48 Labetalol HCl (Trandate Inj) 10 mg Q1HR PRN IV PUSH SBP>170, DBP>90, HR>65 08/26/17 19:00 08/28/17 09:30 Hydralazine HCl (Apresoline Inj) 10 mg Q1HR PRN IV PUSH SBP>170, DBP>90 08/26/17 19:00 08/30/17 14:04 Dextrose (D50w (Vial) Inj) 50 ml UNSCH PRN IV PUSH HYPOGLYCEMIA-SEE COMMENTS 08/26/17 19:00 Glucagon (Glucagon Inj) 1 mg UNSCH PRN OTHER HYPOGLYCEMIA-SEE COMMENTS 08/26/17 19:00 Insulin Human Regular (NovoLIN R SUPPLEMENTAL SCALE) 1 ACHS SLIDING SCALE SQ 08/26/17 21:00 08/30/17 12:00 Levetriacetam 500 mg/Sodium Chloride 105 ml @ 420 mls/hr Q12HR IV 08/26/17 21:00 08/30/17 08:33 Pantoprazole Sodium (Protonix) 40 mg DAILY PO 08/27/17 09:00 08/30/17 08:34 Nifedipine (Procardia Xl) 30 mg DAILY@2100 PO 08/27/17 21:00 Future Hold 08/27/17 20:02 Sodium Chloride (NS Flush) 2 ml BID IV FLUSH 08/29/17 09:00 08/30/17 08:34 Sodium Chloride (NS Flush) 2 ml UNSCH PRN IV FLUSH FLUSH AFTER USING IV ACCESS 08/28/17 21:15 Pravastatin Sodium (Pravachol) 40 mg HS PO 08/29/17 21:00 08/29/17 20:47 Aspirin (Aspirin Chew) 324 mg DAILY CHEW 08/29/17 21:00 08/30/17 08:33 Dexamethasone Sodium Phosphate (Decadron Inj) 4 mg BID IV PUSH 08/30/17 21:00 Amlodipine Besylate (Norvasc) 2.5 mg DAILY PO 08/31/17 09:00 Enalaprilat (Vasotec Inj) 1.25 mg Q6H PRN IV PUSH SBP>180, DBP>90 08/30/17 10:30 (Karen Boles) Current Medications Current Medications Dexamethasone Sodium Phosphate (Decadron Inj) 4 mg Q6HR IV PUSH Last administered on 08/30/17at 05:48; Start 08/27/17 at 00:00; Stop 08/30/17 at 10:28; Status DC Potassium Chloride (KCl) 20 meq ONCE ONCE PO Last administered on 08/26/17at 20: 10; Start 08/26/17 at 19:00; Stop 08/26/17 at 19:01; Status DC Sodium Chloride 1,000 ml @ 50 mls/hr Q20H IV Last administered on 09/01/17at 14 :04; Start 08/26/17 at 18:54; Stop 09/02/17 at 11:58; Status DC Sodium Chloride (NS Flush) 2 ml UNSCH PRN IV FLUSH FLUSH AFTER USING IV ACCESS ; Start 08/26/17 at 19:00; Stop 09/01/17 at 10:59; Status DC Sodium Chloride (NS Flush) 2 ml BID IV FLUSH Last administered on 08/31/17at 21: 06; Start 08/26/17 at 21:00; Stop 09/01/17 at 10:59; Status DC Acetaminophen (Tylenol) 650 mg Q6H PRN PO headache, fever Last administered on 08/31/17 21:03; Start 08/26/17 at 19:00 Acetaminophen/ Hydrocodone Bitart ([place] 5-325 Mg) 1 tab Q4H PRN PO PAIN SCALE 1 TO 5 Last administered on 08/28/17 03:44; Start 08/26/17 at 19:00 Morphine Sulfate (Morphine Inj) 2 mg Q3H PRN IV PUSH PAIN SCALE 6 TO 10 Last administered on 08/27/17at 12:09; Start 08/26/17 at 19:15 Ondansetron HCl (Zofran Inj) 4 mg Q6H PRN IV PUSH NAUSEA OR VOMITING Last administered on 08/26/17 22:15; Start 08/26/17 at 19:00 Albuterol Sulfate (Albuterol Neb) 2.5 mg Q2HR NEB PRN INH SOB/WHEEZING; Start 08/26/17 at 19:00 Miscellaneous Information 1 Q361D XX ; Start 08/26/17 at 19:00 Chlorhexidine Gluconate (Chlorhexidine 2% Cloth) Taper DAILY@04 TOP ; Start 08/27 at 04:00; Stop 08/23/18 at 03:59 Chlorhexidine Gluconate (Chlorhexidine 2% Cloth) 3 pack UNSCH PRN TOP HYGIENIC CARE; Start 08/26/17 at 19:00 Senna/Docusate Sodium (Renita-Colace) 1 tab BID PO Last administered on at 08:36; Start 08/26/17 at 21:00 Magnesium Hydroxide (Milk Of Magnesia Liq) 30 ml Q12H PRN PO Mild constipation Last administered on 09/03/17at 09:30; Start 08/26/17 at 19:00 Sennosides (Senokot) 17.2 mg Q12H PRN PO Moderate constipation; Start 08/26/17 at 19:00 Bisacodyl (Dulcolax Supp) 10 mg DAILY PRN RECTAL SEVERE CONSITIPATION; Start at 19:00 Lactulose (Lactulose Liq) 30 ml DAILY PRN PO SEVERE CONSITIPATION; Start at 19:00 Cholecalciferol (Vitamin D3) 1,000 units DAILY PO Last administered on at 08:36; Start 08/27/17 at 09:00 Latanoprost (Xalatan 0.005% Opth Soln) 1 drop HS EACH EYE Last administered on 09/03/17at 23:04; Start 08/26/17 at 21:00 Levothyroxine Sodium (Synthroid) 25 mcg DAILY@0600 PO Last administered on 09/04at 05:54; Start 08/27/17 at 06:00 Nifedipine (Procardia Xl) 30 mg DAILY PO ; Start 08/27/17 at 09:00; Stop 08/27/17 at 09:00; Status DC Labetalol HCl (Trandate Inj) 10 mg Q1HR PRN IV PUSH SBP>170, DBP>90, HR>65 Last administered on 08/28/17at 09:30; Start 08/26/17 at 19:00; Stop 09/02/17 at 11 :58; Status DC Hydralazine HCl (Apresoline Inj) 10 mg Q1HR PRN IV PUSH SBP>170, DBP>90 Last administered on 08/31/17at 12:54; Start 08/26/17 at 19:00; Stop 09/02/17 at 11:58 ; Status DC Dextrose (D50w (Vial) Inj) 50 ml UNSCH PRN IV PUSH HYPOGLYCEMIA-SEE COMMENTS; Start 08/26/17 at 19:00 Glucagon (Glucagon Inj) 1 mg UNSCH PRN OTHER HYPOGLYCEMIA-SEE COMMENTS; Start 08/26/17 at 19:00 Insulin Human Regular (NovoLIN R SUPPLEMENTAL SCALE) 1 ACHS SLIDING SCALE SQ Last administered on 09/03/17at 17:50; Start 08/26/17 at 21:00 Potassium Chloride (KCl) 20 meq ONCE ONCE PO Last administered on 08/26/17at 22: 14; Start 08/26/17 at 21:00; Stop 08/26/17 at 21:01; Status DC Levetriacetam 500 mg/Sodium Chloride 105 ml @ 420 mls/hr Q12HR IV Last administered on 08/31/17at 21:06; Start 08/26/17 at 21:00; Stop 09/01/17 at 10:51 ; Status DC Pantoprazole Sodium (Protonix) 40 mg DAILY PO Last administered on 09/04/17at 08 :36; Start 08/27/17 at 09:00 Nifedipine (Procardia Xl) 30 mg DAILY@2100 PO Last administered on 08/27/17at 20: 02; Start 08/27/17 at 21:00; Stop 08/31/17 at 15:10; Status DC Nifedipine (Procardia Xl) 30 mg NOW ONCE PO Last administered on 08/26/17at 23: 03; Start 08/26/17 at 23:00; Stop 08/26/17 at 23:04; Status DC Lorazepam (Ativan Inj) 2 mg STK-MED ONCE .ROUTE ; Start 08/27/17 at 10:55; Stop 08/27/17 at 10:56; Status DC Lorazepam (Ativan Inj) 2 mg UNSCH X1 IV PUSH Last administered on 08/27/17at 10: 09; Start 08/27/17 at 11:00; Stop 08/27/17 at 18:00; Status DC Morphine Sulfate (Morphine Inj) 4 mg UNSCH X1 IV PUSH ; Start 08/27/17 at 11:00 ; Stop 08/27/17 at 18:00; Status DC Diatrizoate Meglum/ Diatrizoate Sod ( Gastroview Liq) 18 ml ONCE ONCE PO Last administered on 08/28/17at 12:05; Start 08/28/17 at 12:15; Stop 08/28/17 at 12: 16; Status DC Iohexol (Omnipaque 350 Inj) 95 ml STK-MED ONCE IVCONTRAST Last administered on 08/28/17at 15:59; Start 08/28/17 at 15:59; Stop 08/28/17 at 16:00; Status DC Gadodiamide (Omniscan Pf Inj) 20 ml STK-MED ONCE IVCONTRAST Last administered on 08/28/17at 20:27; Start 08/28/17 at 20:27; Stop 08/28/17 at 20:28; Status DC Aspirin (Aspirin Supp) 300 mg ONCE ONCE RECTAL Last administered on 08/28/17at 21:53; Start 08/28/17 at 21:15; Stop 08/28/17 at 21:32; Status DC Aspirin (Aspirin Supp) 300 mg DAILY RECTAL ; Start 08/29/17 at 09:00; Stop at 12:34; Status DC Sodium Chloride (NS Flush) 2 ml BID IV FLUSH Last administered on 09/04/17at 08: 37; Start 08/29/17 at 09:00 Sodium Chloride (NS Flush) 2 ml UNSCH PRN IV FLUSH FLUSH AFTER USING IV ACCESS ; Start 08/28/17 at 21:15 Pravastatin Sodium (Pravachol) 40 mg HS PO Last administered on 09/03/17at 20:38 ; Start 08/29/17 at 21:00 Potassium Chloride (KCl) 30 meq ONCE ONCE PO Last administered on 08/29/17at 09: 32; Start 08/29/17 at 07:15; Stop 08/29/17 at 07:19; Status DC Acetaminophen 100 ml @ 400 mls/hr ONCE ONCE IV Last administered on 08/29/17at 12:51; Start 08/29/17 at 12:45; Stop 08/29/17 at 12:59; Status DC Aspirin (Aspirin Chew) 324 mg DAILY CHEW Last administered on 09/04/17at 08:35; Start 08/29/17 at 21:00 Dexamethasone Sodium Phosphate (Decadron Inj) 4 mg BID IV PUSH Last administered on 09/02/17at 08:36; Start 08/30/17 at 21:00; Stop 09/02/17 at 11:58 ; Status DC Amlodipine Besylate (Norvasc) 2.5 mg ONCE ONCE PO Last administered on at 12:31; Start 08/30/17 at 10:45; Stop 08/30/17 at 10:46; Status DC Amlodipine Besylate (Norvasc) 2.5 mg DAILY PO Last administered on 08/31/17at 08 :35; Start 08/31/17 at 09:00; Stop 08/31/17 at 12:22; Status DC Enalaprilat (Vasotec Inj) 1.25 mg Q6H PRN IV PUSH SBP>180, DBP>90 Last administered on 09/02/17at 08:37; Start 08/30/17 at 10:30 Amlodipine Besylate (Norvasc) 2.5 mg BID PO ; Start 08/31/17 at 21:00; Stop 06/08 at 21:00; Status DC Miscellaneous (Pill Splitter) 1 ea UNSCH PRN OTHER SEE LABEL COMMENTS; Start at 12:45 Metoprolol Tartrate (Lopressor Inj) 2.5 mg ONCE ONCE IV PUSH Last administered on 08/31/17at 16:05; Start 08/31/17 at 15:15; Stop 08/31/17 at 15:16 ; Status DC Nifedipine (Procardia Xl) 30 mg HS PO Last administered on 09/03/17at 20:39; Start 08/31/17 at 21:00 Potassium Chloride (KCl) 30 meq NOW ONCE PO Last administered on 08/31/17at 16: 06; Start 08/31/17 at 16:00; Stop 08/31/17 at 16:01; Status DC Levetriacetam (Keppra) 500 mg Q12HR PO Last administered on 09/04/17at 08:35; Start 09/01/17 at 11:00 Dexamethasone (Decadron) 4 mg Q12HR PO Last administered on 09/03/17at 09:32; Start 09/02/17 at 21:00; Stop 09/03/17 at 15:14; Status DC Lisinopril (Prinivil) 10 mg Q12HR PO Last administered on 09/04/17at 08:36; Start 09/03/17 at 21:00 Dexamethasone (Decadron) 4 mg DAILY PO Last administered on 09/04/17at 08:36; Start 09/04/17 at 09:00 (Johann Mayorga MD) Medical Decision Making MDM Remarks 72 y/o female abnormal brain lesion found on MRI 08/26/[facility], unknown etiology , however not typical of breast metastases, s/p lumbar puncture for CSF cytology worsened aphasia - acute infarct on MRI Brain with small petechial hemorrhage 08/28/17 (Karen Boles) Plan Plan Remarks Neurology evaluation noted, cont ASA, follow up LP cytology and cultures Holter monitor to assess for Paroxysmal A. Fib dw family in room (Karen Boles) Attending Statement Continue neuro checks. Pulmonary.. Continue aggressive pulmonary toilette, nasotracheal suction, and breathing treatments with nebulizers. Nutrition. NPO Renal. monitor closely urine output, BUN and creatinine Endocrine. Monitor serial Acu checks and SSI as needed in detail ID monitor for signs of infection Protonix for stress ulcer prophylaxis Caleb hose and SCD's for DVT prophylaxis. The exam, history, and the medical decision-making described in the above note were completed with the assistance of the mid-level provider. I reviewed and agree with the findings presented. I attest that I had a [id number] encounter with the patient on the same day, and personally performed and documented my assessment and findings in the medical record. (Johann Mayorga MD) Karen Boles Aug 30, 2017 15:49 Johann Mayorga MD Sep 04, 2017 10:03
[2017-08-30] MEDS: PRAVASTATIN SOD 40 MG TAB PO SCH (20:00)
[2017-08-30] MEDS: LATANOPROST 0.005% OPHT SOLN 2.5 ML BTL EACH EYE SCH (20:05)
[2017-08-31] VITALS (13 sets, daily range): BP systolic 143–210; BP diastolic 69–89; PULSE 42–119; RESP 14–28; TEMP 98.1–98.6; O2SAT 94–97
[2017-08-31] MEDS: CHLORHEXIDINE GLUCONATE 2 % 1 PACK (2 CLOTHS) TOP SCH (04:00)
[2017-08-31 05:15] LABS: AUTOMATED NEUTROPHIL # 7.6 TH/MM3 (1.8-7.7); BASOPHIL % 0.1 % (0.0-2.0); HEMATOCRIT 33.8 % (35.0-46.0); HEMOGLOBIN 11.6 GM/DL (11.6-15.3); LYMPH % 10.3 % (9.0-44.0); LYMPHOCYTE # 0.9 TH/MM3 (1.0-4.8); MEAN CELL VOLUME 86.5 FL (80.0-100.0); MEAN CORPUSCULAR HEMOGLOBIN 29.7 PG (27.0-34.0); MEAN CORPUSCULAR HGB CONC 34.4 % (32.0-36.0); MEAN PLATELET VOLUME 7.5 FL (7.0-11.0); MONO % 5.8 % (0.0-8.0); MONOCYTE # 0.5 TH/MM3 (0-0.9); NEUT % 83.8 % (16.0-70.0); PLATELET COUNT 310 TH/MM3 (150-450); RED BLOOD COUNT 3.91 MIL/MM3 (4.00-5.30); RED CELL DISTRIBUTION WIDTH 14.8 % (11.6-17.2); WHITE BLOOD COUNT 9.1 TH/MM3 (4.0-11.0)
[2017-08-31 05:41] LABS: ALBUMIN 3.1 GM/DL (3.4-5.0); ALT (GPT) 29 U/L (10-53); AST (GOT) 15 U/L (15-37); BICARBONATE 26.3 MEQ/L (21.0-32.0); BLOOD UREA NITROGEN 24 MG/DL (7-18); CALCIUM 8.4 MG/DL (8.5-10.1); CHLORIDE 107 MEQ/L (98-107); CREATININE 0.81 MG/DL (0.50-1.00); GLOMERULAR FILTRATION RATE 70 ML/MIN (>89); GLUCOSE,RANDOM 134 MG/DL (74-106); SODIUM (NA) 142 MEQ/L (136-145)
[2017-08-31 05:43] LABS: ALKALINE PHOSPHATASE 71 U/L (45-117); TOTAL BILIRUBIN ADULT 0.4 MG/DL (0.2-1.0); TOTAL PROTEIN 6.5 GM/DL (6.4-8.2)
[2017-08-31] MEDS: LEVOTHYROXINE SODIUM 25 MCG TAB PO SCH (05:56)
[2017-08-31] MEDS: INSULIN NovoLIN REGULAR SUPPLEMENTAL SCALE SQ SCH ×4 (08:00→22:33)
--- NOTE | 2017-08-31 08:01 | RADRPT ---
EXAM DATE/TIME: 08/31/2017 07:38 [facility] COMPARISON: CT BRAIN W/O CONTRAST, August 28, 2017, 15:34. INDICATIONS : Increasing right facial droop. Mental status change. RADIATION DOSE: 56.35 CTDIvol (mGy) MEDICAL HISTORY : Carcinoma, breast. Hypertension. Stroke. SURGICAL HISTORY : Mastectomy, bilateral. Hysterectomy. ENCOUNTER: Subsequent ACUITY: 1 day PAIN SCALE: Non-responsive LOCATION: cranial TECHNIQUE: Multiple contiguous axial images were obtained of the head. Using automated exposure control and adj ustment of the mA and/or kV according to patient size, radiation dose was kept as low as reasonably a chievable to obtain optimal diagnostic quality images. DICOM format image data is available electro nically for review and comparison. FINDINGS: CEREBRUM: Evolving multifocal infarcts in the left frontal parietal and temporal lobes. No midline shift or mas s effect. The ventricles are normal for age. No evidence of, mass lesion or hemorrhage. No extra-ax ial fluid collections are seen. POSTERIOR FOSSA: The cerebellum and brainstem are intact. The 4th ventricle is midline. The cerebellopontine angle i s unremarkable. EXTRACRANIAL: The visualized portion of the orbits is intact. SKULL: The calvaria is intact. No evidence of skull fracture. CONCLUSION: Evolving multifocal infarction left cerebral hemisphere. No midline shift. Aditya Rojas MD on August 31, 2017 at 7:56 Board Certified Radiologist. This report was verified electronically.
[2017-08-31] MEDS: DEXAMETHASONE SOD PHOS 4 MG/ML VIAL IV PUSH SCH ×2 (08:32→21:04)
[2017-08-31] MEDS: CHOLECALCIFEROL (VIT D3) 1000 UNIT TAB PO SCH (08:34)
[2017-08-31] MEDS: levETIRAcetam INJ 500 MG in SODIUM CHLORIDE 0.9% INJ 100 ML IV SCH ×2 (08:34→21:06)
[2017-08-31] MEDS: ASPIRIN 81 MG CHEW TAB CHEW SCH (08:34)
[2017-08-31] MEDS: DOCUSATE SODIUM 50 MG/SENNA 8.6 MG TAB PO SCH ×2 (08:34→21:04)
[2017-08-31] MEDS: PANTOPRAZOLE SOD 40 MG DELAYED RELEASE TAB PO SCH (08:34)
[2017-08-31] MEDS: SODIUM CHLORIDE 0.9% FLUSH 10 ML FLUSH IV FLUSH SCH ×4 (08:35→21:06)
[2017-08-31] MEDS ORDERED: amLODIPine BESYLATE 5 MG TAB PO SCH ×2 (09:00→21:00)
--- NOTE | 2017-08-31 10:41 | HHI.NSPN ---
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 She presented with expressive aphasia and was snt to [place] [facility] from doctor's office after an abnormal MRI. Patient has been experiencing headaches/occipitally based without vision changes for the past month. She has had gait imbalance disorder. She denies any seizure activity. No tongue bitting. No incontinence of stool or urine. She complains of headache as a 3 out of 10. Diffuse. Without radiation. Patient is CT yesterday without contrast and today had an MRI which showed cortical enhancement and restricted diffusion in the left temporal occipital lobes. A smaller blister is seen in the left frontal and parietal lobes. A small punctate hemorrhage in the left posterior parietal lobe. Neurosurgical consultation was requested 08/29: pt was seen this morning during rounds, currently undergoing EEG testing. MRI Brain yesterday with acute infarcts. 08/30: speech a bit better today, moving ext with mild R side weakness, eating breakfast. EEG neg for seizures. Echo with normal EF, 60-65%, no report of embolus. 08/31: had episode of worsened aphasia this morning, a repeat CT Head with evolving left side CVA without acute hemorrhage, mass effect of midline shift. CSF cytology negative for malignancy. (Karen Boles) Labs, Micro, & Vital Signs Results Date Time Temp Pulse Resp B/P (MAP) Pulse Ox O2 Delivery O2 Flow Rate FiO2 08/31/17 10:00 74 08/31/17 09:36 21.00 08/31/17 08:00 96 Room Air 08/31/17 08:00 98.3 52 21 173/71 (105) 96 08/31/17 08:00 52 08/31/17 06:00 53 08/31/17 04:00 42 08/31/17 04:00 98.4 42 16 160/70 (100) 95 08/31/17 02:00 45 08/31/17 00:00 98.6 49 14 157/72 (100) 94 08/31/17 00:00 52 08/30/17 22:00 50 08/30/17 20:10 99 08/30/17 20:00 61 08/30/17 20:00 98.2 61 20 161/74 (103) 95 08/30/17 19:00 96 Room Air 08/30/17 18:00 77 08/30/17 16:00 97.6 90 21 156/73 (100) 98 08/30/17 16:00 90 08/30/17 14:00 54 08/30/17 12:00 56 08/30/17 12:00 98.0 56 19 173/78 (109) 96 Constitutional Vital Signs Date Time Temp Pulse Resp B/P (MAP) Pulse Ox O2 Delivery O2 Flow Rate FiO2 08/31/17 10:00 74 08/31/17 09:36 21.00 08/31/17 08:00 96 Room Air 08/31/17 08:00 98.3 52 21 173/71 (105) 96 08/31/17 08:00 52 08/31/17 06:00 53 08/31/17 04:00 42 08/31/17 04:00 98.4 42 16 160/70 (100) 95 08/31/17 02:00 45 08/31/17 00:00 98.6 49 14 157/72 (100) 94 08/31/17 00:00 52 08/30/17 22:00 50 08/30/17 20:10 99 08/30/17 20:00 61 08/30/17 20:00 98.2 61 20 161/74 (103) 95 08/30/17 19:00 96 Room Air 08/30/17 18:00 77 08/30/17 16:00 97.6 90 21 156/73 (100) 98 08/30/17 16:00 90 08/30/17 14:00 54 08/30/17 12:00 56 08/30/17 12:00 98.0 56 19 173/78 (109) 96 (Karen Boles) Physical Exam Ms. Holcomb alert, awake and oriented to time, place and person. Speech is dysarthric. Follows commands, mild to mod expressive aphasia. Cranial nerve examination: pupils to be equal, round and reactive to light. Extra-ocular movements are intact. Right supranuclear weakness Neck is soft and supple with a good range of motion without pain. Motor: moves all four extremities against gravity with mild R hemiparesis SKIN: Warm and dry. CARDIOVASCULAR: regular RESPIRATORY: Clear, nonlabored breathing (Karen Boles) Ms. Holcomb alert, awake and oriented to time, place and person. Speech is dysarthric. Follows commands, mild to mod expressive aphasia. Cranial nerve examination: pupils to be equal, round and reactive to light. Extra-ocular movements are intact. Right supranuclear weakness Neck is soft and supple with a good range of motion without pain. Motor: moves all four extremities against gravity with mild R hemiparesis SKIN: Warm and dry. CARDIOVASCULAR: regular RESPIRATORY: Clear, nonlabored breathing (Johann Mayorga MD) Medications Current Medications Current Medications Medications (Trade) Dose Ordered Sig/Kristal Route PRN Reason Start Time Stop Time Status Last Admin Dose Admin Sodium Chloride 1,000 ml @ 50 mls/hr Q20H IV 08/26/17 18:54 08/30/17 08:00 Sodium Chloride (NS Flush) 2 ml UNSCH PRN IV FLUSH FLUSH AFTER USING IV ACCESS 08/26/17 19:00 Sodium Chloride (NS Flush) 2 ml BID IV FLUSH 08/26/17 21:00 08/31/17 08:35 Acetaminophen (Tylenol) 650 mg Q6H PRN PO headache, fever 08/26/17 19:00 08/30/17 12:30 Acetaminophen/ Hydrocodone Bitart (Heber 5-325 Mg) 1 tab Q4H PRN PO PAIN SCALE 1 TO 5 08/26/17 19:00 08/28/17 03:44 Morphine Sulfate (Morphine Inj) 2 mg Q3H PRN IV PUSH PAIN SCALE 6 TO 10 08/26/17 19:15 08/27/17 12:09 Ondansetron HCl (Zofran Inj) 4 mg Q6H PRN IV PUSH NAUSEA OR VOMITING 08/26/17 19:00 08/26/17 22:15 Albuterol Sulfate (Albuterol Neb) 2.5 mg Q2HR NEB PRN INH SOB/WHEEZING 08/26/17 19:00 Miscellaneous Information 1 Q361D XX 08/26/17 19:00 Chlorhexidine Gluconate (Chlorhexidine 2% Cloth) 3 pack Taper DAILY@04 TOP 08/27/17 04:00 08/23/18 03:59 Chlorhexidine Gluconate (Chlorhexidine 2% Cloth) 3 pack UNSCH PRN TOP HYGIENIC CARE 08/26/17 19:00 Senna/Docusate Sodium (Renita-Colace) 1 tab BID PO 08/26/17 21:00 08/31/17 08:34 Magnesium Hydroxide (Milk Of Magnesia Liq) 30 ml Q12H PRN PO Mild constipation 08/26/17 19:00 Sennosides (Senokot) 17.2 mg Q12H PRN PO Moderate constipation 08/26/17 19:00 Bisacodyl (Dulcolax Supp) 10 mg DAILY PRN RECTAL SEVERE CONSITIPATION 08/26/17 19:00 Lactulose (Lactulose Liq) 30 ml DAILY PRN PO SEVERE CONSITIPATION 08/26/17 19:00 Cholecalciferol (Vitamin D3) 1,000 units DAILY PO 08/27/17 09:00 08/31/17 08:34 Latanoprost (Xalatan 0.005% Opth Soln) 1 drop HS EACH EYE 08/26/17 21:00 08/30/17 20:05 Levothyroxine Sodium (Synthroid) 25 mcg DAILY@0600 PO 08/27/17 06:00 08/31/17 05:56 Labetalol HCl (Trandate Inj) 10 mg Q1HR PRN IV PUSH SBP>170, DBP>90, HR>65 08/26/17 19:00 08/28/17 09:30 Hydralazine HCl (Apresoline Inj) 10 mg Q1HR PRN IV PUSH SBP>170, DBP>90 08/26/17 19:00 08/30/17 14:04 Dextrose (D50w (Vial) Inj) 50 ml UNSCH PRN IV PUSH HYPOGLYCEMIA-SEE COMMENTS 08/26/17 19:00 Glucagon (Glucagon Inj) 1 mg UNSCH PRN OTHER HYPOGLYCEMIA-SEE COMMENTS 08/26/17 19:00 Insulin Human Regular (NovoLIN R SUPPLEMENTAL SCALE) 1 ACHS SLIDING SCALE SQ 08/26/17 21:00 08/30/17 20:06 Levetriacetam 500 mg/Sodium Chloride 105 ml @ 420 mls/hr Q12HR IV 08/26/17 21:00 08/31/17 08:34 Pantoprazole Sodium (Protonix) 40 mg DAILY PO 08/27/17 09:00 08/31/17 08:34 Nifedipine (Procardia Xl) 30 mg DAILY@2100 PO 08/27/17 21:00 Future Hold 08/27/17 20:02 Sodium Chloride (NS Flush) 2 ml BID IV FLUSH 08/29/17 09:00 08/31/17 08:35 Sodium Chloride (NS Flush) 2 ml UNSCH PRN IV FLUSH FLUSH AFTER USING IV ACCESS 08/28/17 21:15 Pravastatin Sodium (Pravachol) 40 mg HS PO 08/29/17 21:00 08/30/17 20:00 Aspirin (Aspirin Chew) 324 mg DAILY CHEW 08/29/17 21:00 08/31/17 08:34 Dexamethasone Sodium Phosphate (Decadron Inj) 4 mg BID IV PUSH 08/30/17 21:00 08/31/17 08:32 Amlodipine Besylate (Norvasc) 2.5 mg DAILY PO 08/31/17 09:00 08/31/17 08:35 Enalaprilat (Vasotec Inj) 1.25 mg Q6H PRN IV PUSH SBP>180, DBP>90 08/30/17 10:30 (Karen Boles) Medical Decision Making MDM Remarks 72 y/o female abnormal brain lesion found on MRI 08/26/[facility], unknown etiology , however not typical of breast metastases, s/p lumbar puncture for CSF cytology , CSF cytology without evidence of malignancy worsened aphasia - acute infarct on MRI Brain with small petechial hemorrhage 08/28/17, f/u CT Head 08/31/17 without evolving CVA without midline shift or acute hemorrhage (Karen Boles) Plan Plan Remarks f/u CT Head reviewed, stable cont Neurology mgt for CVA cont ASA cont PT, OT, ST (Karen Boles) Plan Remarks Continue supportive caRE Continue neuro checks. Pulmonary.. Continue aggressive pulmonary toilette, nasotracheal suction, and breathing treatments with nebulizers. Nutrition. NPO Renal. monitor closely urine output, BUN and creatinine Endocrine. Monitor serial Acu checks and SSI as needed in detail ID monitor for signs of infection Protonix for stress ulcer prophylaxis Caleb hose and SCD's for DVT prophylaxis. The exam, history, and the medical decision-making described in the above note were completed with the assistance of the mid-level provider. I reviewed and agree with the findings presented. I attest that I had a [id number] encounter with the patient on the same day, and personally performed and documented my assessment and findings in the medical record. (Johann Mayorga MD) Karen Boles Aug 31, 2017 10:41 Johann Mayorga MD Sep 04, 2017 10:08
[2017-08-31] MEDS ORDERED: PILL SPLITTER OTHER PRN (12:45)
[2017-08-31] MEDS: hydrALAZINE HCL 20 MG/ML VIAL IV PUSH PRN (12:54)
--- NOTE | 2017-08-31 14:24 | HHI.CCPN ---
Subjective Remarks/Hospital Course This is a 72-year-old female. Date of admission 08/26/2017. 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 She has a history of hypercalcemia status post partial parathyroidectomy. Patient presents to [facility] as a direct admit from doctor's office after an abnormal MRI. Patient has been experiencing headaches/occipitally based without vision changes for the past month. She has had gait imbalance disorder. She denies any seizure activity. She has not followed. She complains of headache as a 3 out of 10. Diffuse. Without radiation. Patient is CT yesterday without contrast and today had an MRI which I was able to review the report of. This revealed cortical enhancement and restricted diffusion in the left temporal occipital lobes. A smaller area is seen in the left frontal and parietal lobes. Very small punctate hemorrhage in the left posterior parietal lobe. Dr. Mayorga/neurosurgery is contacted. Medicine oncology was consulted. We are asked to admit the patient. Patient received 4 mg dexamethasone IV is currently on levetiracetam 500 mill grams IV twice a day. Patient currently awake and alert with only significant neurological abnormality on examination abnormal finger to nose bilaterally. 08/27 - Patient lying in bed no acute distress. Slightly slurred speech, mild left facial droop, no other focal deficits. Discussed with Dr. Mayorga. He requested lumbar puncture which are performed CSF is clear. Opening pressure is 24. Cytology and further studies requested 08/28 -worsening expressive aphasia, slurred speech today. Left facial droop is more pronounced. Pronator Drift is present currently bilaterally. Unable to do finger to nose bilaterally. Tolerated diet. Repeat CT brain today revealed no changes 08/29: Remains on room air. Discussed with Dr. Victoria overnight. Started on aspirin. Head of bed at 0. Neurologically appears stabilized. Pronator drift slightly improved. Able to do finger to nose inconsistently today. Yesterday unable to perform. Allowing passive hypertension currently. 08/30: Remains on room air. Head of bed at 0. Neurologically improved. Aphasia and right facial droop improved. Remains in permissive hypertension Subjective 08/31: CT brain revealed evolving left MCA CVA. Otherwise, neurologic patient is the same as yesterday. Tolerating diet. Continue aspirin. Objective Vital Signs Date Time Temp Pulse Resp B/P (MAP) Pulse Ox O2 Delivery O2 Flow Rate FiO2 08/31/17 12:00 98.6 69 28 167/77 (107) 97 08/31/17 09:36 21.00 08/31/17 08:00 Room Air 08/30/17 07:44 21 Result Diagram: 08/31/17 0452 08/31/17 0452 Other Results Microbiology Date/Time Source Procedure Growth Status 08/28/17 21:30 Blood Peripheral Aerobic Blood Culture - Preliminary NO GROWTH IN 3 DAYS Resulted 08/28/17 21:30 Blood Peripheral Anaerobic Blood Culture - Preliminary NO GROWTH IN 3 DAYS Resulted 08/27/17 11:21 Cerebral Spinal Fluid Lumbar Puncture Fungal Smear - Final NO FUNGAL ELEMENTS SEEN. Resulted 08/27/17 11:21 Cerebral Spinal Fluid Lumbar Puncture Fungal Culture Pending Resulted 08/28/17 18:44 Nasal Aspirate Influenza Types A,B Antigen (IRENE) - Final NEGATIVE FOR FLU A AND B ANTIGEN.... Complete Imaging Last Impressions Head CT 08/31/17 0000 Signed Impressions: Service Date/Time: Thursday, August 31, 2017 07:38 - CONCLUSION: Evolving multifocal infarction left cerebral hemisphere. No midline shift. Aditya Rojas MD Neck Magnetic Resonance Angiography 08/28/17 0000 Signed Impressions: Service Date/Time: Monday, August 28, 2017 20:12 - CONCLUSION: No evidence of significant atherosclerotic vascular disease or hemodynamically significant stenotic or occlusive lesions. Dominant left vertebral. Small right vertebral terminating in PICA Ladarius Perez MD Head Magnetic Resonance Angiography 08/28/17 0000 Signed Impressions: Service Date/Time: Monday, August 28, 2017 20:12 - CONCLUSION: 1. Markedly restricted flow in the left middle cerebral artery with high-grade stenosis and possible intraluminal filling defect in the M1 segment. 2. Intact right cerebral and vertebral basilar circulation. Ladarius Perez MD Chest CT 08/28/17 0000 Signed Impressions: Service Date/Time: Monday, August 28, 2017 15:38 - CONCLUSION: 1. No evidence of acute thoracic abnormality. No masses are identified. No evidence of metastatic disease. Galen Melgar MD Brain MRI 08/28/17 0000 Signed Impressions: Service Date/Time: Monday, August 28, 2017 20:12 - CONCLUSION: Abnormal T2 hyperintensity with restricted diffusion in the left cerebral hemisphere as described above characteristic of acute to subacute cerebral infarct. Small foci of magnetic susceptibility in the left frontal and parietal lobes characteristic of minimal petechial hemorrhage. No conclusive findings of metastatic disease. Ladarius Perez MD Abdomen/Pelvis CT 08/28/17 0000 Signed Impressions: Service Date/Time: Monday, August 28, 2017 15:38 - CONCLUSION: 1. No evidence of acute abdominal or pelvic process. No masses are identified. 2. Diverticulosis without evidence of diverticulitis. Galen Melgar MD Chest X-Ray 08/27/17 0000 Signed Impressions: Service Date/Time: Sunday, August 27, 2017 04:12 - CONCLUSION: No acute cardiopulmonary disease identified. Rajan Holcomb MD Objective Remarks GENERAL: 72-year-old female currently resting in bed at 0 in no acute distress SKIN: Warm and dry. HEAD: Atraumatic. Normocephalic. EYES: Pupils equal and round. No scleral icterus. No injection or drainage. ENT: No nasal bleeding or discharge. Mucous membranes pink and moist. NECK: Trachea midline. No JVD. CARDIOVASCULAR: Dimitri, IR. S1, S2. No S4. Without murmur RESPIRATORY: No accessory muscle use. Clear to auscultation. Breath sounds equal bilaterally. GASTROINTESTINAL: Abdomen soft, non-tender, nondistended. Active bowel sounds appreciated. Positive Pfannenstiel scar in abdomen. MUSCULOSKELETAL: Extremities without significant peripheral edema. No obvious deformities. NEUROLOGICAL: Awake and alert. Bilateral pronator drift but improved. Right facial droop improved. Strength 4-5 bilateral upper extremities. 5 out of 5 bilateral lower extremities. Abnormal finger-nose bilateral but improved. Expressive aphasia but improved. A/P Assessment and Plan Neuro/Psych: Left frontal parietal/temporal occipital lobe vasogenic edema/masses - differential includes likely thrombotic versus vascular CVA Small punctate hemorrhage left posterior parietal lobe Elevated IOC MRI brain 09/07 revealed left frontal/temporal/parietal petechial hyperdensity with diminished effusion likely indicative of acute to subacute CVA. Left frontal/parietal petechial hemorrhage. Gyriform enhancement of the left temporal lobe. MRA brain 08/28 - decreased blood flow left MCA specifically M1 segment MRA neck 08/28 -dominant left vertebral. Right vertebral small. Currently on aspirin 324 mg by mouth daily Discussed with Dr. Victoria/neurology overnight 08/28. Head of bed flat at 0. Aspirin as above. No systemic anticoagulation due to risk of bleeding with petechial hemorrhage. Consultation placed to further evaluate. Dr. Jamil /neurology currently following MRI brain 08/26/2017 revealed vasogenic edema associated with cortical has been restricted diffusion in the left temporal occipital. Small cortical-based areas of enhancement seen in the left frontal and parietal lobes. Very small punctate hemorrhage in the left posteroparietal lobe. Currently on dexamethasone 4 mg IV every 12 hours and levetiracetam 500 mill grams IV twice a day will be weaned to starting today Seizure precautions Neurosurgery consultation - Dr. Mukesh BERRY performed -opening pressure 24, cytology and routine studies pending. Glucose 89. Protein elevated 59. Oncology consultation-Dr. Pyle Continue latanoprost 0.005% 1 drop each eye at night CV: Hypertension Dyslipidemia Last night held nifedipine 30 mg by mouth daily/home medication to allow permissive hypertension - Start low-dose amlodipine 2.5 mg by mouth daily today. As needed labetalol 10 mg every hour/hydralazine 10 mg every hour and Vaseretic 1.25 mg every 6 hours when necessary to keep systolic blood pressure less than 170 Total cholesterol 201. LDL 141. Started on pravastatin 40 mg daily On normal saline at 50 cc an hour Resp: Nasal cannula if indicated for saturations greater than equal to 92% Incentive spirometry while awake CT thorax 08/28 reveals no signs of metastatic disease. No acute cardiopulmonary findings GI: Diverticulosis Advance diet per speech therapy Pantoprazole 40 mg daily for GI prophylaxis Docusate sodium/senna 1 tablet twice a day for bowel regimen CT abdomen/pelvis revealed diverticulosis : No indication for Guerrero catheter Endo: Hypothyroidism History of parathyroidectomy 2009 Continue levothyroxine 25 mcg by mouth daily. 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 Pyle Cytology from CSF pending ID: Monitor for infection Blood cultures 2 08/28 no growth UA 06/27 no growth CSF 06/27 no growth to date HSV 1/2 pending Influenza negative MSK: Osteoarthritis Continue cholecalciferol 1000 units daily PT/OT evaluate and treat FEN: Replace electrolytes as clinically indicated Access - Utilize peripheral IV. Central line if indicated Prophylaxis - GI -pantoprazole 40 mg by mouth daily - DVT - SCDs/holding pharmacological prophylaxis the brain/small punctuate left posteroparietal lobe hemorrhage. Level II follow-up Spent long discussion with sister. Returned once results CT revealed. Discussed with son and [id number] as well for several minutes at approximately 1400. Care plan discussed and all questions answered.. Patient is stable from critical care medicine standpoint. Assign care to hospitalist in a.m. 09/01. Transfer from ICU. Prudencio Arthur MD Aug 31, 2017 14:24
[2017-08-31] MEDS ORDERED: METOPROLOL TARTRATE 5 MG/5 ML VIAL IV PUSH ONE (15:15)
[2017-08-31 15:46] LABS: CARDIOLIPIN IGG AB <9.4 GPL
[2017-08-31] MEDS ORDERED: POTASSIUM CHLORIDE 10 MEQ CONTROLLED RELEASE TAB PO ONE (16:00)
--- NOTE | 2017-08-31 16:11 | RADRPT ---
EXAM DATE/TIME: 08/31/2017 15:31 [facility] COMPARISON: No previous studies available for comparison. INDICATIONS : Bilateral leg swelling. MEDICAL HISTORY : Hypercholesterolemia. Hypertension. Arthritis. SURGICAL HISTORY : Hysterectomy. Left breast lumpectomy. Partial thyroidectomy. Parathyroidectomy. ENCOUNTER: Initial ACUITY: >1 year PAIN SCORE: 1/10 LOCATION: Bilateral legs. TECHNIQUE: Venous ultrasound of the left and right leg was performed from the inguinal ligament to the proximal calf. Real-time, color Doppler and spectral tracing, compression and augmentation techniques were us ed. FINDINGS: RIGHT LEG: There is normal compressibility of the deep venous system from the inguinal region to the proximal ca lf. No echogenic clot is seen in the lumen of the common femoral, femoral, popliteal, and posterior tibial veins. There is a normal response of the venous system to proximal and distal augmentation an d respiration. LEFT LEG: There is normal compressibility of the deep venous system from the inguinal region to the proximal ca lf. No echogenic clot is seen in the lumen of the common femoral, femoral, popliteal, and posterior tibial veins. There is a normal response of the venous system to proximal and distal augmentation an d respiration. CONCLUSION: No DVT in either lower extremity. Aditya Rojas MD on August 31, 2017 at 16:08 Board Certified Radiologist. This report was verified electronically.
[2017-08-31] MEDS: SODIUM CHLOR 0.9% 1000 ML INJ 1,000 ML IV SCH (17:25)
[2017-08-31 17:52] LABS: CSF CRYPTOCOCCUS ANTIGEN NOT DETECTED (NEGATIVE)
[2017-08-31] MEDS: LATANOPROST 0.005% OPHT SOLN 2.5 ML BTL EACH EYE SCH (21:00)
[2017-08-31] MEDS: ACETAMINOPHEN 325 MG TAB PO PRN (21:03)
[2017-08-31] MEDS: PRAVASTATIN SOD 40 MG TAB PO SCH (21:04)
[2017-08-31] MEDS: NIFEdipine 30 MG SUSTAINED RELEASE TAB PO SCH (21:05)
[2017-09-01] VITALS (10 sets, daily range): BP systolic 146–177; BP diastolic 66–82; PULSE 59–77; RESP 16–18; TEMP 97.3–98.3; O2SAT 95–98
[2017-09-01] MEDS: CHLORHEXIDINE GLUCONATE 2 % 1 PACK (2 CLOTHS) TOP SCH (03:03)
[2017-09-01] MEDS: LEVOTHYROXINE SODIUM 25 MCG TAB PO SCH (06:45)
[2017-09-01 07:01] LABS: HEMOGLOBIN 11.8 GM/DL (11.6-15.3); MEAN CELL VOLUME 87.2 FL (80.0-100.0); MEAN CORPUSCULAR HEMOGLOBIN 30.1 PG (27.0-34.0); MEAN CORPUSCULAR HGB CONC 34.6 % (32.0-36.0); PLATELET COUNT 315 TH/MM3 (150-450); WHITE BLOOD COUNT 9.5 TH/MM3 (4.0-11.0)
[2017-09-01 07:28] LABS: BICARBONATE 25.6 MEQ/L (21.0-32.0); CALCIUM 8.2 MG/DL (8.5-10.1); CREATININE 0.83 MG/DL (0.50-1.00); MAGNESIUM 2.2 MG/DL (1.5-2.5); PHOSPHORUS 3.6 MG/DL (2.5-4.9)
[2017-09-01] MEDS: INSULIN NovoLIN REGULAR SUPPLEMENTAL SCALE SQ SCH ×3 (08:00→17:00)
[2017-09-01] MEDS: SODIUM CHLORIDE 0.9% FLUSH 10 ML FLUSH IV FLUSH SCH ×2 (09:00→21:19)
[2017-09-01] MEDS: CHOLECALCIFEROL (VIT D3) 1000 UNIT TAB PO SCH (10:42)
[2017-09-01] MEDS: ASPIRIN 81 MG CHEW TAB CHEW SCH (10:43)
[2017-09-01] MEDS: DOCUSATE SODIUM 50 MG/SENNA 8.6 MG TAB PO SCH ×2 (10:43→21:18)
[2017-09-01] MEDS: PANTOPRAZOLE SOD 40 MG DELAYED RELEASE TAB PO SCH (10:43)
--- NOTE | 2017-09-01 10:49 | HHI.PR ---
Subjective Remarks doing ok. daughter at bedside no new events Objective Vitals neuro. aphasia but seems improved minimal right face droop mild rue weakness heart reg lung cta abd s/nt] ext no edema Vital Signs Date Time Temp Pulse Resp B/P (MAP) Pulse Ox O2 Delivery O2 Flow Rate FiO2 09/01/17 08:00 98.1 64 18 177/81 (113) 95 09/01/17 04:45 98.3 68 16 175/82 (113) 98 09/01/17 00:30 97.6 62 17 146/66 (92) 96 08/31/17 23:57 61 08/31/17 21:09 77 184/78 (113) 08/31/17 20:10 96 Room Air 08/31/17 19:12 98.1 87 15 210/89 (129) 95 167/76 (106) 08/31/17 18:00 87 08/31/17 16:00 87 08/31/17 16:00 98.6 87 22 143/69 (93) 95 08/31/17 14:00 119 08/31/17 12:00 98.6 69 28 167/77 (107) 97 08/31/17 12:00 69 Result Diagram: 09/01/17 0629 09/01/17 0629 A/P Problem List: (1) CVA (cerebral vascular accident) ICD Codes: I63.9 - Cerebral infarction, unspecified Status: Acute Plan: 1. acute left hemispheric cva. felt to be embolic or from hypercoagulable state aphasia/rue weakness improved 2. htn long discussion with daughter from [place]. nurse we reviewed mri images/labs/meds and direction of care discussed rehab wishes with CM cont pt/ot/st very slow normalization of bp. cont current meds asa and statin neurology following. will d/c to rehab when ok with neuro still on iv decadron. can try to convert keppra to po ssi hypercoag panel pending (2) History of breast cancer in female ICD Codes: Z85.3 - Personal history of malignant neoplasm of breast Status: Chronic (3) Hypothyroidism ICD Codes: E03.9 - Hypothyroidism, unspecified Status: Chronic (4) Dyslipidemia ICD Codes: E78.5 - Hyperlipidemia, unspecified Status: Chronic (5) Hypertension ICD Codes: I10 - Essential (primary) hypertension Status: Chronic Problem Qualifiers (1) Hypothyroidism: Qualified Codes: E03.9 - Hypothyroidism, unspecified (2) Hypertension: Qualified Codes: I10 - Essential (primary) hypertension Fernie Sprague MD Sep 01, 2017 10:49
[2017-09-01] MEDS: DEXAMETHASONE SOD PHOS 4 MG/ML VIAL IV PUSH SCH ×2 (13:45→21:18)
[2017-09-01] MEDS: levETIRAcetam 500 MG TAB PO SCH ×2 (13:45→21:18)
[2017-09-01] MEDS: SODIUM CHLOR 0.9% 1000 ML INJ 1,000 ML IV SCH (14:04)
--- NOTE | 2017-09-01 15:17 | HHI.PR ---
Review/Management Diagnosis - The patient's neurologic assessment revealed receptive dysphasia with abnormal repetition, naming, comprehension, right facial palsy and subtle right- sided hemiparesis with an MRI that revealed evidence of multiple restricted diffusion areas in the left frontal parietal lobe, unlikely to be related to metastatic lesions in the brain. In the SWI sequence there is punctate petechial hemorrhages in the posterior parietal lobe of the left side. - There is left MCA narrowing at the M1 segment likely thromboembolic in nature. - I explained at length to the patient, her sister and daughter, the likely diagnosis and future prognosis of dysphasia that will need intensive speech therapy. At this time there is no role of anticoagulation given the petechial hemorrhage. There is strong evidence that antiplatelets and anticoagulants should be used with caution because of risk of extensive bleeding. - Another possible etiological factors that I discussed with the patient and her friend would be patient with history of cancer may show evidence of a hypercoagulable status or another more likely etiology is paroxysmal atrial fibrillation. - The patient will need telemonitoring and if no events are captured, event monitoring, Holter monitoring as an outpatient to capture possible paroxysmal atrial fibrillation episode. - Consider consult to speech therapy, physical and occupational therapy, recommendations are appreciated. - DVT prophylaxis. - A lengthy family meeting with the daughter, and sister was done at the bed side. - No further neurologic work up is needed at this time - Patient needs rehab speech and OT/ therapy Diagnosis/Plan: Subjective Subjective Comments No acute events reported Sister and daughter at bed side There is some improvement in the speech EEG with no evidence of an ictal activity Active Medications Current Medications Medications (Trade) Dose Ordered Sig/Kristal Route Start Time Stop Time Status Last Admin Sodium Chloride 1,000 ml @ 50 mls/hr Q20H IV 08/26/17 18:54 08/31/17 17:25 (Tylenol) 650 mg Q6H PRN PO 08/26/17 19:00 08/31/17 21:03 ([place] 5-325 Mg) 1 tab Q4H PRN PO 08/26/17 19:00 08/28/17 03:44 (Morphine Inj) 2 mg Q3H PRN IV PUSH 08/26/17 19:15 08/27/17 12:09 (Zofran Inj) 4 mg Q6H PRN IV PUSH 08/26/17 19:00 1/5/18 22:15 (Albuterol Neb) 2.5 mg Q2HR NEB PRN INH 08/26/17 19:00 Miscellaneous Information 1 Q361D XX 08/26/17 19:00 (Chlorhexidine 2% Cloth) Taper DAILY@04 TOP 08/27/17 04:00 08/23/18 03:59 (Chlorhexidine 2% Cloth) 3 pack UNSCH PRN TOP 08/26/17 19:00 (Renita-Colace) 1 tab BID PO 08/26/17 21:00 09/01/17 10:43 (Milk Of Magnesia Liq) 30 ml Q12H PRN PO 08/26/17 19:00 (Senokot) 17.2 mg Q12H PRN PO 08/26/17 19:00 (Dulcolax Supp) 10 mg DAILY PRN RECTAL 08/26/17 19:00 (Lactulose Liq) 30 ml DAILY PRN PO 08/26/17 19:00 (Vitamin D3) 1,000 units DAILY PO 08/27/17 09:00 09/01/17 10:42 (Xalatan 0.005% Opth Soln) 1 drop HS EACH EYE 08/26/17 21:00 08/30/17 20:05 (Synthroid) 25 mcg DAILY@0600 PO 08/27/17 06:00 09/01/17 06:45 (Trandate Inj) 10 mg Q1HR PRN IV PUSH 08/26/17 19:00 08/28/17 09:30 (Apresoline Inj) 10 mg Q1HR PRN IV PUSH 08/26/17 19:00 08/31/17 12:54 (D50w (Vial) Inj) 50 ml UNSCH PRN IV PUSH 08/26/17 19:00 (Glucagon Inj) 1 mg UNSCH PRN OTHER 08/26/17 19:00 (NovoLIN R SUPPLEMENTAL SCALE) 1 ACHS SLIDING SCALE SQ 08/26/17 21:00 08/31/17 22:33 (Protonix) 40 mg DAILY PO 08/27/17 09:00 09/01/17 10:43 (NS Flush) 2 ml BID IV FLUSH 08/29/17 09:00 09/01/17 09:00 (NS Flush) 2 ml UNSCH PRN IV FLUSH 08/28/17 21:15 (Pravachol) 40 mg HS PO 08/29/17 21:00 08/31/17 21:04 (Aspirin Chew) 324 mg DAILY CHEW 08/29/17 21:00 09/01/17 10:43 (Decadron Inj) 4 mg BID IV PUSH 08/30/17 21:00 09/01/17 13:45 (Vasotec Inj) 1.25 mg Q6H PRN IV PUSH 08/30/17 10:30 (Pill Splitter) 1 ea UNSCH PRN OTHER 08/31/17 12:45 (Procardia Xl) 30 mg HS PO 08/31/17 21:00 08/31/17 21:05 (Keppra) 500 mg Q12HR PO 09/01/17 11:00 09/01/17 13:45 Allergies Allergies Coded Allergies No Known Allergies (Verified Allergy, Unknown, 08/26/17) Review of Systems All other ROS: ROS reviewed as documented in chart Exam I&O / VS Vital Signs Date Time Temp Pulse Resp B/P (MAP) Pulse Ox O2 Delivery O2 Flow Rate FiO2 09/01/17 14:52 64 09/01/17 14:39 96 Room Air 09/01/17 12:09 97.3 60 18 160/77 (104) 97 09/01/17 09:00 59 09/01/17 08:00 98.1 64 18 177/81 (113) 95 09/01/17 04:45 98.3 68 16 175/82 (113) 98 09/01/17 00:30 97.6 62 17 146/66 (92) 96 08/31/17 23:57 61 08/31/17 21:09 77 184/78 (113) 08/31/17 20:10 96 Room Air 08/31/17 19:12 98.1 87 15 210/89 (129) 95 167/76 (106) 08/31/17 18:00 87 08/31/17 16:00 87 08/31/17 16:00 98.6 87 22 143/69 (93) 95 Exam Comments General: Awake, alert, dysphasia, pleasant, not in acute distress. HEENT: Atraumatic, normocephalic. Intact hearing. Intact vision. Neck: Supple. Trachea in the midline. No signs of meningeal irritation. Cardiovascular: Regular rate and rhythm. Respiratory: Clear to auscultation, no wheezes. Gastrointestinal: Soft abdomen, nontender Neurological: Awake, alert, expressive dysphasia with abnormal naming [pen as pencil as opposed to yesterday, unable to identify/ watch named as 'clock'] abnormal comprehension, abnormal repetition [fragmented repetition as opposed to inability to repeat yesterday]. Right facial palsy [ milder] . No nystagmus. No ptosis. The patient is right-handed, however, during the encounter there is preference to use the left upper extremity. Intact sensation throughout. [id number] is intact. No abnormal movements. Reflexes 1+ bilateral symmetrical. Plantars are bilaterally downgoing. Psychiatric: Cooperative, given her dysphasic symptoms, not agitated. No hallucinations, Objective Radiology Results Last 72 hours Impressions Lower Extremity Ultrasound 08/31/17 0000 Signed Impressions: Service Date/Time: Thursday, August 31, 2017 15:31 - CONCLUSION: No DVT in either lower extremity. Aditya Rojas MD Head CT 08/31/17 0000 Signed Impressions: Service Date/Time: Thursday, August 31, 2017 07:38 - CONCLUSION: Evolving multifocal infarction left cerebral hemisphere. No midline shift. Aditya Rojas MD Micro and Labs Laboratory Tests Test 09/01/17 06:29 White Blood Count 9.5 Red Blood Count 3.90 Hemoglobin 11.8 Hematocrit 34.0 Mean Corpuscular Volume 87.2 Mean Corpuscular Hemoglobin 30.1 Mean Corpuscular Hemoglobin Concent 34.6 Red Cell Distribution Width 15.0 Platelet Count 315 Mean Platelet Volume 8.0 Blood Urea Nitrogen 21 Creatinine 0.83 Random Glucose 139 Calcium Level 8.2 Phosphorus Level 3.6 Magnesium Level 2.2 Sodium Level 140 Potassium Level 3.6 Chloride Level 106 Carbon Dioxide Level 25.6 Anion Gap 8 Estimat Glomerular Filtration Rate 68 Date/Time Source Procedure Growth Status 08/28/17 21:30 Blood Peripheral Aerobic Blood Culture - Preliminary NO GROWTH IN 4 DAYS Resulted 08/28/17 21:30 Blood Peripheral Anaerobic Blood Culture - Preliminary NO GROWTH IN 4 DAYS Resulted 08/27/17 11:21 Cerebral Spinal Fluid Lumbar Puncture Fungal Smear - Final NO FUNGAL ELEMENTS SEEN. Resulted 08/27/17 11:21 Cerebral Spinal Fluid Lumbar Puncture Fungal Culture Pending Resulted 08/28/17 18:44 Nasal Aspirate Influenza Types A,B Antigen (IRENE) - Final NEGATIVE FOR FLU A AND B ANTIGEN.... Complete Frank Jamil MD Sep 01, 2017 15:17
--- NOTE | 2017-09-01 15:35 | HHI.NSPN ---
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 She presented with expressive aphasia and was snt to [facility] from doctor's office after an abnormal MRI. Patient has been experiencing headaches/occipitally based without vision changes for the past month. She has had gait imbalance disorder. She denies any seizure activity. No tongue bitting. No incontinence of stool or urine. She complains of headache as a 3 out of 10. Diffuse. Without radiation. Patient is CT yesterday without contrast and today had an MRI which showed cortical enhancement and restricted diffusion in the left temporal occipital lobes. A smaller blister is seen in the left frontal and parietal lobes. A small punctate hemorrhage in the left posterior parietal lobe. Neurosurgical consultation was requested 08/29: pt was seen this morning during rounds, currently undergoing EEG testing. MRI Brain yesterday with acute infarcts. 08/30: speech a bit better today, moving ext with mild R side weakness, eating breakfast. EEG neg for seizures. Echo with normal EF, 60-65%, no report of embolus. 08/31: had episode of worsened aphasia this morning, a repeat CT Head with evolving left side CVA without acute hemorrhage, mass effect of midline shift. CSF cytology negative for malignancy. 09/01: another daughter in room, stable focal deficits, no acute events overnight. (Karen Boles) Labs, Micro, & Vital Signs Results Date Time Temp Pulse Resp B/P (MAP) Pulse Ox O2 Delivery O2 Flow Rate FiO2 09/01/17 14:52 64 09/01/17 14:39 96 Room Air 09/01/17 12:09 97.3 60 18 160/77 (104) 97 09/01/17 09:00 59 09/01/17 08:00 98.1 64 18 177/81 (113) 95 09/01/17 04:45 98.3 68 16 175/82 (113) 98 09/01/17 00:30 97.6 62 17 146/66 (92) 96 08/31/17 23:57 61 08/31/17 21:09 77 184/78 (113) 08/31/17 20:10 96 Room Air 08/31/17 19:12 98.1 87 15 210/89 (129) 95 167/76 (106) 08/31/17 18:00 87 08/31/17 16:00 87 08/31/17 16:00 98.6 87 22 143/69 (93) 95 Constitutional Vital Signs Date Time Temp Pulse Resp B/P (MAP) Pulse Ox O2 Delivery O2 Flow Rate FiO2 09/01/17 14:52 64 09/01/17 14:39 96 Room Air 09/01/17 12:09 97.3 60 18 160/77 (104) 97 09/01/17 09:00 59 09/01/17 08:00 98.1 64 18 177/81 (113) 95 09/01/17 04:45 98.3 68 16 175/82 (113) 98 09/01/17 00:30 97.6 62 17 146/66 (92) 96 08/31/17 23:57 61 08/31/17 21:09 77 184/78 (113) 08/31/17 20:10 96 Room Air 08/31/17 19:12 98.1 87 15 210/89 (129) 95 167/76 (106) 08/31/17 18:00 87 08/31/17 16:00 87 08/31/17 16:00 98.6 87 22 143/69 (93) 95 (Karen Boles) Physical Exam Ms. Holcomb alert, awake and oriented to time, place and person. Speech is dysarthric. Follows commands, mild to mod expressive aphasia. Cranial nerve examination: pupils to be equal, round and reactive to light. Extra-ocular movements are intact. Right supranuclear weakness Neck is soft and supple with a good range of motion without pain. Motor: moves all four extremities against gravity with mild R hemiparesis SKIN: Warm and dry CARDIOVASCULAR: regular RESPIRATORY: clear, nonlabored breathing (Karen Boles) Ms. Holcomb alert, awake and oriented to time, place and person. Speech is dysarthric. Follows commands, mild to mod expressive aphasia. Cranial nerve examination: pupils to be equal, round and reactive to light. Extra-ocular movements are intact. Right supranuclear weakness Neck is soft and supple with a good range of motion without pain. Motor: moves all four extremities against gravity with mild R hemiparesis SKIN: Warm and dry CARDIOVASCULAR: regular RESPIRATORY: clear, nonlabored breathing (Johann Mayorga MD) Medications Current Medications Current Medications Medications (Trade) Dose Ordered Sig/Kristal Route PRN Reason Start Time Stop Time Status Last Admin Dose Admin Sodium Chloride 1,000 ml @ 50 mls/hr Q20H IV 08/26/17 18:54 08/31/17 17:25 Acetaminophen (Tylenol) 650 mg Q6H PRN PO headache, fever 08/26/17 19:00 08/31/17 21:03 Acetaminophen/ Hydrocodone Bitart ([place] 5-325 Mg) 1 tab Q4H PRN PO PAIN SCALE 1 TO 5 08/26/17 19:00 08/28/17 03:44 Morphine Sulfate (Morphine Inj) 2 mg Q3H PRN IV PUSH PAIN SCALE 6 TO 10 08/26/17 19:15 08/27/17 12:09 Ondansetron HCl (Zofran Inj) 4 mg Q6H PRN IV PUSH NAUSEA OR VOMITING 08/26/17 19:00 08/26/17 22:15 Albuterol Sulfate (Albuterol Neb) 2.5 mg Q2HR NEB PRN INH SOB/WHEEZING 08/26/17 19:00 Miscellaneous Information 1 Q361D XX 08/26/17 19:00 Chlorhexidine Gluconate (Chlorhexidine 2% Cloth) Taper DAILY@04 TOP 08/27/17 04:00 08/23/18 03:59 Chlorhexidine Gluconate (Chlorhexidine 2% Cloth) 3 pack UNSCH PRN TOP HYGIENIC CARE 08/26/17 19:00 Senna/Docusate Sodium (Renita-Colace) 1 tab BID PO 08/26/17 21:00 09/01/17 10:43 Magnesium Hydroxide (Milk Of Magnesia Liq) 30 ml Q12H PRN PO Mild constipation 08/26/17 19:00 Sennosides (Senokot) 17.2 mg Q12H PRN PO Moderate constipation 08/26/17 19:00 Bisacodyl (Dulcolax Supp) 10 mg DAILY PRN RECTAL SEVERE CONSITIPATION 08/26/17 19:00 Lactulose (Lactulose Liq) 30 ml DAILY PRN PO SEVERE CONSITIPATION 08/26/17 19:00 Cholecalciferol (Vitamin D3) 1,000 units DAILY PO 08/27/17 09:00 09/01/17 10:42 Latanoprost (Xalatan 0.005% Opth Soln) 1 drop HS EACH EYE 08/26/17 21:00 08/30/17 20:05 Levothyroxine Sodium (Synthroid) 25 mcg DAILY@0600 PO 08/27/17 06:00 09/01/17 06:45 Labetalol HCl (Trandate Inj) 10 mg Q1HR PRN IV PUSH SBP>170, DBP>90, HR>65 08/26/17 19:00 08/28/17 09:30 Hydralazine HCl (Apresoline Inj) 10 mg Q1HR PRN IV PUSH SBP>170, DBP>90 08/26/17 19:00 08/31/17 12:54 Dextrose (D50w (Vial) Inj) 50 ml UNSCH PRN IV PUSH HYPOGLYCEMIA-SEE COMMENTS 08/26/17 19:00 Glucagon (Glucagon Inj) 1 mg UNSCH PRN OTHER HYPOGLYCEMIA-SEE COMMENTS 08/26/17 19:00 Insulin Human Regular (NovoLIN R SUPPLEMENTAL SCALE) 1 ACHS SLIDING SCALE SQ 08/26/17 21:00 08/31/17 22:33 Pantoprazole Sodium (Protonix) 40 mg DAILY PO 08/27/17 09:00 09/01/17 10:43 Sodium Chloride (NS Flush) 2 ml BID IV FLUSH 08/29/17 09:00 09/01/17 09:00 Sodium Chloride (NS Flush) 2 ml UNSCH PRN IV FLUSH FLUSH AFTER USING IV ACCESS 08/28/17 21:15 Pravastatin Sodium (Pravachol) 40 mg HS PO 08/29/17 21:00 08/31/17 21:04 Aspirin (Aspirin Chew) 324 mg DAILY CHEW 08/29/17 21:00 09/01/17 10:43 Dexamethasone Sodium Phosphate (Decadron Inj) 4 mg BID IV PUSH 08/30/17 21:00 09/01/17 13:45 Enalaprilat (Vasotec Inj) 1.25 mg Q6H PRN IV PUSH SBP>180, DBP>90 08/30/17 10:30 Miscellaneous (Pill Splitter) 1 ea UNSCH PRN OTHER SEE LABEL COMMENTS 08/31/17 12:45 Nifedipine (Procardia Xl) 30 mg HS PO 08/31/17 21:00 08/31/17 21:05 Levetriacetam (Keppra) 500 mg Q12HR PO 09/01/17 11:00 09/01/17 13:45 (Karen Boles) Current Medications Current Medications Dexamethasone Sodium Phosphate (Decadron Inj) 4 mg Q6HR IV PUSH Last administered on 08/30/17at 05:48; Start 08/27/17 at 00:00; Stop 08/30/17 at 10:28; Status DC Potassium Chloride (KCl) 20 meq ONCE ONCE PO Last administered on 08/26/17at 20: 10; Start 08/26/17 at 19:00; Stop 08/26/17 at 19:01; Status DC Sodium Chloride 1,000 ml @ 50 mls/hr Q20H IV Last administered on 09/01/17at 14 :04; Start 08/26/17 at 18:54; Stop 09/02/17 at 11:58; Status DC Sodium Chloride (NS Flush) 2 ml UNSCH PRN IV FLUSH FLUSH AFTER USING IV ACCESS ; Start 08/26/17 at 19:00; Stop 09/01/17 at 10:59; Status DC Sodium Chloride (NS Flush) 2 ml BID IV FLUSH Last administered on 08/31/17at 21: 06; Start 08/26/17 at 21:00; Stop 09/01/17 at 10:59; Status DC Acetaminophen (Tylenol) 650 mg Q6H PRN PO headache, fever Last administered on 08/31/17at 21:03; Start 08/26/17 at 19:00 Acetaminophen/ Hydrocodone Bitart ([place] 5-325 Mg) 1 tab Q4H PRN PO PAIN SCALE 1 TO 5 Last administered on 08/28/17at 03:44; Start 08/26/17 at 19:00 Morphine Sulfate (Morphine Inj) 2 mg Q3H PRN IV PUSH PAIN SCALE 6 TO 10 Last administered on 08/27/17at 12:09; Start 08/26/17 at 19:15 Ondansetron HCl (Zofran Inj) 4 mg Q6H PRN IV PUSH NAUSEA OR VOMITING Last administered on 08/26/17at 22:15; Start 08/26/17 at 19:00 Albuterol Sulfate (Albuterol Neb) 2.5 mg Q2HR NEB PRN INH SOB/WHEEZING; Start 08/26/17 at 19:00 Miscellaneous Information 1 Q361D XX ; Start 08/26/17 at 19:00 Chlorhexidine Gluconate (Chlorhexidine 2% Cloth) Taper DAILY@04 TOP ; Start 08/27 at 04:00; Stop 08/23/18 at 03:59 Chlorhexidine Gluconate (Chlorhexidine 2% Cloth) 3 pack UNSCH PRN TOP HYGIENIC CARE; Start 08/26/17 at 19:00 Senna/Docusate Sodium (Renita-Colace) 1 tab BID PO Last administered on at 08:36; Start 08/26/17 at 21:00 Magnesium Hydroxide (Milk Of Magnesia Liq) 30 ml Q12H PRN PO Mild constipation Last administered on 09/03/17at 09:30; Start 08/26/17 at 19:00 Sennosides (Senokot) 17.2 mg Q12H PRN PO Moderate constipation; Start 08/26/17 at 19:00 Bisacodyl (Dulcolax Supp) 10 mg DAILY PRN RECTAL SEVERE CONSITIPATION; Start at 19:00 Lactulose (Lactulose Liq) 30 ml DAILY PRN PO SEVERE CONSITIPATION; Start at 19:00 Cholecalciferol (Vitamin D3) 1,000 units DAILY PO Last administered on at 08:36; Start 08/27/17 at 09:00 Latanoprost (Xalatan 0.005% Opt Soln) 1 drop HS EACH EYE Last administered on 09/03/17at 23:04; Start 08/26/17 at 21:00 Levothyroxine Sodium (Synthroid) 25 mcg DAILY@0600 PO Last administered on 09/04at 05:54; Start 08/27/17 at 06:00 Nifedipine (Procardia Xl) 30 mg DAILY PO ; Start 08/27/17 at 09:00; Stop 08/27/17 at 09:00; Status DC Labetalol HCl (Trandate Inj) 10 mg Q1HR PRN IV PUSH SBP>170, DBP>90, HR>65 Last administered on 08/28/17at 09:30; Start 08/26/17 at 19:00; Stop 09/02/17 at 11 :58; Status DC Hydralazine HCl (Apresoline Inj) 10 mg Q1HR PRN IV PUSH SBP>170, DBP>90 Last administered on 08/31/17at 12:54; Start 08/26/17 at 19:00; Stop 09/02/17 at 11:58 ; Status DC Dextrose (D50w (Vial) Inj) 50 ml UNSCH PRN IV PUSH HYPOGLYCEMIA-SEE COMMENTS; Start 08/26/17 at 19:00 Glucagon (Glucagon Inj) 1 mg UNSCH PRN OTHER HYPOGLYCEMIA-SEE COMMENTS; Start 08/26/17 at 19:00 Insulin Human Regular (NovoLIN R SUPPLEMENTAL SCALE) 1 ACHS SLIDING SCALE SQ Last administered on 09/03/17at 17:50; Start 08/26/17 at 21:00 Potassium Chloride (KCl) 20 meq ONCE ONCE PO Last administered on 08/26/17at 22: 14; Start 08/26/17 at 21:00; Stop 08/26/17 at 21:01; Status DC Levetriacetam 500 mg/Sodium Chloride 105 ml @ 420 mls/hr Q12HR IV Last administered on 08/31/17at 21:06; Start 08/26/17 at 21:00; Stop 09/01/17 at 10:51 ; Status DC Pantoprazole Sodium (Protonix) 40 mg DAILY PO Last administered on 09/04/17at 08 :36; Start 08/27/17 at 09:00 Nifedipine (Procardia Xl) 30 mg DAILY@2100 PO Last administered on 08/27/17at 20: 02; Start 08/27/17 at 21:00; Stop 08/31/17 at 15:10; Status DC Nifedipine (Procardia Xl) 30 mg NOW ONCE PO Last administered on 08/26/17at 23: 03; Start 08/26/17 at 23:00; Stop 08/26/17 at 23:04; Status DC Lorazepam (Ativan Inj) 2 mg STK-MED ONCE .ROUTE ; Start 08/27/17 at 10:55; Stop 08/27/17 at 10:56; Status DC Lorazepam (Ativan Inj) 2 mg UNSCH X1 IV PUSH Last administered on 08/27/17at 10: 09; Start 08/27/17 at 11:00; Stop 08/27/17 at 18:00; Status DC Morphine Sulfate (Morphine Inj) 4 mg UNSCH X1 IV PUSH ; Start 08/27/17 at 11:00 ; Stop 08/27/17 at 18:00; Status DC Diatrizoate Meglum/ Diatrizoate Sod ( Gastro[place] Liq) 18 ml ONCE ONCE PO Last administered on 08/28/17at 12:05; Start 08/28/17 at 12:15; Stop 08/28/17 at 12: 16; Status DC Iohexol (Omnipaque 350 Inj) 95 ml STK-MED ONCE IVCONTRAST Last administered on 08/28/17at 15:59; Start 08/28/17 at 15:59; Stop 08/28/17 at 16:00; Status DC Gadodiamide (Omniscan Pf Inj) 20 ml STK-MED ONCE IVCONTRAST Last administered on 08/28/17at 20:27; Start 08/28/17 at 20:27; Stop 08/28/17 at 20:28; Status DC Aspirin (Aspirin Supp) 300 mg ONCE ONCE RECTAL Last administered on 08/28/17at 21:53; Start 08/28/17 at 21:15; Stop 08/28/17 at 21:32; Status DC Aspirin (Aspirin Supp) 300 mg DAILY RECTAL ; Start 08/29/17 at 09:00; Stop at 12:34; Status DC Sodium Chloride (NS Flush) 2 ml BID IV FLUSH Last administered on 09/04/17at 08: 37; Start 08/29/17 at 09:00 Sodium Chloride (NS Flush) 2 ml UNSCH PRN IV FLUSH FLUSH AFTER USING IV ACCESS ; Start 08/28/17 at 21:15 Pravastatin Sodium (Pravachol) 40 mg HS PO Last administered on 09/03/17at 20:38 ; Start 08/29/17 at 21:00 Potassium Chloride (KCl) 30 meq ONCE ONCE PO Last administered on 08/29/17at 09: 32; Start 08/29/17 at 07:15; Stop 08/29/17 at 07:19; Status DC Acetaminophen 100 ml @ 400 mls/hr ONCE ONCE IV Last administered on 08/29/17at 12:51; Start 08/29/17 at 12:45; Stop 08/29/17 at 12:59; Status DC Aspirin (Aspirin Chew) 324 mg DAILY CHEW Last administered on 09/04/17at 08:35; Start 08/29/17 at 21:00 Dexamethasone Sodium Phosphate (Decadron Inj) 4 mg BID IV PUSH Last administered on 09/02/17at 08:36; Start 08/30/17 at 21:00; Stop 09/02/17 at 11:58 ; Status DC Amlodipine Besylate (Norvasc) 2.5 mg ONCE ONCE PO Last administered on at 12:31; Start 08/30/17 at 10:45; Stop 08/30/17 at 10:46; Status DC Amlodipine Besylate (Norvasc) 2.5 mg DAILY PO Last administered on 08/31/17at 08 :35; Start 08/31/17 at 09:00; Stop 08/31/17 at 12:22; Status DC Enalaprilat (Vasotec Inj) 1.25 mg Q6H PRN IV PUSH SBP>180, DBP>90 Last administered on 09/02/17at 08:37; Start 08/30/17 at 10:30 Amlodipine Besylate (Norvasc) 2.5 mg BID PO ; Start 08/31/17 at 21:00; Stop 06/08 at 21:00; Status DC Miscellaneous (Pill Splitter) 1 ea UNSCH PRN OTHER SEE LABEL COMMENTS; Start at 12:45 Metoprolol Tartrate (Lopressor Inj) 2.5 mg ONCE ONCE IV PUSH Last administered on 08/31/17at 16:05; Start 08/31/17 at 15:15; Stop 08/31/17 at 15:16 ; Status DC Nifedipine (Procardia Xl) 30 mg HS PO Last administered on 09/03/17at 20:39; Start 08/31/17 at 21:00 Potassium Chloride (KCl) 30 meq NOW ONCE PO Last administered on 08/31/17at 16: 06; Start 08/31/17 at 16:00; Stop 08/31/17 at 16:01; Status DC Levetriacetam (Keppra) 500 mg Q12HR PO Last administered on 09/04/17at 08:35; Start 09/01/17 at 11:00 Dexamethasone (Decadron) 4 mg Q12HR PO Last administered on 09/03/17at 09:32; Start 09/02/17 at 21:00; Stop 09/03/17 at 15:14; Status DC Lisinopril (Prinivil) 10 mg Q12HR PO Last administered on 09/04/17at 08:36; Start 09/03/17 at 21:00 Dexamethasone (Decadron) 4 mg DAILY PO Last administered on 09/04/17at 08:36; Start 09/04/17 at 09:00 (Johann Mayorga MD) Medical Decision Making MDM Remarks 72 y/o female abnormal brain lesion found on MRI 08/26/17 [facility], unknown etiology , however not typical of breast metastases, s/p lumbar puncture for CSF cytology CSF cytology without evidence of malignancy worsened aphasia - acute infarct on MRI Brain with small petechial hemorrhage 08/28/17 (Karen Boles) Plan Plan Remarks cont Neurology mgt for CVA cont ASA cont PT, OT, ST discussed with patient CSF cytology results no further neurosurgical treatments planned, will sign off, call prn (Karen Boles) Attending Statement As above Continue supportive care The exam, history, and the medical decision-making described in the above note were completed with the assistance of the mid-level provider. I reviewed and agree with the findings presented. I attest that I had a [id number] encounter with the patient on the same day, and personally performed and documented my assessment and findings in the medical record. (Johann Mayorga MD) Karen Boles Sep 01, 2017 15:35 Johann Mayorga MD Sep 04, 2017 10:37
[2017-09-01] MEDS: NIFEdipine 30 MG SUSTAINED RELEASE TAB PO SCH (21:18)
[2017-09-01] MEDS: PRAVASTATIN SOD 40 MG TAB PO SCH (21:18)
[2017-09-02] VITALS (8 sets, daily range): BP systolic 139–186; BP diastolic 67–95; PULSE 45–75; RESP 16–20; TEMP 97.6–98.1; O2SAT 93–96
[2017-09-02] MEDS: CHLORHEXIDINE GLUCONATE 2 % 1 PACK (2 CLOTHS) TOP SCH (04:00)
[2017-09-02] MEDS: LATANOPROST 0.005% OPHT SOLN 2.5 ML BTL EACH EYE SCH ×2 (04:22→21:35)
[2017-09-02] MEDS: INSULIN NovoLIN REGULAR SUPPLEMENTAL SCALE SQ SCH ×5 (04:23→21:00)
[2017-09-02] MEDS: LEVOTHYROXINE SODIUM 25 MCG TAB PO SCH (06:23)
[2017-09-02] MEDS: DEXAMETHASONE SOD PHOS 4 MG/ML VIAL IV PUSH SCH (08:36)
[2017-09-02] MEDS: DOCUSATE SODIUM 50 MG/SENNA 8.6 MG TAB PO SCH ×2 (08:37→21:34)
[2017-09-02] MEDS: ASPIRIN 81 MG CHEW TAB CHEW SCH (08:37)
[2017-09-02] MEDS: CHOLECALCIFEROL (VIT D3) 1000 UNIT TAB PO SCH (08:37)
[2017-09-02] MEDS: levETIRAcetam 500 MG TAB PO SCH ×2 (08:37→21:34)
[2017-09-02] MEDS: PANTOPRAZOLE SOD 40 MG DELAYED RELEASE TAB PO SCH (08:37)
[2017-09-02] MEDS: SODIUM CHLORIDE 0.9% FLUSH 10 ML FLUSH IV FLUSH SCH ×2 (08:38→21:34)
--- NOTE | 2017-09-02 11:55 | HHI.PR ---
Subjective Remarks in chair. eating. she less aphasic today ambulated with PT but having balance issues Objective Vitals still with some expressive aphasia better. sitting in chair heart reg lung cta abd s/nt ext no edema Vital Signs Date Time Temp Pulse Resp B/P (MAP) Pulse Ox O2 Delivery O2 Flow Rate FiO2 09/02/17 08:35 97.6 64 18 183/81 (115) 96 09/02/17 04:00 97.6 64 20 186/80 (115) 95 09/02/17 03:36 45 09/02/17 00:01 46 09/02/17 00:00 98.1 62 20 173/75 (107) 96 09/01/17 21:19 70 172/74 (106) 09/01/17 20:50 96 Room Air 09/01/17 20:01 77 09/01/17 20:00 97.8 71 17 150/70 (96) 95 09/01/17 16:10 97.9 62 18 152/72 (98) 97 09/01/17 14:52 64 09/01/17 14:39 96 Room Air 09/01/17 12:09 97.3 60 18 160/77 (104) 97 Result Diagram: 09/01/17 0629 09/01/17 0629 A/P Problem List: (1) CVA (cerebral vascular accident) ICD Codes: I63.9 - Cerebral infarction, unspecified Status: Acute Plan: 1. acute left hemispheric cva. felt to be embolic or from hypercoagulable state aphasia/rue weakness improved 2. htn long discussion with daughter from [place]. nurse we reviewed mri images/labs/meds and direction of care discussed rehab wishes with CM does not meet Pal criteria per both Pal and FHCP daughter looking for snf today cont pt/ot/st very slow normalization of bp. cont current meds asa and statin neurology following. will d/c to rehab when ok with neuro still on iv decadron but no obvious masses so will wean off. converted to po keppra for sz prophylaxis ssi hypercoag panel pending (2) History of breast cancer in female ICD Codes: Z85.3 - Personal history of malignant neoplasm of breast Status: Chronic (3) Hypothyroidism ICD Codes: E03.9 - Hypothyroidism, unspecified Status: Chronic (4) Dyslipidemia ICD Codes: E78.5 - Hyperlipidemia, unspecified Status: Chronic (5) Hypertension ICD Codes: I10 - Essential (primary) hypertension Status: Chronic Problem Qualifiers (1) Hypothyroidism: Qualified Codes: E03.9 - Hypothyroidism, unspecified (2) Hypertension: Qualified Codes: I10 - Essential (primary) hypertension Fernie Sprague MD Sep 02, 2017 11:55
--- NOTE | 2017-09-02 11:59 | HM ---
Date Performed: 08/30/2017 Time Performed: 12:02:00 HOOKUP DATE: 08/30/17 12:02:00 PM Tue ANALYSIS START TIME: 08/30/2017 12:07:00 PM ANALYSIS END TIME: 08/31/2017 12:11:00 PM PATIENT AGE: 72 PATIENT HEIGHT PATIENT WEIGHT DRUG LIST PATIENT DIAGNOSIS: vasogenic edema TEST NARRATIVE: The patient's average heart rate was 64 BPM. Heart rates greater than 120 B PM were noted < 1% of the time. Heart rates less than 50 BPM were noted 23% of the time. No paus es exceeding 2.0 seconds were noted. 155 ventricular ectopics, which represented < 1% of the tota l beat count, were noted. The highest ventricular ectopic frequency occurred from 04:00 PM to 05:00 PM Tue. During this time 34 VE(s) occurred. Ventricular ectopics were observed as 155 isolated beat (s) only. No couplets or runs were noted. Some of the ventricular beats occurred in bigeminal cycle s. 266 supraventricular ectopics, which represented < 1% of the total beat count, were noted. Th e highest supraventricular ectopic frequency occurred from 04:00 AM to 05:00 AM Wed. During this jose e 101 SVE(s) occurred. No episodes of ST depression (defined as -1.0 mm or more) were noted in ch michael 1. No episodes of ST depression (defined as -1.0 mm or more) were noted in channel 2. No epis odes of ST depression (defined as -1.0 mm or more) were noted in channel 3. UNABLE TO MAINTAIN DIARY TEST INTERPRETATION: The patient undergoes a Holter monitor for stated reasons. The Holter monit or shows Sinus rhythm varying from 38 to 126 beats per minute. There are occasional PACs and PVCs noted. No abnormal rhyth ms are noted. No diary is provided. CONCLUSIONS: 1. A Holter monitor showing sinus rhythm varying fr om 38 to 126 beats per minute. 2. Occasional PACs and PVCs. 3. No singificant Dimitri or tachy arrhythm ias except as stated above. 4. No diary is provided so it is unknown as to whether the patient is sy mptomatic. Signed by : oRsie Dickens
[2017-09-02 19:54] LABS: FACTOR VIII(8) ACTIVITY 155 (50-180)
[2017-09-02] MEDS: NIFEdipine 30 MG SUSTAINED RELEASE TAB PO SCH (21:34)
[2017-09-02] MEDS: PRAVASTATIN SOD 40 MG TAB PO SCH (21:34)
[2017-09-02] MEDS: DEXAMETHASONE 4 MG TAB PO SCH (21:34)
[2017-09-03] VITALS: BP 147/69; PULSE 59; RESP 18; TEMP 98.3; O2SAT 95
[2017-09-03] MEDS: CHLORHEXIDINE GLUCONATE 2 % 1 PACK (2 CLOTHS) TOP SCH (00:08)
[2017-09-03 03:48] LABS: ANTI-THROMBIN III ACT 137 (80-120)
[2017-09-03 03:50] LABS: ACTIVATED PROTEIN C RESISTANCE 4.3 ratio (> OR = 2.1)
[2017-09-03 04:00] VITALS: BP 125/58; PULSE 59; RESP 16; TEMP 97.9; O2SAT 96
[2017-09-03] MEDS: LEVOTHYROXINE SODIUM 25 MCG TAB PO SCH (06:28)
[2017-09-03 07:52] LABS: DRVVT 1:1 MIX NOT CORRECTED (CORRECTED); DRVVT CONFIRM POSITIVE (NEGATIVE); HEXAGONAL PHASE CONFIRM ND (NEGATIVE)
[2017-09-03 08:00] VITALS: BP 181/80; PULSE 59; RESP 18; TEMP 97.6; O2SAT 97
[2017-09-03] MEDS: DOCUSATE SODIUM 50 MG/SENNA 8.6 MG TAB PO SCH ×2 (09:31→20:38)
[2017-09-03] MEDS: levETIRAcetam 500 MG TAB PO SCH ×2 (09:32→20:39)
[2017-09-03] MEDS: PANTOPRAZOLE SOD 40 MG DELAYED RELEASE TAB PO SCH (09:32)
[2017-09-03] MEDS: DEXAMETHASONE 4 MG TAB PO SCH (09:32)
[2017-09-03] MEDS: ASPIRIN 81 MG CHEW TAB CHEW SCH (09:33)
[2017-09-03] MEDS: CHOLECALCIFEROL (VIT D3) 1000 UNIT TAB PO SCH (09:33)
[2017-09-03] MEDS: SODIUM CHLORIDE 0.9% FLUSH 10 ML FLUSH IV FLUSH SCH ×2 (09:34→20:44)
[2017-09-03] MEDS: INSULIN NovoLIN REGULAR SUPPLEMENTAL SCALE SQ SCH ×4 (09:35→20:41)
[2017-09-03 12:00] VITALS: BP 155/74; PULSE 50; RESP 18; TEMP 97.5; O2SAT 96
--- NOTE | 2017-09-03 13:02 | HHI.PR ---
Review/Management Diagnosis - Ischemic stroke, left fronto-parietal lobe - The patient's neurologic assessment revealed receptive dysphasia with abnormal naming [anomia], abnormal comprehension, right facial palsy and subtle right-sided hemiparesis with an MRI that revealed evidence of multiple restricted diffusion areas in the left frontal parietal lobe, unlikely to be related to metastatic lesions in the brain. In the SWI sequence there is punctate petechial hemorrhages in the posterior parietal lobe of the left side. - There is left MCA narrowing at the M1 segment likely thromboembolic in nature. - I explained at length to the patient, her sister and daughter, the likely diagnosis and future prognosis of dysphasia that will need intensive speech therapy. - At this time there is no role of anticoagulation given the petechial hemorrhage. - There is strong evidence that antiplatelets and anticoagulants should be used with caution because of risk of extensive bleeding. Plan - Neuro checks Q4h - Speech therapy, physical and occupational therapy, recommendations are appreciated. - DVT prophylaxis. - A family meeting, at length, was made with the daughter.I answered their questions and addressed their concerns to the best of my knowledge - No further neurologic work up is needed at this time - Patient will need intense rehab speech and OT/ therapy Diagnosis/Plan: Subjective Subjective Comments No acute events reported Patient lays in bed with daughter and aunt at bed side Seems less energetic, daughter relates to "not being able to sleep well last night, worked with PT/OT this morning and has had a shower" Patient has no new complaints Active Medications Current Medications Medications (Trade) Dose Ordered Sig/Rkistal Route Start Time Stop Time Status Last Admin (Tylenol) 650 mg Q6H PRN PO 08/26/17 19:00 08/31/17 21:03 ([place] 5-325 Mg) 1 tab Q4H PRN PO 08/26/17 19:00 08/28/17 03:44 (Morphine Inj) 2 mg Q3H PRN IV PUSH 08/26/17 19:15 08/27/17 12:09 (Zofran Inj) 4 mg Q6H PRN IV PUSH 08/26/17 19:00 08/26/17 22:15 (Albuterol Neb) 2.5 mg Q2HR NEB PRN INH 08/26/17 19:00 Miscellaneous Information 1 Q361D XX 08/26/17 19:00 (Chlorhexidine 2% Cloth) Taper DAILY@04 TOP 08/27/17 04:00 08/23/18 03:59 (Chlorhexidine 2% Cloth) 3 pack UNSCH PRN TOP 08/26/17 19:00 (Renita-Colace) 1 tab BID PO 08/26/17 21:00 09/03/17 09:31 (Milk Of Magnesia Liq) 30 ml Q12H PRN PO 08/26/17 19:00 09/03/17 09:30 (Senokot) 17.2 mg Q12H PRN PO 08/26/17 19:00 (Dulcolax Supp) 10 mg DAILY PRN RECTAL 08/26/17 19:00 (Lactulose Liq) 30 ml DAILY PRN PO 08/26/17 19:00 (Vitamin D3) 1,000 units DAILY PO 08/27/17 09:00 09/03/17 09:33 (Xalatan 0.005% Opth Soln) 1 drop HS EACH EYE 08/26/17 21:00 09/02/17 21:35 (Synthroid) 25 mcg DAILY@0600 PO 08/27/17 06:00 09/03/17 06:28 (D50w (Vial) Inj) 50 ml UNSCH PRN IV PUSH 08/26/17 19:00 (Glucagon Inj) 1 mg UNSCH PRN OTHER 08/26/17 19:00 (NovoLIN R SUPPLEMENTAL SCALE) 1 ACHS SLIDING SCALE SQ 08/26/17 21:00 09/02/17 21:00 (Protonix) 40 mg DAILY PO 08/27/17 09:00 09/03/17 09:32 (NS Flush) 2 ml BID IV FLUSH 08/29/17 09:00 09/03/17 09:34 (NS Flush) 2 ml UNSCH PRN IV FLUSH 08/28/17 21:15 (Pravachol) 40 mg HS PO 08/29/17 21:00 09/02/17 21:34 (Aspirin Chew) 324 mg DAILY CHEW 08/29/17 21:00 09/03/17 09:33 (Vasotec Inj) 1.25 mg Q6H PRN IV PUSH 08/30/17 10:30 09/02/17 08:37 (Pill Splitter) 1 ea UNSCH PRN OTHER 08/31/17 12:45 (Procardia Xl) 30 mg HS PO 08/31/17 21:00 09/02/17 21:34 (Keppra) 500 mg Q12HR PO 09/01/17 11:00 09/03/17 09:32 (Decadron) 4 mg Q12HR PO 09/02/17 21:00 09/03/17 09:32 Allergies Allergies Coded Allergies No Known Allergies (Verified Allergy, Unknown, 08/26/17) Review of Systems All other ROS: ROS reviewed as documented in chart Exam I&O / VS Vital Signs Date Time Temp Pulse Resp B/P (MAP) Pulse Ox O2 Delivery O2 Flow Rate FiO2 09/03/17 08:00 97.6 59 18 181/80 (113) 97 09/03/17 04:00 97.9 59 16 125/58 (80) 96 09/03/17 00:00 98.3 59 18 147/69 (95) 95 09/02/17 20:00 98.1 75 19 178/95 (122) 95 09/02/17 20:00 72 09/02/17 16:00 98.1 58 16 139/67 (91) 95 Exam Comments General: Awake, alert, dysphasia, pleasant, not in acute distress. HEENT: Atraumatic, normocephalic. Intact hearing. Intact vision. Neck: Supple. Trachea in the midline. No signs of meningeal irritation. Cardiovascular: Regular rate and rhythm. Respiratory: Clear to auscultation, no wheezes. Gastrointestinal: Soft abdomen, nontender Neurological: Awake, alert, expressive dysphasia with abnormal naming [pen as pencil, similar to yesterday, unable to identify/ watch named as 'pencil'] abnormal comprehension, intact repetition [as opposed to the previous encounter] , perseveration of words. Right facial palsy [mild] . No nystagmus. No ptosis. The patient is right-handed, however, during the encounter there is still some preference to use the left upper extremity. Intact sensation throughout. [id number]-[id number] is intact. No abnormal movements. Reflexes 1+ bilateral symmetrical. Plantars are bilaterally downgoing. Psychiatric: Cooperative, given her dysphasic symptoms, not agitated. No hallucinations, Objective Micro and Labs Date/Time Source Procedure Growth Status 08/28/17 21:30 Blood Peripheral Aerobic Blood Culture - Final NO GROWTH IN 5 DAYS Complete 08/28/17 21:30 Blood Peripheral Anaerobic Blood Culture - Final NO GROWTH IN 5 DAYS Complete 08/27/17 11:21 Cerebral Spinal Fluid Lumbar Puncture Fungal Smear - Final NO FUNGAL ELEMENTS SEEN. Resulted 08/27/17 11:21 Cerebral Spinal Fluid Lumbar Puncture Fungal Culture Pending Resulted 08/28/17 18:44 Nasal Aspirate Influenza Types A,B Antigen (IRENE) - Final NEGATIVE FOR FLU A AND B ANTIGEN.... Complete Frank Jamil MD Sep 03, 2017 13:02
--- NOTE | 2017-09-03 14:18 | HHI.PR ---
Subjective Remarks Pt is a 72 y/o F who suffered Ischemic stroke, left fronto-parietal lobe Pt continues to exhibit expressive aphasia. Objective Vitals Vital Signs Date Time Temp Pulse Resp B/P (MAP) Pulse Ox O2 Delivery O2 Flow Rate FiO2 09/03/17 08:00 97.6 59 18 181/80 (113) 97 09/03/17 04:00 97.9 59 16 125/58 (80) 96 09/03/17 00:00 98.3 59 18 147/69 (95) 95 09/02/17 20:00 98.1 75 19 178/95 (122) 95 09/02/17 20:00 72 09/02/17 16:00 98.1 58 16 139/67 (91) 95 Result Diagram: 09/01/1762809/01/17628 Imaging Last Impressions Lower Extremity Ultrasound 08/31/17 0000 Signed Impressions: Service Date/Time: Thursday, August 31, 2017 15:31 - CONCLUSION: No DVT in either lower extremity. Aditya Rojas MD Head CT 08/31/17 0000 Signed Impressions: Service Date/Time: Thursday, August 31, 2017 07:38 - CONCLUSION: Evolving multifocal infarction left cerebral hemisphere. No midline shift. Aditya Rojas MD Neck Magnetic Resonance Angiography 08/28/17 0000 Signed Impressions: Service Date/Time: Monday, August 28, 2017 20:12 - CONCLUSION: No evidence of significant atherosclerotic vascular disease or hemodynamically significant stenotic or occlusive lesions. Dominant left vertebral. Small right vertebral terminating in PICA Ladarius Perez MD Head Magnetic Resonance Angiography 08/28/17 0000 Signed Impressions: Service Date/Time: Monday, August 28, 2017 20:12 - CONCLUSION: 1. Markedly restricted flow in the left middle cerebral artery with high-grade stenosis and possible intraluminal filling defect in the M1 segment. 2. Intact right cerebral and vertebral basilar circulation. Ladarius Preez MD Chest CT 08/28/17 0000 Signed Impressions: Service Date/Time: Monday, August 28, 2017 15:38 - CONCLUSION: 1. No evidence of acute thoracic abnormality. No masses are identified. No evidence of metastatic disease. Galen Melgar MD Brain MRI 08/28/17 0000 Signed Impressions: Service Date/Time: Monday, August 28, 2017 20:12 - CONCLUSION: Abnormal T2 hyperintensity with restricted diffusion in the left cerebral hemisphere as described above characteristic of acute to subacute cerebral infarct. Small foci of magnetic susceptibility in the left frontal and parietal lobes characteristic of minimal petechial hemorrhage. No conclusive findings of metastatic disease. Ladarius Perez MD Abdomen/Pelvis CT 08/28/17 0000 Signed Impressions: Service Date/Time: Monday, August 28, 2017 15:38 - CONCLUSION: 1. No evidence of acute abdominal or pelvic process. No masses are identified. 2. Diverticulosis without evidence of diverticulitis. Galen Melgar MD Chest X-Ray 08/27/17 0000 Signed Impressions: Service Date/Time: Sunday, August 27, 2017 04:12 - CONCLUSION: No acute cardiopulmonary disease identified. Rajan Holcomb MD Objective Remarks GENERAL: This is a well-nourished, well-developed patient, in no apparent distress. CARDIOVASCULAR: Regular rate and rhythm without murmurs, gallops, or rubs. RESPIRATORY: Clear to auscultation. Breath sounds equal bilaterally. No wheezes , rales, or rhonchi. GASTROINTESTINAL: Abdomen soft, non-tender, nondistended. Normal active bowel sounds MUSCULOSKELETAL: Extremities without clubbing, cyanosis, or edema. NEURO: Alert & Oriented x3, some degree of expressive aphasia noted. A/P Problem List: (1) CVA (cerebral vascular accident) ICD Codes: I63.9 - Cerebral infarction, unspecified Status: Acute Plan: 1. acute left hemispheric cva. felt to be embolic or from hypercoagulable state aphasia/rue weakness improved 2. htn - imaging studies reviewed - Case d/w Dr. Jamil 09/03/17 - Per Neurology, Dr. Jamil, pt cleared for discharge - will discharge to SNF - Pt will need continued PT/ST/OT - slow normalization of bp. - nifedipine ER 30mg qhs, observe trend - start lisinopril 10mg BID - asa and statin - PO decadron, will taper to off - PO keppra for seizure prophylaxis - hypercoag panel pending - case d/w pt/daughter (09/03) at bedside, all questions addressed as completely as possible - DVT prophylaxis - supportive care - anticipate d/c to SNF in 1-2 days (2) Bradycardia ICD Codes: R00.1 - Bradycardia, unspecified Plan: - telemetry reviewed: sinus bradycardia - HR usually in 50s, occasionally goes into the 40s - holter results noted - Pt NOT on BB - Case reviewed with Cardiology, Dr. Sorenson. He will consult. (3) History of breast cancer in female ICD Codes: Z85.3 - Personal history of malignant neoplasm of breast Status: Chronic (4) Hypothyroidism ICD Codes: E03.9 - Hypothyroidism, unspecified Status: Chronic (5) Dyslipidemia ICD Codes: E78.5 - Hyperlipidemia, unspecified Status: Chronic (6) Hypertension ICD Codes: I10 - Essential (primary) hypertension Status: Chronic Problem Qualifiers (1) Hypothyroidism: Qualified Codes: E03.9 - Hypothyroidism, unspecified (2) Hypertension: Qualified Codes: I10 - Essential (primary) hypertension Charlie Littlejohn DO Sep 03, 2017 14:18
[2017-09-03 16:00] VITALS: BP 161/72; PULSE 63; RESP 17; TEMP 97.9; O2SAT 93
[2017-09-03 20:00] VITALS: BP 159/77; PULSE 60; PULSE 66; RESP 18; TEMP 97.9; O2SAT 95
[2017-09-03] MEDS: PRAVASTATIN SOD 40 MG TAB PO SCH (20:38)
[2017-09-03] MEDS: NIFEdipine 30 MG SUSTAINED RELEASE TAB PO SCH (20:39)
[2017-09-03] MEDS: LISINOPRIL 10 MG TAB PO SCH (20:40)
[2017-09-03] MEDS: LATANOPROST 0.005% OPHT SOLN 2.5 ML BTL EACH EYE SCH (23:04)
[2017-09-04] VITALS (9 sets, daily range): BP systolic 124–155; BP diastolic 58–74; PULSE 49–70; RESP 18–20; TEMP 97.4–98.3; O2SAT 93–96
[2017-09-04] MEDS: CHLORHEXIDINE GLUCONATE 2 % 1 PACK (2 CLOTHS) TOP SCH (01:50)
[2017-09-04] MEDS: LEVOTHYROXINE SODIUM 25 MCG TAB PO SCH (05:54)
[2017-09-04] MEDS: levETIRAcetam 500 MG TAB PO SCH ×2 (08:35→20:44)
[2017-09-04] MEDS: ASPIRIN 81 MG CHEW TAB CHEW SCH (08:35)
[2017-09-04] MEDS: PANTOPRAZOLE SOD 40 MG DELAYED RELEASE TAB PO SCH (08:36)
[2017-09-04] MEDS: CHOLECALCIFEROL (VIT D3) 1000 UNIT TAB PO SCH (08:36)
[2017-09-04] MEDS: LISINOPRIL 10 MG TAB PO SCH ×2 (08:36→20:44)
[2017-09-04] MEDS: DEXAMETHASONE 4 MG TAB PO SCH (08:36)
[2017-09-04] MEDS: DOCUSATE SODIUM 50 MG/SENNA 8.6 MG TAB PO SCH ×2 (08:36→20:44)
[2017-09-04] MEDS: INSULIN NovoLIN REGULAR SUPPLEMENTAL SCALE SQ SCH ×4 (08:37→21:00)
[2017-09-04] MEDS: SODIUM CHLORIDE 0.9% FLUSH 10 ML FLUSH IV FLUSH SCH ×2 (08:37→20:43)
--- NOTE | 2017-09-04 10:51 | MB ---
cc: STEPH BLACKMON DATE OF CONSULTATION: 09/04/2017 REASON FOR CONSULTATION: Bradycardia. HISTORY OF PRESENT ILLNESS This is a 72-year-old female with past medical history for papillary breast cancer status post bilateral mastectomy, hypertension, hyperlipidemia. She presented to the medical center with abnormality on MRI and associated right-sided weakness. The patient was diagnosed with stroke and MRI showed left cerebral hemisphere, acute to subacute cerebral infarct. The patient had Holter monitor placed. She is noted on telemetry to have heart rates generally in the 40s and 50s beats per minute range. On Holter monitoring it did register down as low as 38 beats per minute. The patient denies any prior history of known heart disease. Denies any symptoms. She does not necessarily recall that particular event but most of the time she is lying in bed, sometimes dozing off and sleeping. PAST MEDICAL HISTORY 1. Hypertension. 2. Hyperlipidemia. 3. Hyperthyroidism. 4. Papillary intraductal breast cancer. MEDICATIONS 1. Vitamin D. 2. Nifedipine. 3. Levothyroxine at home. FAMILY HISTORY: Denies any family history of sudden cardiac . SOCIAL HISTORY Denies any alcohol, tobacco or drug use. REVIEW OF SYSTEMS 12-point review of some was performed, negative unless otherwise noted in the history of present illness. PHYSICAL EXAMINATION VITAL SIGNS: Temperature is 97. Heart rate 57, blood pressure 138/72 mmHg. General: Alert and oriented x3 in no acute distress. HEENT: Exam shows pupils reactive to light, extraocular movements intact. No elevation in jugular venous distension. No thyromegaly or lymphadenopathy. No carotid bruits. Lungs: Clear to auscultation bilaterally. Cardiovascular: Regular rate and rhythm. No murmurs, rubs, or gallops. Abdomen: Non-tender, non-distended. Good bowel sounds. No hepatosplenomegaly. Extremities: No clubbing, cyanosis or edema. Good peripheral pulses. Neurologic: Cranial nerves intact. There is some degree of expressive aphasia noted, and right upper extremity weakness. LABORATORY DATA: WBC 9.5, hemoglobin 11.8, platelet counts 315, INR is 1, sodium 140, potassium 3.6, BUN is 21, creatinine 0.83. ASSESSMENT 1. Bradycardia. 2. Stroke. 3. Hypertension, hyperlipidemia, breast cancer. PLAN The patient is asymptomatic with these bradycardiac episodes. I reviewed the telemetry myself. There is no high degree AV block. No atrial arrhythmias such as atrial fibrillation or flutter which would predispose her to potential cardioembolic event. There is no beta-jennie, calcium-channel jennie on board that would potentially be a culprit for her bradycardiac episodes. Thyroid has been tested. I suspect that this is likely just secondary to increased vagal tone as she has originally had a stroke. She has been lying in bed without ambulation and sleeping. As long as she is not symptomatic, even heart rates in the 40s and 50 beats per minute range, while lying in bed comfortable and sleeping would not be an indication for a permanent pacemaker from a cardiac perspective for stroke. May consider 21 day event monitor as an outpatient rule out atrial fibrillation as a cardioembolic etiology through her stroke. Will sign off. Call if any further questions. Okay from cardiology to be discharged. MD BRYCE Barnett/MELINA /9:18 AM /10:04 AM
[2017-09-04 11:52] LABS: BETA2-GLYCOPROTEIN IGA <9 SAU (< OR = 20); BETA2-GLYCOPROTEIN IGG 9 SGU (< OR = 20); BETA2-GLYCOPROTEIN IGM <9 SMU (< OR = 20)
[2017-09-04 13:42] LABS: PROTEIN C ACTIVITY 169 % (70 - 150); PROTEIN S ACTIVITY 156 % (65 - 160)
[2017-09-04 15:51] LABS: PHOSPHATIDYLSERINE AB IGA LESS THAN 20.0 U/mL (< 20.0); PHOSPHATIDYLSERINE AB IGG LESS THAN 10.0 U/mL (< 11.0); PHOSPHATIDYLSERINE AB IGM LESS THAN 25.0 U/mL (< 25.0)
[2017-09-04] MEDS: LATANOPROST 0.005% OPHT SOLN 2.5 ML BTL EACH EYE SCH (20:43)
[2017-09-04] MEDS: PRAVASTATIN SOD 40 MG TAB PO SCH (20:44)
[2017-09-04] MEDS: NIFEdipine 30 MG SUSTAINED RELEASE TAB PO SCH (20:44)
[2017-09-05] VITALS (8 sets, daily range): BP systolic 135–164; BP diastolic 60–83; PULSE 54–69; RESP 18; TEMP 97.7–99.2; O2SAT 95–96
[2017-09-05] MEDS: CHLORHEXIDINE GLUCONATE 2 % 1 PACK (2 CLOTHS) TOP SCH (04:00)
[2017-09-05] MEDS: LEVOTHYROXINE SODIUM 25 MCG TAB PO SCH (06:20)
[2017-09-05] MEDS: LISINOPRIL 10 MG TAB PO SCH ×2 (09:00→20:53)
[2017-09-05] MEDS: ASPIRIN 81 MG CHEW TAB CHEW SCH (09:00)
[2017-09-05] MEDS: DEXAMETHASONE 4 MG TAB PO SCH (09:00)
[2017-09-05] MEDS: PANTOPRAZOLE SOD 40 MG DELAYED RELEASE TAB PO SCH (09:00)
[2017-09-05] MEDS: CHOLECALCIFEROL (VIT D3) 1000 UNIT TAB PO SCH (09:00)
[2017-09-05] MEDS: DOCUSATE SODIUM 50 MG/SENNA 8.6 MG TAB PO SCH ×2 (09:00→20:53)
[2017-09-05] MEDS: levETIRAcetam 500 MG TAB PO SCH ×2 (09:00→20:52)
[2017-09-05] MEDS: SODIUM CHLORIDE 0.9% FLUSH 10 ML FLUSH IV FLUSH SCH ×2 (09:01→20:52)
[2017-09-05] MEDS: INSULIN NovoLIN REGULAR SUPPLEMENTAL SCALE SQ SCH ×5 (09:01→21:00)
--- NOTE | 2017-09-05 09:44 | HHI.PR ---
Subjective Remarks LATE ENTRY NOTE FOR 09/04/17 Pt looking well today and speech seems to be a bit better today Objective Vitals Vital Signs Date Time Temp Pulse Resp B/P (MAP) Pulse Ox O2 Delivery O2 Flow Rate FiO2 09/05/17 08:26 97.8 58 18 145/83 (103) 96 09/05/17 04:00 97.7 58 18 152/71 (98) 96 09/05/17 00:00 98.2 65 18 164/77 (106) 96 09/04/17 23:00 65 09/04/17 20:00 98.1 59 20 144/62 (89) 93 09/04/17 16:00 97.7 67 18 152/70 (97) 95 09/04/17 16:00 58 09/04/17 12:00 97.6 58 18 137/63 (87) 96 09/05/17 09/05/17 09/06/17 15:00 23:00 07:00 # Voids 0 # Bowel Movements 0 Result Diagram: 09/01/1729 09/01/17 0629 Imaging Last Impressions Lower Extremity Ultrasound 08/31/17 0000 Signed Impressions: Service Date/Time: Thursday, August 31, 2017 15:31 - CONCLUSION: No DVT in either lower extremity. Aditya Rojas MD Head CT 08/31/17 0000 Signed Impressions: Service Date/Time: Thursday, August 31, 2017 07:38 - CONCLUSION: Evolving multifocal infarction left cerebral hemisphere. No midline shift. Aditya Rojas MD Neck Magnetic Resonance Angiography 08/28/17 0000 Signed Impressions: Service Date/Time: Monday, August 28, 2017 20:12 - CONCLUSION: No evidence of significant atherosclerotic vascular disease or hemodynamically significant stenotic or occlusive lesions. Dominant left vertebral. Small right vertebral terminating in PICA Ladarius Perez MD Head Magnetic Resonance Angiography 08/28/17 0000 Signed Impressions: Service Date/Time: Monday, August 28, 2017 20:12 - CONCLUSION: 1. Markedly restricted flow in the left middle cerebral artery with high-grade stenosis and possible intraluminal filling defect in the M1 segment. 2. Intact right cerebral and vertebral basilar circulation. Ladarius Perez MD Chest CT 08/28/17 0000 Signed Impressions: Service Date/Time: Monday, August 28, 2017 15:38 - CONCLUSION: 1. No evidence of acute thoracic abnormality. No masses are identified. No evidence of metastatic disease. Galen Melgar MD Brain MRI 08/28/17 0000 Signed Impressions: Service Date/Time: Monday, August 28, 2017 20:12 - CONCLUSION: Abnormal T2 hyperintensity with restricted diffusion in the left cerebral hemisphere as described above characteristic of acute to subacute cerebral infarct. Small foci of magnetic susceptibility in the left frontal and parietal lobes characteristic of minimal petechial hemorrhage. No conclusive findings of metastatic disease. Ladarius Perez MD Abdomen/Pelvis CT 08/28/17 0000 Signed Impressions: Service Date/Time: Monday, August 28, 2017 15:38 - CONCLUSION: 1. No evidence of acute abdominal or pelvic process. No masses are identified. 2. Diverticulosis without evidence of diverticulitis. Galen Melgar MD Chest X-Ray 08/27/17 0000 Signed Impressions: Service Date/Time: Sunday, August 27, 2017 04:12 - CONCLUSION: No acute cardiopulmonary disease identified. Rajan Holcomb MD Objective Remarks General: NAD, Awake and alert Chest: CTA Cardiac: Regular, bradycardic Abd: +BS, soft ND/NT Ext: No edema Neuro: Expressive aphasia A/P Problem List: (1) CVA (cerebral vascular accident) ICD Codes: I63.9 - Cerebral infarction, unspecified Status: Acute Plan: 1. acute left hemispheric cva. felt to be embolic or from hypercoagulable state aphasia/rue weakness improved 2. htn - imaging studies reviewed - Case d/w Dr. Jamil 09/03/17 - Per Neurology, Dr. Jamil, pt cleared for discharge - will discharge to SNF - Pt will need continued PT/ST/OT - slow normalization of bp. - BP trend is somewhat improved on nifedipine ER 30mg qhs and lisinopril 10mg BID - asa and statin - PO decadron, will taper to off - PO keppra for seizure prophylaxis - hypercoag panel pending - case d/w pt/daughter (09/03) at bedside, all questions addressed as completely as possible - DVT prophylaxis - supportive care - anticipate d/c to SNF tomorrow (2) Bradycardia ICD Codes: R00.1 - Bradycardia, unspecified Plan: - telemetry reviewed: sinus bradycardia - HR usually in 50s, occasionally goes into the 40s - Holter results noted - Pt NOT on BB - Case reviewed with Cardiology, Dr. Sorenson. - Appreciate Cardiology consultation. Per Cardiology notes its felt that the bradycardia may be secondary to increased vagal tone and as long as the pt is not symptomatic with HR in the 40-50s there is no need for permanent pacemaker from cardiac perspective - Could consider 21 days event monitor as an outpt to r/o A. fib as a cardioembolic etiology for the CVA (3) History of breast cancer in female ICD Codes: Z85.3 - Personal history of malignant neoplasm of breast Status: Chronic (4) Hypothyroidism ICD Codes: E03.9 - Hypothyroidism, unspecified Status: Chronic (5) Dyslipidemia ICD Codes: E78.5 - Hyperlipidemia, unspecified Status: Chronic (6) Hypertension ICD Codes: I10 - Essential (primary) hypertension Status: Chronic Assessment and Plan Patient examined. Assessment and plan formulated with Lindsay Motta PA-C. I agree with the above. Problem Qualifiers (1) CVA (cerebral vascular accident): Qualified Codes: I63.9 - Cerebral infarction, unspecified (2) Hypothyroidism: Qualified Codes: E03.9 - Hypothyroidism, unspecified (3) Hypertension: Qualified Codes: I10 - Essential (primary) hypertension Lindsay Motta Sep 05, 2017 09:44 Charlie Littlejohn DO Sep 05, 2017 22:24
[2017-09-05] MEDS ORDERED: NOVORP2 SQ (18:17)
[2017-09-05] MEDS ORDERED: PRAV40TA PO (18:17)
[2017-09-05] MEDS ORDERED: LISI10TA3 PO (18:17)
[2017-09-05] MEDS ORDERED: LEVE500 PO (18:17)
[2017-09-05] MEDS ORDERED: PANT40TA3 PO (18:17)
[2017-09-05] MEDS ORDERED: DEXA4TAB PO (18:17)
[2017-09-05] MEDS ORDERED: NIFE30TA8 PO (18:17)
--- NOTE | 2017-09-05 18:23 | HHI.DS ---
Discharge Summary Admission Date Aug 26, 2017 at 18:56 Discharge Date: Sep 06, 2017 Admitting Diagnosis Vasogenic edema (1) CVA (cerebral vascular accident) Diagnosis: Principal ICD Codes: I63.9 - Cerebral infarction, unspecified Status: Acute (2) Bradycardia Diagnosis: Principal ICD Codes: R00.1 - Bradycardia, unspecified (3) History of breast cancer in female Diagnosis: Secondary ICD Codes: Z85.3 - Personal history of malignant neoplasm of breast Status: Chronic (4) Hypothyroidism Diagnosis: Secondary ICD Codes: E03.9 - Hypothyroidism, unspecified Status: Chronic (5) Dyslipidemia Diagnosis: Secondary ICD Codes: E78.5 - Hyperlipidemia, unspecified Status: Chronic (6) Hypertension Diagnosis: Secondary ICD Codes: I10 - Essential (primary) hypertension Status: Chronic Consultants Dr. Mayorga, neurosurgeon Dr. Pyle, Oncology Dr. Jamil, Neurology Brief History This is a 72-year-old female. Date of admission 08/26/2017. 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 She has a history of hypercalcemia status post partial parathyroidectomy. Patient presents to [facility] [address] as a direct admit from doctor's office after an abnormal MRI. Patient has been experiencing headaches/occipitally based without vision changes for the past month. She has had gait imbalance disorder. She denies any seizure activity. She has not followed. She complains of headache as a 3 out of 10. Diffuse. Without radiation. Patient is CT yesterday without contrast and today had an MRI which I was able to review the report of. This revealed views a day continue with cortical enhancement and restricted diffusion in the left temporal occipital lobes. A smaller blister is seen in the left frontal and parietal lobes. Very small punctate hemorrhage in the left posterior parietal lobe. Dr. Mayorga/neurosurgery is contacted. Medicine oncology was consulted. We are asked to admit the patient. Patient received 4 mg dexamethasone IV is currently on levetiracetam 500 mill grams IV twice a day. Patient currently awake and alert with only significant neurological abnormality on examination abnormal finger to nose bilaterally. CBC/BMP: 09/01/17 0629 09/01/17 0629 Imaging Last Impressions Lower Extremity Ultrasound 09/05/17 0000 Signed Impressions: Service Date/Time: Tuesday, September 05, 2017 19:16 - CONCLUSION: Normal examination. Ronn Jean Baptiste Jr., MD Head CT 08/31/17 0000 Signed Impressions: Service Date/Time: Thursday, August 31, 2017 07:38 - CONCLUSION: Evolving multifocal infarction left cerebral hemisphere. No midline shift. Aditya Rojas MD Neck Magnetic Resonance Angiography 08/28/17 0000 Signed Impressions: Service Date/Time: Monday, August 28, 2017 20:12 - CONCLUSION: No evidence of significant atherosclerotic vascular disease or hemodynamically significant stenotic or occlusive lesions. Dominant left vertebral. Small right vertebral terminating in PICA Ladarius Perez MD Head Magnetic Resonance Angiography 08/28/17 0000 Signed Impressions: Service Date/Time: Monday, August 28, 2017 20:12 - CONCLUSION: 1. Markedly restricted flow in the left middle cerebral artery with high-grade stenosis and possible intraluminal filling defect in the M1 segment. 2. Intact right cerebral and vertebral basilar circulation. Ladarius Perez MD Chest CT 08/28/17 Signed Impressions: Service Date/Time: Monday, August 28, 2017 15:38 - CONCLUSION: 1. No evidence of acute thoracic abnormality. No masses are identified. No evidence of metastatic disease. Galen Melgar MD Brain MRI 08/28/17 Signed Impressions: Service Date/Time: Monday, August 28, 2017 20:12 - CONCLUSION: Abnormal T2 hyperintensity with restricted diffusion in the left cerebral hemisphere as described above characteristic of acute to subacute cerebral infarct. Small foci of magnetic susceptibility in the left frontal and parietal lobes characteristic of minimal petechial hemorrhage. No conclusive findings of metastatic disease. Ladarius Perez MD Abdomen/Pelvis CT 08/28/17 0000 Signed Impressions: Service Date/Time: Monday, August 28, 2017 15:38 - CONCLUSION: 1. No evidence of acute abdominal or pelvic process. No masses are identified. 2. Diverticulosis without evidence of diverticulitis. Galen Melgar MD Chest X-Ray 08/27/17 0000 Signed Impressions: Service Date/Time: Sunday, August 27, 2017 04:12 - CONCLUSION: No acute cardiopulmonary disease identified. Rajan Holcomb MD PE at Discharge General: NAD, Awake and alert Chest: CTA Cardiac: Regular, bradycardic Abd: +BS, soft ND/NT Ext: No edema Neuro: Expressive aphasia Hospital Course (1) CVA (cerebral vascular accident) ICD Codes: I63.9 - Cerebral infarction, unspecified Status: Acute Plan: 1. acute left hemispheric cva. felt to be embolic or from hypercoagulable state aphasia/rue weakness improved 2. htn - imaging studies reviewed - Case d/w Dr. Jamil 09/03/17 - Per Neurology, Dr. Jamil, pt cleared for discharge - will discharge to SNF - Pt will need continued PT/ST/OT - slow normalization of bp. - BP trend is improving on nifedipine ER 30mg qhs and lisinopril 10mg BID - asa and statin - PO decadron, will taper to off - PO keppra for seizure prophylaxis - hypercoag panel pending - case d/w pt/daughter (09/05) at bedside, all questions addressed - daughter concerned about possible swelling at RLE and request repeat RLE US - RLE US (09/05) --> NO DVT - pt will d/c to [facility] 09/06 for PT, OT, ST (2) Bradycardia ICD Codes: R00.1 - Bradycardia, unspecified Plan: - telemetry reviewed: sinus bradycardia - HR usually in 50s, occasionally goes into the 40s - Holter results noted - Pt NOT on BB - Case reviewed with Cardiology, Dr. Sorenson. - Appreciate Cardiology consultation. Per Cardiology notes its felt that the bradycardia may be secondary to increased vagal tone and as long as the pt is not symptomatic with HR in the 40-50s there is no need for permanent pacemaker from cardiac perspective - Could consider 21 days event monitor as an outpt to r/o A. fib as a cardioembolic etiology for the CVA (3) History of breast cancer in female ICD Codes: Z85.3 - Personal history of malignant neoplasm of breast Status: Chronic (4) Hypothyroidism ICD Codes: E03.9 - Hypothyroidism, unspecified Status: Chronic (5) Dyslipidemia ICD Codes: E78.5 - Hyperlipidemia, unspecified Status: Chronic (6) Hypertension ICD Codes: I10 - Essential (primary) hypertension Status: Chronic Pt Condition on Discharge: Stable Discharge Disposition: Discharge to SNF Discharge Instructions DIET: Follow Instructions for: Heart Healthy Diet, Diabetic Diet Activities you can perform: Weight Bearing as Bryce Follow up Referrals: Neurology - 3 Weeks with Frank Jamil MD PCP Follow-up - [address] Tanesha Felix New Medications: Aspirin (Aspirin) 325 Mg Tab 325 MG PO DAILY for cva, #30 TAB 0 Refills Dexamethasone (Dexamethasone) 4 Mg Tab 4 MG PO DAILY for cva, #4 TAB Insulin Human Regular Inj (Novolin R Inj) 1,000 Unit/10 Ml Vial 1 UNIT SQ ACHS SLIDING SCALE for dm for 30 Days, INJECTION Levetiracetam (Keppra) 500 Mg Tab 500 MG PO Q12HR for cva, #60 TAB Lisinopril (Lisinopril) 10 Mg Tab 10 MG PO Q12HR for htn, #60 TAB Nifedipine ER 24 HR (Nifedipine ER 24 HR) 30 Mg Tab 30 MG PO HS for htn, #30 TAB 0 Refills Pantoprazole (Pantoprazole) 40 Mg Tab 40 MG PO DAILY for gerd, #30 TAB Pravastatin (Pravachol) 40 Mg Tab 40 MG PO HS for hyperlipidemia, #30 TAB 0 Refills Continued Medications: Cholecalciferol (Vitamin D3) 1,000 Unit Chew 1000 UNITS CHEW DAILY for Nutritional Supplement, BOTTLE 0 Refills Latanoprost Opth Drops (Latanoprost Opth Drops) 0.005% Drops 1 DROP EACH EYE HS for Glaucoma, ML 0 Refills Refrigerate until opened. Levothyroxine (Levothyroxine) 25 Mcg Tab 25 MCG PO DAILY for Thyroid, TAB 0 Refills Nifedipine ER 24 HR (Nifedipine ER 24 HR) 30 Mg Tab 30 MG PO DAILY, TAB 0 Refills Charlie Littlejohn DO Sep 05, 2017 18:23
[2017-09-05] MEDS ORDERED: ASPI-183 PO (18:40)
--- NOTE | 2017-09-05 19:48 | RADRPT ---
EXAM DATE/TIME: 09/05/2017 19:16 [place] COMPARISON: No previous studies available for comparison. INDICATIONS : Right leg pain and swelling. MEDICAL HISTORY : Hypercholesterolemia. Hypertension. . Thyroid disease. Headaches. Arthritis. Breast cance r. Radiation therapy. Anxiety. SURGICAL HISTORY : Hysterectomy. Bilateral mastectomy. Left breast lumpectomy. Partial thyroidectomy. Parathyroidecto my. Bilateral cataract removal. ENCOUNTER: Subsequent ACUITY: 1 day PAIN SCORE: 2/10 LOCATION: Right leg. TECHNIQUE: Venous ultrasound of the leg was performed from the inguinal ligament to the proximal calf. Real-jose e, color Doppler and spectral tracing, compression and augmentation techniques were used. FINDINGS: There is normal compressibility of the deep venous system from the inguinal region to the proximal ca lf. No echogenic clot is seen in the lumen of the common femoral, femoral, popliteal, and posterior tibial veins. There is a normal response of the venous system to proximal and distal augmentation an d respiration. CONCLUSION: Normal examination. Ronn Jean Baptiste Jr., MD on September 05, 2017 at 19:43 Board Certified Radiologist. This report was verified electronically.
[2017-09-05] MEDS: LATANOPROST 0.005% OPHT SOLN 2.5 ML BTL EACH EYE SCH (20:52)
[2017-09-05] MEDS: NIFEdipine 30 MG SUSTAINED RELEASE TAB PO SCH (20:53)
[2017-09-05] MEDS: PRAVASTATIN SOD 40 MG TAB PO SCH (20:53)
[2017-09-06 00:48] VITALS: BP 127/62; PULSE 62; RESP 18; TEMP 98.2; O2SAT 97
[2017-09-06] MEDS: CHLORHEXIDINE GLUCONATE 2 % 1 PACK (2 CLOTHS) TOP SCH (04:00)
[2017-09-06] MEDS: LEVOTHYROXINE SODIUM 25 MCG TAB PO SCH (06:44)
[2017-09-06] MEDS: INSULIN NovoLIN REGULAR SUPPLEMENTAL SCALE SQ SCH (08:00)
[2017-09-06 08:09] VITALS: BP 161/74; PULSE 61; RESP 17; TEMP 97.2; O2SAT 94
[2017-09-06] MEDS: SODIUM CHLORIDE 0.9% FLUSH 10 ML FLUSH IV FLUSH SCH (09:00)
[2017-09-06] MEDS: PANTOPRAZOLE SOD 40 MG DELAYED RELEASE TAB PO SCH (09:14)
[2017-09-06] MEDS: levETIRAcetam 500 MG TAB PO SCH (09:15)
[2017-09-06] MEDS: DOCUSATE SODIUM 50 MG/SENNA 8.6 MG TAB PO SCH (09:15)
[2017-09-06] MEDS: CHOLECALCIFEROL (VIT D3) 1000 UNIT TAB PO SCH (09:15)
[2017-09-06] MEDS: DEXAMETHASONE 4 MG TAB PO SCH (09:15)
[2017-09-06] MEDS: LISINOPRIL 10 MG TAB PO SCH (09:15)
[2017-09-06] MEDS: ASPIRIN 81 MG CHEW TAB CHEW SCH (09:16)
== END 2017-09-06 11:31 | DRG 64 ==
LOC: NEPC 16:10 → NEDA 18:56 → N03B 21:23 → N05B 08-31 18:52
PROVIDERS: ADMIT Hospitalist; ATTEND Hospitalist
PROC: 009U3ZX Drainage of Spinal Canal, Percutaneous Approach, Diagnostic (ICD-10-PCS; principal; 2017-08-27)
DX: I63.9 Cerebral infarction, unspecified (principal); G93.6 Cerebral edema; R47.01 Aphasia; G81.91 Hemiplegia, unspecified affecting right dominant side; E87.6 Hypokalemia; R00.1 Bradycardia, unspecified; R26.89 Other abnormalities of gait and mobility; E78.5 Hyperlipidemia, unspecified; I10 Essential (primary) hypertension; E03.9 Hypothyroidism, unspecified; Z90.13 Acquired absence of bilateral breasts and nipples; Z85.3 Personal history of malignant neoplasm of breast; Z17.0 Estrogen receptor positive status [ER+]; H40.9 Unspecified glaucoma; M19.90 Unspecified osteoarthritis, unspecified site; Z87.891 Personal history of nicotine dependence
CPT/HCPCS: 70450; 70544; 70548; 70553; 71045; 71260; 74177; 76937; 80048; 80053; 80061; 81001; 81240; 81241; 81291; 82550; 82945; 82948; 83036; 83090; 83605; 83615; 83735; 83873; 84100; 84157; 84443; 85025; 85027; 85240; 85300; 85303; 85306; 85307; 85597; 85610; 85613; 85652; 85730; 86140; 86146; 86147; 86148; 86403; 86592; 86850; 86900; 86901; 87015; 87040; 87070; 87102; 87103; 87116; 87205; 87206; 87529; 87641; 87804; 88108; 89051; 93005; 93225; 93226; 93306; 93970; 93971; 94150; 95819; 99291; A9579; J0131; J0360; J1100; J1953; J2060; J2270; J2405; J7030; J8540; Q9963; Q9967